=== PATIENT | female | born 1930 | race Caucasian/White ===

== ENCOUNTER 2016-04-29 09:36 | Emergency (ER) | payer MEDICARE, BC ==
[2016-04-29] MEDS ORDERED: SODIUM CHLORIDE 0.9% 1,000 ML IV STA (10:11)
[2016-04-29] MEDS ORDERED: DIPH,PERTUS(ACELL)TETVAC-LF 0.5 ML VIAL IM ONE (10:11)
--- NOTE | 2016-04-29 10:17 | ED ---
Fall HPI <You Dick - Last Filed: 04/29/16 10:23> - General Source: patient, EMS Mode of arrival: EMS <Hi Rocha - Last Filed: 04/29/16 14:04> - General Chief Complaint: Fall Stated Complaint: Fall Time Seen by Provider: 04/29/16 10:03 - History of Present Illness Initial Comments: Patient is a 85yo female presenting after a fall. Patient states she rolled out of bed estimated at 3-4 feet off the ground. Patient denies head injury or LOC. Patient with right hand skin tear and left knee pain. Patient was unable to ambulate and pushed her "life alert." Patient does take Coumadin for PE. Patient denies fever, chills, chest pain, shortness breath, nausea, vomiting, abdominal pain, dysuria. Patient denies any numbness. (Hi Rocha) - Related Data Home Medications Medication Instructions Recorded Confirmed Carbidopa-Levodopa 25-100 mg 1 tab PO BID 10/05/14 04/29/16 [Sinemet 25-100] Donepezil HCl [Aricept] 10 mg PO HS 10/05/14 04/29/16 Oxybutynin Chloride [Ditropan] 5 mg PO BID 10/05/14 04/29/16 Simvastatin [Zocor] 40 mg PO HS 10/05/14 04/29/16 Triamterene-Hctz 37.5-25Mg 1 tab PO DAILY 10/05/14 04/29/16 [Maxzide-25] Warfarin Sodium 6 mg PO SUMOWEFRSA 10/05/14 04/29/16 Calcium Carbonate [Calcium] 600 mg PO DAILY 07/08/15 04/29/16 Multivitamins, Thera [Multivitamin] 1 tab PO DAILY 07/08/15 04/29/16 Ranitidine HCl [Zantac] 150 mg PO BID 07/08/15 04/29/16 Warfarin Sodium 3 mg PO TUTH 07/08/15 04/29/16 Previous Rx's Medication Instructions Recorded traMADol HCL [Ultram] 50 mg PO Q6HR PRN #30 tab 09/17/15 Allergies Allergy/AdvReac Type Severity Reaction Status Date / Time No Known Allergies Allergy Verified 04/29/16 10:03 Review of Systems ROS Other: All systems not noted in ROS Statement are negative. <You Dick - Last Filed: 04/29/16 10:23> ROS Other: All systems not noted in ROS Statement are negative. <Hi Rocha - Last Filed: 04/29/16 14:04> ROS Statement: Those systems with pertinent positive or pertinent negative responses have been documented in the HPI. Constitutional: No fever and no chills. HENT: No congestion, no rhinorrhea and no sore throat. Eyes: No discharge and no redness. Respiratory: No cough and no shortness of breath. Cardiovascular: No chest pain and no palpitations. Gastrointestinal: No nausea, no vomiting, no abdominal pain and no diarrhea. Genitourinary: No dysuria and no hematuria. Musculoskeletal: No back pain and +arthralgias. Skin: Positive skin tear. No pallor and no rash. Neurological: No dizziness and No headaches. (Hi Rocha) Past Medical History Past Medical History: Hyperlipidemia, Hypertension, Pulmonary Embolus (PE) Additional Past Medical History / Comment(s): breast ca History of Any Multi-Drug Resistant Organisms: None Reported Past Surgical History: Breast Surgery, Cholecystectomy Additional Past Surgical History / Comment(s): thyroid cyst Past Psychological History: No Psychological Hx Reported Smoking Status: Never smoker Past Alcohol Use History: None Reported Past Drug Use History: None Reported <Hi Rocha - Last Filed: 04/29/16 14:04> General Exam <You Dick - Last Filed: 04/29/16 10:23> Limitations: no limitations <Hi Rocha - Last Filed: 04/29/16 14:04> - General Exam Comments Initial Comments: Constitutional: Patient appears well-developed and well-nourished. No distress. Head: Normocephalic and atraumatic. Eyes: Conjunctivae and EOM are normal. Right eye exhibits no discharge. Left eye exhibits no discharge. No scleral icterus. Neck: Normal range of motion. Neck supple. Cardiovascular: Normal rate and regular rhythm. +murmur heard. Pulmonary/Chest: Effort normal and breath sounds normal. No respiratory distress. No wheezes. Abdominal: Soft. No distension. There is no tenderness. There is no rebound and no guarding. Right shoulder: Nontender, no crepitus, no deformity Left shoulder: Nontender, no crepitus, no deformity Right arm: Nontender, no crepitus, no deformity Left arm: Nontender, no crepitus, no deformity Right hand: 5 cm skin tear to the dorsal aspect of right hand Left hand: Nontender, no crepitus, no deformity Chest: Nontender, no crepitus, no deformity Pelvis: Stable, nontender, no crepitus, no deformity Back: Nontender, no crepitus, no deformity, no step-offs Right leg: Nontender, no crepitus, no deformity Left leg: Mild abrasion to left knee with mild tenderness. No deformity, no crepitus. Distal sensation and pulses are present in all 4 extremities. Neurological: Patient alert and oriented to person, place, and time. Skin: Skin is warm and dry. Not diaphoretic. Nursing notes and vitals reviewed. (Hi Rocha) Procedures - Laceration Laceration #1 Consent Obtained: verbal consent Time Out Performed: Yes Indication: laceration Site: hand Size (cm): 7 Description: flap Pre-repair: irrigated extensively, deep structures intact Patient Tolerated Procedure: well <Hi Rocha - Last Filed: 04/29/16 14:04> - Laceration Laceration #1 Additional Comments: 3 Steri-Strips applied with approximated edges (Hi Rocha) Medical Decision Making <You Dick - Last Filed: 04/29/16 10:23> - Lab Data Result diagrams: 04/29/16 10:15 04/29/16 12:22 <Hi Rocha - Last Filed: 04/29/16 14:04> - Medical Decision Making Patient was reevaluated by myself, Dr. Dick. Patient resting comfortably in bed. Patient states she did fall out of bed however denies any significant injury. Patient does not recall hitting her head. Head is atraumatic. Neck is nontender. Lungs are clear. Patient does have a heart murmur on auscultation. Chart and orders reviewed. Patient will be followed. Case was earlier discussed with Dr. Abbott. (You Dick) - Lab Data Lab Results 04/29/16 04/29/16 04/29/16 Range/Units 10:15 10:15 10:39 WBC 6.7 (3.8-10.6) k/uL RBC 4.96 (3.80-5.40) m/uL Hgb 15.7 (11.4-16.0) gm/dL Hct 46.0 (34.0-46.0) % MCV 92.7 (80.0-100.0) fL MCH 31.6 (25.0-35.0) pg MCHC 34.1 (31.0-37.0) g/dL RDW 12.8 (11.5-15.5) % Plt Count 157 (150-450) k/uL Neutrophils % 43 % Lymphocytes % 46 % Monocytes % 6 % Eosinophils % 2 % Basophils % 1 % Neutrophils # 2.9 (1.3-7.7) k/uL Lymphocytes # 3.0 (1.0-4.8) k/uL Monocytes # 0.4 (0-1.0) k/uL Eosinophils # 0.1 (0-0.7) k/uL Basophils # 0.0 (0-0.2) k/uL PT 38.3 H (9.0-12.0) sec INR 3.9 (<1.1) APTT 35.3 H (22.0-30.0) sec Sodium (137-145) mmol/L Potassium (3.5-5.1) mmol/L Chloride (98-107) mmol/L Carbon Dioxide (22-30) mmol/L Anion Gap mmol/L BUN (7-17) mg/dL Creatinine (0.52-1.04) mg/dL Est GFR (MDRD) Af Amer (>60 ml/min/1.73 sqM) Est GFR (MDRD) Non-Af (>60 ml/min/1.73 sqM) Glucose (74-99) mg/dL POC Glucose (mg/dL) 115 H (75-99) mg/dL POC Glu Radiologist Physician ID Branch, [place] Calcium (8.4-10.2) mg/dL Total Bilirubin (0.2-1.3) mg/dL AST (14-36) U/L ALT (9-52) U/L Alkaline Phosphatase (38-126) U/L Total Protein (6.3-8.2) g/dL Albumin (3.5-5.0) g/dL Lipase (23-300) U/L Urine Color Urine Appearance (Clear) Urine pH (5.0-8.0) Ur Specific [place] (1.001-1.035) Urine Protein (Negative) Urine Glucose (UA) (Negative) Urine Ketones (Negative) Urine Blood (Negative) Urine Nitrate (Negative) Urine Bilirubin (Negative) Urine Urobilinogen (<2.0) mg/dL Ur Leukocyte Esterase (Negative) Urine RBC (0-5) /hpf Urine WBC (0-5) /hpf Ur Squamous Epith Cells (0-4) /hpf Hyaline Casts (0-2) /lpf 04/29/16 04/29/16 Range/Units 12:22 13:10 WBC (3.8-10.6) k/uL RBC (3.80-5.40) m/uL Hgb (11.4-16.0) gm/dL Hct (34.0-46.0) % MCV (80.0-100.0) fL MCH (25.0-35.0) pg MCHC (31.0-37.0) g/dL RDW (11.5-15.5) % Plt Count (150-450) k/uL Neutrophils % % Lymphocytes % % Monocytes % % Eosinophils % % Basophils % % Neutrophils # (1.3-7.7) k/uL Lymphocytes # (1.0-4.8) k/uL Monocytes # (0-1.0) k/uL Eosinophils # (0-0.7) k/uL Basophils # (0-0.2) k/uL PT (9.0-12.0) sec INR (<1.1) APTT (22.0-30.0) sec Sodium 142 (137-145) mmol/L Potassium 3.4 L (3.5-5.1) mmol/L Chloride 106 (98-107) mmol/L Carbon Dioxide 23 (22-30) mmol/L Anion Gap 13 mmol/L BUN 22 H (7-17) mg/dL Creatinine 1.45 H (0.52-1.04) mg/dL Est GFR (MDRD) Af Amer 41 (>60 ml/min/1.73 sqM) Est GFR (MDRD) Non-Af 34 (>60 ml/min/1.73 sqM) Glucose 118 H (74-99) mg/dL POC Glucose (mg/dL) (75-99) mg/dL POC Glu Radiologist Physician ID Calcium 9.5 (8.4-10.2) mg/dL Total Bilirubin 1.2 (0.2-1.3) mg/dL AST 21 (14-36) U/L ALT 29 (9-52) U/L Alkaline Phosphatase 71 (38-126) U/L Total Protein 6.8 (6.3-8.2) g/dL Albumin 3.8 (3.5-5.0) g/dL Lipase 113 (23-300) U/L Urine Color Yellow Urine Appearance Clear (Clear) Urine pH 6.0 (5.0-8.0) Ur Specific [place] 1.012 (1.001-1.035) Urine Protein Negative (Negative) Urine Glucose (UA) Negative (Negative) Urine Ketones Negative (Negative) Urine Blood Trace H (Negative) Urine Nitrate Negative (Negative) Urine Bilirubin Negative (Negative) Urine Urobilinogen <2.0 (<2.0) mg/dL Ur Leukocyte Esterase Negative (Negative) Urine RBC 4 (0-5) /hpf Urine WBC 1 (0-5) /hpf Ur Squamous Epith Cells <1 (0-4) /hpf Hyaline Casts 1 (0-2) /lpf Disposition <You Dick - Last Filed: 04/29/16 10:23> <Hi Rocha - Last Filed: 04/29/16 14:04> Clinical Impression: Fall, Skin tear Disposition: HOME SELF-CARE Condition: Good Instructions: Fall Prevention for Older Adults (ED), Acute Wound Care (ED) Referrals: Rodriguez Deutsch MD [Primary Care Provider] - 1-2 days
[2016-04-29 10:41] LABS: Glucose,Whole Blood 115 mg/dL (75-99)
[2016-04-29 10:52] LABS: Basophils % (A) 1 %; CH 32.5; CHCM 35.2; Eosinophils # (A) 0.1 k/uL (0-0.7); Eosinophils % (A) 2 %; HDW 2.53; HGB 15.7 gm/dL (11.4-16.0); Luc # (Auto) 0.18; Luc % (Auto) 3; Lymphocytes % (A) 46 %; MCH 31.6 pg (25.0-35.0); MCHC 34.1 g/dL (31.0-37.0); MCV 92.7 fL (80.0-100.0); Mean Platelet Volume 9.2; Monocytes # (A) 0.4 k/uL (0-1.0); Monocytes % (A) 6 %; Neutrophils # (A) 2.9 k/uL (1.3-7.7); Neutrophils % (A) 43 %; RBC 4.96 m/uL (3.80-5.40); RDW 12.8 % (11.5-15.5); WBC 6.7 k/uL (3.8-10.6); WBC (Perox) 7.03
[2016-04-29 11:11] LABS: INR 3.9 (<1.1); Partial Thromboplastin Time 35.3 sec (22.0-30.0); Prothrombin Time 38.3 sec (9.0-12.0)
--- NOTE | 2016-04-29 11:43 | CT ---
EXAMINATION TYPE: CT brain mervin wo con DATE OF EXAM: 04/29/2016 11:27 AM COMPARISON: NONE HISTORY: Fall from bed CT DLP: 1108.4 mGycm, Automated exposure control for dose reduction was used. CONTRAST: None CT of the brain is performed utilizing 3 mm thick sections through the posterior fossa and 3 mm thick sections through the remaining calvarium. Study is performed within 24 hours of arrival to the hospital. No abnormal hyperdensity is present to suggest an acute intracranial hemorrhage. No mass lesion is evident. No acute infarcts are evident. The ventricular white matter hypodensity is present, most likely on the basis of chronic white matter ischemic changes. Ventricles and sulci are prominent for the patient age. Paranasal sinuses and mastoid air cells within the [id number] are clear. Hyperostosis frontalis internus is present. IMPRESSIONS: 1. Atrophy with periventricular white matter ischemic changes CT cervical spine. COMPARISON: None CT of the cervical spine is performed in the axial plane at 2 mm thick sections. Reconstructed image s in the coronal, and sagittal plane are reviewed on the computer. No acute fractures are evident. Vertebral body alignment is normal. There is diffuse loss of disc height throughout the cervical spine. Small anterior vertebral body spu rs are present especially noted at C4, C5, C6. Vertebral body heights are preserved. No spinal canal stenosis is evident. There is left foraminal narrowing which appears severe moderate foraminal narrowing on the right whic h appears moderate at C3-4. Mild bilateral foraminal narrowing is present C3 5. IMPRESSIONS: 1. Degenerative disc changes. 2. Uncovertebral joint hypertrophy contributes to severe foraminal narrowing C3-4 C4-5. 3. No acute osseous abnormality
--- NOTE | 2016-04-29 12:50 | XR ---
EXAMINATION TYPE: XR chest 1V portable DATE OF EXAM: 04/29/2016 12:38 PM COMPARISON: 12/06/2011 HISTORY: Fell out of bed. Chest pain. TECHNIQUE: Single frontal view of the chest is obtained. FINDINGS: There is no heart failure nor confluent pneumonic infiltrate. There is mild coarsening of interstitial markings. Thoracic aorta is atheromatous. Bony thorax appears intact. IMPRESSION: Pulmonary fibrotic changes. No acute lung disease. No change.
[2016-04-29 12:51] LABS: Calcium 9.5 mg/dL (8.4-10.2); Potassium 3.4 mmol/L (3.5-5.1); Total Bilirubin 1.2 mg/dL (0.2-1.3); Total Protein 6.8 g/dL (6.3-8.2)
--- NOTE | 2016-04-29 12:52 | XR ---
EXAMINATION TYPE: XR hand complete RT DATE OF EXAM: 04/29/2016 12:39 PM COMPARISON: NONE HISTORY: Fell out of bed TECHNIQUE: . 3 views FINDINGS: There is osteopenia. Metacarpals appear intact. There is narrowing of the IP joint spaces. There are no erosions. IMPRESSION: There are some osteoarthritic changes. No fracture.
--- NOTE | 2016-04-29 12:54 | XR ---
EXAMINATION TYPE: XR pelvis AP view DATE OF EXAM: 04/29/2016 12:39 PM COMPARISON: NONE HISTORY: Fell out of bed TECHNIQUE: Single view FINDINGS: The pelvic ring is intact. There is a right hip prosthesis. Sacroiliac joints are intact. T here is moderate osteoarthritis in the left hip joint. IMPRESSION: Left hip osteoarthritis. No fracture seen.
--- NOTE | 2016-04-29 12:55 | XR ---
EXAMINATION TYPE: XR knee complete LT DATE OF EXAM: 04/29/2016 12:39 PM COMPARISON: NONE HISTORY: Fell out of bed. Pain. TECHNIQUE: 3 views FINDINGS: There is narrowing of the lateral joint space. There is spurring on the superior patella. I see no fracture nor dislocation. There is no definite joint effusion. IMPRESSION: Osteoarthritis. No fracture.
[2016-04-29 13:33] LABS: Appearance,Urine Clear (Clear); Bilirubin,Urine Negative (Negative); Glucose,Urine (UA) Negative (Negative); Ketones,Urine Negative (Negative); Leukocyte Esterase,Urine Negative (Negative); Nitrite,Urine Negative (Negative); Particle Count 1430; Protein,Urine Negative (Negative); RBC,Urine 4 /hpf (0-5); Specific Gravity,Urine 1.012 (1.001-1.035); Squamous Epithelial Cell,Urine <1 /hpf (0-4); UA Billing (MACRO vs. MICRO) MICRO; Urobilinogen,Urine <2.0 mg/dL (<2.0); WBC,Urine 1 /hpf (0-5)
[2016-04-29 14:35] VITALS: BP 140/68; PULSE 64; RESP 18; TEMP 98.4
== END 2016-04-29 14:20 | disposition home or self-care (01) ==
LOC: EC 09:36
DX: S61.411A Laceration without foreign body of right hand, initial encounter (principal); S80.212A Abrasion, left knee, initial encounter; E78.5 Hyperlipidemia, unspecified; I10 Essential (primary) hypertension; Z23 Encounter for immunization; Z85.3 Personal history of malignant neoplasm of breast; Z86.711 Personal history of pulmonary embolism; Z79.01 Long term (current) use of anticoagulants; Z79.899 Other long term (current) drug therapy; W06.XXXA Fall from bed, initial encounter
CPT/HCPCS: 36415; 70450; 71010; 72125; 72170; 80053; 81001; 83690; 85025; 85610; 85730; 87086; 90471; 90715; 93005; 96360; 96361; 99284

== ENCOUNTER → 2016-08-18 | Outpatient (CLI) | payer MEDICARE, BC ==
--- NOTE | 2016-08-21 07:07 | MM ---
Reason for exam: additional evaluation requested from prior study. Last mammogram was performed 1 year ago. History: Patient is postmenopausal and has history of breast cancer at age 63. Family history of breast cancer in sister, premenopausal breast cancer in sister at age 40, and breast cancer in paternal aunt at age 30. Mastectomy of the left breast, 1994. Excisional biopsy of the left breast. Physical Findings: Nurse did not find any significant physical abnormalities on exam. MG Diagnostic Mammo RT w CAD CC, MLO, and XCCL view(s) were taken of the right breast. Prior study comparison: August 13, 2015, right breast MG 3d diag mammo w/cad RT. August 07, 2014, right breast MG diagnostic mammo RT w CAD. The breast tissue is almost entirely fat. Finding: There are linear calcifications in the right breast consistent with secretory disease. No significant new findings when compared with previous films. These results were verbally communicated with the patient and result sheet given to the patient on 08/18/16. ASSESSMENT: Benign, BI-RAD 2 RECOMMENDATION: Routine screening mammogram of the right breast in 1 year.
== END | disposition home or self-care (01) ==
LOC: RADMAMWWP 12:49
PROVIDERS: ATTEND Surgery
DX: R92.8 Other abnormal and inconclusive findings on diagnostic imaging of breast (principal); Z85.3 Personal history of malignant neoplasm of breast

== ENCOUNTER 2016-09-11 19:57 | Inpatient (IN) | payer MEDICARE, BC ==
--- NOTE | 2016-09-11 20:36 | ED ---
Dizziness HPI - General Chief Complaint: Dizziness Stated Complaint: Chest Pain Time Seen by Provider: 09/11/16 20:32 Source: patient, family Mode of arrival: wheelchair Limitations: no limitations - History of Present Illness Initial Comments: This patient is an 85-year-old woman who presents after she had an episode of dizziness or lightheadedness tonight she does have some combination of these feelings. She states that the symptoms came on tonight when she sat down to have her evening meal. She also broke into a sweat. Patient's daughter reports that she was also describing tightness in her chest, but the patient is denying any chest pain. The symptoms did resolve about the time that she was getting to the hospital tonight. She states that she is currently feeling well and does want to go home. MD Complaint: lightheadedness, near syncope -: hour(s) Timing: sudden onset Description: lightheadedness, off-balance History of Same: Yes History of Trauma: No Severity: severe Worsens With: nothing Associated Symptoms: diaphoresis - Related Data Home Medications Medication Instructions Recorded Confirmed Carbidopa-Levodopa 25-100 mg 1 tab PO BID 10/05/14 09/11/16 [Sinemet 25-100] Donepezil HCl [Aricept] 10 mg PO HS 10/05/14 09/11/16 Oxybutynin Chloride [Ditropan] 5 mg PO BID 10/05/14 09/11/16 Simvastatin [Zocor] 40 mg PO HS 10/05/14 09/11/16 Triamterene-Hctz 37.5-25Mg 1 tab PO DAILY 10/05/14 09/11/16 [Maxzide-25] Warfarin Sodium 6 mg PO SUMOWEFRSA 10/05/14 09/11/16 Calcium Carbonate [Calcium] 600 mg PO DAILY 07/08/15 09/11/16 Multivitamins, Thera [Multivitamin] 1 tab PO DAILY 07/08/15 09/11/16 Warfarin Sodium 3 mg PO TUTH 07/08/15 09/11/16 Allergies Allergy/AdvReac Type Severity Reaction Status Date / Time No Known Allergies Allergy Verified 09/11/16 20:28 Review of Systems ROS Statement: Those systems with pertinent positive or pertinent negative responses have been documented in the HPI. ROS Other: All systems not noted in ROS Statement are negative. Constitutional: Denies: fever, chills, weakness Eyes: Denies: vision change Respiratory: Reports: dyspnea. Denies: cough, wheezes, hemoptysis Cardiovascular: Reports: as per HPI, chest pain. Denies: palpitations, orthopnea, edema, syncope Gastrointestinal: Denies: abdominal pain, nausea, vomiting Genitourinary: Denies: dysuria, hematuria Musculoskeletal: Denies: back pain Skin: Denies: rash Neurological: Denies: headache, weakness, numbness Past Medical History Past Medical History: Hyperlipidemia, Hypertension, Pulmonary Embolus (PE) Additional Past Medical History / Comment(s): breast ca History of Any Multi-Drug Resistant Organisms: None Reported Past Surgical History: Breast Surgery, Cholecystectomy Additional Past Surgical History / Comment(s): thyroid cyst Past Psychological History: No Psychological Hx Reported Smoking Status: Never smoker Past Alcohol Use History: None Reported Past Drug Use History: None Reported General Exam Limitations: no limitations General appearance: alert, in no apparent distress Head exam: Present: atraumatic, normocephalic Eye exam: Present: normal appearance. Absent: scleral icterus, conjunctival injection ENT exam: Present: normal oropharynx Neck exam: Present: normal inspection Respiratory exam: Present: normal lung sounds bilaterally. Absent: respiratory distress, wheezes, rales, rhonchi, stridor Cardiovascular Exam: Present: regular rate, normal rhythm, systolic murmur ( Patient has a harsh grade 3/6 systolic ejection murmur). Absent: diastolic murmur, rubs, gallop GI/Abdominal exam: Present: soft. Absent: distended, tenderness, guarding, rebound, mass Extremities exam: Present: normal inspection, normal capillary refill. Absent: pedal edema, calf tenderness Back exam: Present: normal inspection. Absent: CVA tenderness (R), CVA tenderness (L) Neurological exam: Present: alert Skin exam: Present: warm, dry, intact, normal color. Absent: rash Course Vital Signs 09/11/16 20:01 Temperature 97.3 F L Pulse Rate 57 L Respiratory 16 Rate Blood Pressure 159/72 O2 Sat by Pulse 98 Oximetry EKG Findings - EKG Comments: EKG Findings:: There is an RSR prime V1 suggesting possible right ventricular conduction delay. - EKG Results: EKG: interpreted by ERMD, sinus rhythm EKG shows: bradycardia (Rate 59 bpm) - Blocks, [place], Hypertrophy, ST Abn: AV and intraventricular conduction: left anterior fascicular block Medical Decision Making - Medical Decision Making This patient is an 85-year-old woman presenting with presyncopal symptoms as well as diaphoresis and chest pain. She does have a significant cardiac murmur on the exam and both the patient and her family deny any previous knowledge of this. I'm not able find a previous echocardiogram, and therefore will admit patient to have this and cardiology consultation. Suspect that symptoms are insurance follow up representative of aortic stenosis. - Lab Data Result diagrams: 09/11/16 20:22 09/11/16 20:22 Lab Results 09/11/16 09/11/16 09/11/16 Range/Units 20:22 20:22 20:22 WBC 10.1 (3.8-10.6) k/uL RBC 4.88 (3.80-5.40) m/uL Hgb 15.8 (11.4-16.0) gm/dL Hct 47.5 H (34.0-46.0) % MCV 97.5 (80.0-100.0) fL MCH 32.4 (25.0-35.0) pg MCHC 33.2 (31.0-37.0) g/dL RDW 13.7 (11.5-15.5) % Plt Count 183 (150-450) k/uL Neutrophils % 73 % Lymphocytes % 18 % Monocytes % 6 % Eosinophils % 1 % Basophils % 1 % Neutrophils # 7.3 (1.3-7.7) k/uL Lymphocytes # 1.8 (1.0-4.8) k/uL Monocytes # 0.6 (0-1.0) k/uL Eosinophils # 0.1 (0-0.7) k/uL Basophils # 0.1 (0-0.2) k/uL Sodium 139 (137-145) mmol/L Potassium 5.2 H (3.5-5.1) mmol/L Chloride 105 (98-107) mmol/L Carbon Dioxide 22 (22-30) mmol/L Anion Gap 12 mmol/L BUN 29 H (7-17) mg/dL Creatinine 1.30 H (0.52-1.04) mg/dL Est GFR (MDRD) Af Amer 47 (>60 ml/min/1.73 sqM) Est GFR (MDRD) Non-Af 39 (>60 ml/min/1.73 sqM) Glucose 160 H (74-99) mg/dL Calcium 9.8 (8.4-10.2) mg/dL Magnesium 1.9 (1.6-2.3) mg/dL Total Bilirubin 1.6 H (0.2-1.3) mg/dL AST 52 H (14-36) U/L ALT 21 (9-52) U/L Alkaline Phosphatase 87 (38-126) U/L Total Creatine Kinase 66 (30-135) U/L CK-MB (CK-2) 0.4 (0.0-2.4) ng/mL CK-MB (CK-2) Rel Index 0.6 Troponin I 0.017 (0.000-0.034) ng/mL NT-Pro-B Natriuret Pep pg/mL Total Protein 7.6 (6.3-8.2) g/dL Albumin 4.5 (3.5-5.0) g/dL 09/11/16 Range/Units 20:22 WBC (3.8-10.6) k/uL RBC (3.80-5.40) m/uL Hgb (11.4-16.0) gm/dL Hct (34.0-46.0) % MCV (80.0-100.0) fL MCH (25.0-35.0) pg MCHC (31.0-37.0) g/dL RDW (11.5-15.5) % Plt Count (150-450) k/uL Neutrophils % % Lymphocytes % % Monocytes % % Eosinophils % % Basophils % % Neutrophils # (1.3-7.7) k/uL Lymphocytes # (1.0-4.8) k/uL Monocytes # (0-1.0) k/uL Eosinophils # (0-0.7) k/uL Basophils # (0-0.2) k/uL Sodium (137-145) mmol/L Potassium (3.5-5.1) mmol/L Chloride (98-107) mmol/L Carbon Dioxide (22-30) mmol/L Anion Gap mmol/L BUN (7-17) mg/dL Creatinine (0.52-1.04) mg/dL Est GFR (MDRD) Af Amer (>60 ml/min/1.73 sqM) Est GFR (MDRD) Non-Af (>60 ml/min/1.73 sqM) Glucose (74-99) mg/dL Calcium (8.4-10.2) mg/dL Magnesium (1.6-2.3) mg/dL Total Bilirubin (0.2-1.3) mg/dL AST (14-36) U/L ALT (9-52) U/L Alkaline Phosphatase (38-126) U/L Total Creatine Kinase (30-135) U/L CK-MB (CK-2) (0.0-2.4) ng/mL CK-MB (CK-2) Rel Index Troponin I (0.000-0.034) ng/mL NT-Pro-B Natriuret Pep 257 pg/mL Total Protein (6.3-8.2) g/dL Albumin (3.5-5.0) g/dL Disposition Clinical Impression: Near syncope, Murmur, cardiac Disposition: ADMITTED IP TO THIS HOSP Condition: Fair Referrals: Rodriguez Deutsch MD [Primary Care Provider] - 1-2 days
[2016-09-11 20:41] LABS: Basophils # (A) 0.1 k/uL (0-0.2); Basophils % (A) 1 %; CH 33.4; CHCM 34.4; Eosinophils # (A) 0.1 k/uL (0-0.7); Eosinophils % (A) 1 %; HCT 47.5 % (34.0-46.0); HDW 2.37; HGB 15.8 gm/dL (11.4-16.0); Luc # (Auto) 0.16; Luc % (Auto) 2; Lymphocytes # (A) 1.8 k/uL (1.0-4.8); Lymphocytes % (A) 18 %; MCH 32.4 pg (25.0-35.0); MCHC 33.2 g/dL (31.0-37.0); MCV 97.5 fL (80.0-100.0); Mean Platelet Volume 8.9; Monocytes # (A) 0.6 k/uL (0-1.0); Monocytes % (A) 6 %; Neutrophils # (A) 7.3 k/uL (1.3-7.7); Neutrophils % (A) 73 %; RBC 4.88 m/uL (3.80-5.40); RDW 13.7 % (11.5-15.5); WBC 10.1 k/uL (3.8-10.6); WBC (Perox) 9.45
[2016-09-11 20:54] LABS: Calcium 9.8 mg/dL (8.4-10.2); Magnesium 1.9 mg/dL (1.6-2.3); Potassium 5.2 mmol/L (3.5-5.1); Total Bilirubin 1.6 mg/dL (0.2-1.3); Total Protein 7.6 g/dL (6.3-8.2)
[2016-09-11 21:09] LABS: Creatine Kinase MB 0.4 ng/mL (0.0-2.4); Troponin I 0.017 ng/mL (0.000-0.034)
--- NOTE | 2016-09-11 21:43 | XR ---
EXAMINATION TYPE: XR chest 1V portable DATE OF EXAM: 09/11/2016 COMPARISON: 04/29/2016 HISTORY: Dizziness TECHNIQUE: Single frontal view of the chest is obtained. FINDINGS: There is no heart failure nor confluent pneumonic infiltrate. There is coarsening of inter stitial markings. Thoracic aorta is atheromatous. There are chest leads. IMPRESSION: Pulmonary fibrotic changes. No acute lung disease. No change.
[2016-09-11 23:10] VITALS: BMI 28.5
[2016-09-12 02:33] LABS: Prothrombin Time 29.1 sec (9.0-12.0)
[2016-09-12 02:36] LABS: Creatine Kinase 36 U/L (30-135)
[2016-09-12 02:50] LABS: Creatine Kinase MB 0.4 ng/mL (0.0-2.4); Troponin I <0.012 ng/mL (0.000-0.034)
[2016-09-12] MEDS: MULTIVITAMINS, THERA 1 EACH TAB PO SCH (08:39)
[2016-09-12] MEDS: OXYBUTYNIN CHLORIDE 5 MG TAB PO SCH ×2 (08:39→21:37)
[2016-09-12] MEDS: CALCIUM CARBONATE 500 MG CHEWABLE PO SCH (08:39)
[2016-09-12] MEDS: CARBIDOPA-LEVODOPA 25-100 MG 1 EACH TAB PO SCH ×3 (08:39→21:37)
[2016-09-12] MEDS: TRIAMTERENE-HCTZ 37.5-25MG 1 EACH TAB PO SCH (08:39)
[2016-09-12] MEDS ORDERED: ASPIRIN 325 MG TAB PO SCH (09:00)
[2016-09-12 09:06] LABS: Cholesterol 206 mg/dL (<200); HDL Cholesterol 76 mg/dL (40-60); Triglycerides 97 mg/dL (<150)
[2016-09-12 09:25] LABS: Creatine Kinase MB 0.3 ng/mL (0.0-2.4); Troponin I <0.012 ng/mL (0.000-0.034)
[2016-09-12 09:31] LABS: Creatine Kinase 37 U/L (30-135)
--- NOTE | 2016-09-12 10:35 | ECHOF ---
Referral Reason:near syncope, new murmur MEASUREMENTS -------- HEIGHT: 172.7 cm WEIGHT: 84.8 kg BP: 143/67 IVSd: 1.2 cm (0.6 - 1.1) LVIDd: 3.6 cm (3.9 - 5.3) LVPWd: 1.2 cm (0.6 - 1.1) IVSs: 1.7 cm LVIDs: 1.6 cm LVPWs: 1.7 cm Ao Diam: 3.2 cm (2.0 - 3.7) AV Cusp: 1.1 cm (1.5 - 2.6) LA Diam: 2.9 cm (2.7 - 3.8) MV EXCURSION: 13.883 mm (> 18.000) MV EF SLOPE: 120 mm/s (70 - 150) EPSS: 2.8 cm MV E Cameron: 0.85 m/s MV DecT: 314 ms MV A Cameron: 0.94 m/s MV E/A Ratio: 0.90 AV maxP.24 mmHg AV meanP.97 mmHg AR PHT: 915 ms RAP: 5.00 mmHg RVSP: 21.42 mmHg FINDINGS -------- Sinus rhythm. This was a technically good study. There is mild concentric left ventricular hypertrophy. Overall left ventricular systolic function is normal with, an EF between 55 - 60 %. The right ventricle is normal in size and function. The left atrium is normal in size. The right atrium is normal in size. Aortic valve is trileaflet and is severely thickened. Trace amount of aortic regurgitation. There is moderate aortic stenosis present. Peak/mean gradient across the Aortic Valve is 31.24mmHg / 18.97mmHg. The mitral valve leaflets are mildly thickened. Mild mitral annular calcification present. Mild mitral regurgitation is present. Mild tricuspid regurgitation present. The right ventricular systolic pressure, as measured by Doppler, is 21.42mmHg. Pulmonic valve appears structurally normal. The aortic root size is normal. The pericardium is normal. CONCLUSIONS -------- 1. Sinus rhythm. 2. There is moderate aortic stenosis present. 3. Peak/mean gradient across the Aortic Valve is 31.24mmHg / 18.97mmHg. 4. The mitral valve leaflets are mildly thickened. 5. Mild mitral annular calcification present. 6. Mild mitral regurgitation is present. 7. Mild tricuspid regurgitation present. 8. The right ventricular systolic pressure, as measured by Doppler, is 21.42mmHg. 9. Pulmonic valve appears structurally normal. 10. The aortic root size is normal. 11. The pericardium is normal. 12. This was a technically good study. 13. There is mild concentric left ventricular hypertrophy. 14. Overall left ventricular systolic function is normal with, an EF between 55 - 60 %. 15. The right ventricle is normal in size and function. 16. The left atrium is normal in size. 17. The right atrium is normal in size. 18. Aortic valve is trileaflet and is severely thickened. 19. Trace amount of aortic regurgitation. HALF SECTION IRONER: Ana Maria Chaves RDCS
--- NOTE | 2016-09-12 13:44 | P.CRDCN ---
History of Present Illness Consult date: 09/12/16 Requesting physician: [place] Ferrari Reason for Consult (text): Dizziness Chief complaint: Diaphoresis and dizziness History of present illness: This is a pleasant 85-year-old female with history of hypertension, hyperlipidemia, Parkinson's, prior pulmonary embolism, on Coumadin, who presented to the hospital with symptoms of sudden onset of diaphoresis with associated dizziness. Patient states that she was sitting eating her dinner, became extremely diaphoretic and dizzy. Shortly thereafter she had an episode of nausea with vomiting. By the time patient arrived to the hospital, symptoms had pretty much resolved. Shunt denies having any chest pain, however ER documentation suggests that the daughter mentioned she had a tight feeling in her chest. EKG on admission here showed a normal sinus rhythm, with ST T changes noted in the anterior lateral leads. White blood cell count normal, hemoglobin 15.8, platelet count 183. D-dimer 0.43, potassium 5.2. BUN 29, creatinine 1.3. Troponins 0.017, 0.012, 0.012. BNP level 257. INR 3.0. Cholesterol 206, LDL 111, HDL 76. Chest x-ray reveals pulmonary fibrotic changes with no active lung disease. Blood pressure on arrival here 158/72 with a heart rate in the 50s. Blood pressure this morning 122/78 with a heart rate in the 60s, afebrile. At the time of my examination, patient denies any dizziness, no diaphoresis, no chest discomfort, breathing overall is stable. She is currently on aspirin 325 mg daily, Lipitor 20 mg daily, triamterene hydrochlorothiazide, Coumadin 6 mg alternating with 3 mg every other day. Past Medical History Past Medical History: Cancer, Hyperlipidemia, Hypertension, Pulmonary Embolus ( PE) Additional Past Medical History / Comment(s): breast ca w/ L masectomy History of Any Multi-Drug Resistant Organisms: None Reported Past Surgical History: Breast Surgery, Cholecystectomy Additional Past Surgical History / Comment(s): thyroid cyst Past Anesthesia/Blood Transfusion Reactions: No Reported Reaction Past Psychological History: No Psychological Hx Reported Smoking Status: Never smoker Past Alcohol Use History: None Reported Past Drug Use History: None Reported Medications and Allergies Home Medications Medication Instructions Recorded Confirmed Type Carbidopa-Levodopa 25-100 mg 1 tab PO BID 10/05/14 09/11/16 History [Sinemet 25-100] Donepezil HCl [Aricept] 10 mg PO HS 10/05/14 09/11/16 History Oxybutynin Chloride [Ditropan] 5 mg PO BID 10/05/14 09/11/16 History Simvastatin [Zocor] 40 mg PO HS 10/05/14 09/11/16 History Triamterene-Hctz 37.5-25Mg 1 tab PO DAILY 10/05/14 09/11/16 History [Maxzide-25] Warfarin Sodium 6 mg PO SUMOWEFRSA 10/05/14 09/11/16 History Calcium Carbonate [Calcium] 600 mg PO DAILY 07/08/15 09/11/16 History Multivitamins, Thera [Multivitamin] 1 tab PO DAILY 07/08/15 09/11/16 History Warfarin Sodium 3 mg PO TUTH 07/08/15 09/11/16 History Allergies Allergy/AdvReac Type Severity Reaction Status Date / Time No Known Allergies Allergy Verified 09/11/16 20:28 Physical Exam Vitals: Vital Signs Temp Pulse Pulse Resp BP BP Pulse Ox 09/12/16 12:00 97.2 F L 66 16 122/78 96 09/12/16 08:39 97.8 F 66 18 125/56 95 09/12/16 03:37 97.0 F L 60 18 143/67 92 L 09/12/16 00:00 97.2 F L 68 18 152/65 97 09/11/16 22:19 97.6 F 68 16 152/65 97 09/11/16 21:47 69 16 164/74 96 09/11/16 20:01 97.3 F L 57 L 16 159/72 98 Intake and Output 09/11/16 09/12/16 09/12/16 22:59 06:59 14:59 Intake Total 260 Output Total 300 Balance -300 260 Intake: IV 10 Invasive Line 1 10 Oral 250 Output: Urine 300 Other: Voiding Method Toilet Toilet Diaper Diaper # Voids 1 1 Weight 85.2 kg 84 kg PHYSICAL EXAMINATION: HEENT: Head is atraumatic, normocephalic. Pupils equal, round. Neck is supple. There is no elevated jugular venous pressure. HEART EXAMINATION: Heart S1, systolic ejection murmur suggestive of moderate to severe aortic stenosis is heard. CHEST EXAMINATION: Lungs are clear to auscultation and precussion. No chest wall tenderness is noted on palpation or with deep breathing. ABDOMEN: Soft, nontender. Bowel sounds are heard. No organomegaly noted. EXTREMITIES: 2+ peripheral pulses with no evidence of peripheral edema and no calf tenderness noted. NEUROLOGIC patient is awake, alert and oriented -3. . Results 09/11/16 20:22 09/11/16 20:22 Cardiac Enzymes 09/11/16 09/11/16 09/12/16 Range/Units 20:22 20:22 01:59 AST 52 H (14-36) U/L CK-MB (CK-2) 0.4 0.4 (0.0-2.4) ng/mL Troponin I 0.017 <0.012 (0.000-0.034) ng/mL 09/12/16 Range/Units 08:17 AST (14-36) U/L CK-MB (CK-2) 0.3 (0.0-2.4) ng/mL Troponin I <0.012 (0.000-0.034) ng/mL Coagulation 09/12/16 Range/Units 01:59 PT 29.1 H (9.0-12.0) sec APTT 30.0 (22.0-30.0) sec Lipids 09/12/16 Range/Units 08:17 Triglycerides 97 (<150) mg/dL Cholesterol 206 H (<200) mg/dL HDL Cholesterol 76 H (40-60) mg/dL CBC 09/11/16 Range/Units 20:22 WBC 10.1 (3.8-10.6) k/uL RBC 4.88 (3.80-5.40) m/uL Hgb 15.8 (11.4-16.0) gm/dL Hct 47.5 H (34.0-46.0) % Plt Count 183 (150-450) k/uL Comprehensive Metabolic Panel 09/11/16 Range/Units 20:22 Sodium 139 (137-145) mmol/L Potassium 5.2 H (3.5-5.1) mmol/L Chloride 105 (98-107) mmol/L Carbon Dioxide 22 (22-30) mmol/L BUN 29 H (7-17) mg/dL Creatinine 1.30 H (0.52-1.04) mg/dL Glucose 160 H (74-99) mg/dL Calcium 9.8 (8.4-10.2) mg/dL AST 52 H (14-36) U/L ALT 21 (9-52) U/L Alkaline Phosphatase 87 (38-126) U/L Total Protein 7.6 (6.3-8.2) g/dL Albumin 4.5 (3.5-5.0) g/dL Current Medications Generic Name Dose Route Start Last Admin Trade Name Ailyn PRN Reason Stop Dose Admin Aspirin 325 mg 09/12/16 09:00 09/12/16 08:39 Aspirin PO 325 mg DAILY MAGO Administration Atorvastatin Calcium 20 mg 09/12/16 21:00 Lipitor PO HS [facility] Calcium Carbonate/Glycine 500 mg 09/12/16 09:00 09/12/16 08:39 Tums PO 500 mg DAILY MAGO Administration Carbidopa/Levodopa 1 each 09/12/16 09:00 09/12/16 08:46 Sinemet 25-100 PO Not Given BID [facility] Donepezil HCl 10 mg 09/12/16 21:00 Aricept PO HS [facility] Multivitamins 1 each 09/12/16 09:00 09/12/16 08:39 Theragran PO 1 each DAILY [facility] Administration Oxybutynin Chloride 5 mg 09/12/16 09:00 09/12/16 08:39 Ditropan PO 5 mg BID [facility] Administration Triamterene/HCTZ 1 each 09/12/16 09:00 09/12/16 08:39 Maxzide-25 PO 1 each DAILY [facility] Administration Warfarin Sodium 6 mg 09/13/16 18:00 Coumadin PO [id number] [facility] Warfarin Sodium 3 mg 09/12/16 18:00 Coumadin PO [id number]@1800 [facility] Intake and Output 09/11/16 09/12/16 09/12/16 22:59 06:59 14:59 Intake Total 260 Output Total 300 Balance -300 260 Intake: IV 10 Invasive Line 1 10 Oral 250 Output: Urine 300 Other: Voiding Method Toilet Toilet Diaper Diaper # Voids 1 1 Weight 85.2 kg 84 kg 09/11/16 20:22 09/11/16 20:22 EKG Interpretations (text) EKG shows a normal sinus rhythm with nonspecific ST-T wave changes in the anterior lateral leads Assessment and Plan Plan: Assessment and plan #1 episode of diaphoresis with associated dizziness, nausea and vomiting, no clear-cut evidence of syncope. #2 systolic ejection murmur suggestive of moderate to severe aortic stenosis #3 hypertension #4 hyperkalemia #5 prior PE, on Coumadin, INR 3.0 #6 mild renal insufficiency, creatinine 1.3 #7 chest tightness, troponins 0.017, 0.012, 0.012. EKG shows normal sinus rhythm with nonspecific anterior lateral ST-T wave changes #8 hyperlipidemia #9 Parkinson's #10Hypothyroidism Plan We will obtain an echocardiogram with Doppler study. Echo orthostatic blood pressure and heart rate every shift. Continue to monitor for any tachycardia or bradycardia arrhythmias. We will decrease her aspirin 81 mg daily as she is on Coumadin. Further recommendations to follow. DNP note has been reviewed, I agree with a documented findings and plan of care. Patient was seen and examined.
[2016-09-12] MEDS ORDERED: WARFARIN 3 MG TAB PO SCH (18:00)
[2016-09-12] MEDS ORDERED: DONEPEZIL 10 MG TAB PO SCH (21:00)
[2016-09-12] MEDS ORDERED: ATORVASTATIN 20 MG TAB PO SCH (21:00)
[2016-09-12 21:02] LABS: Glucose,Whole Blood 92 mg/dL (75-99)
[2016-09-13 06:18] LABS: INR 2.4 (<1.1)
[2016-09-13] MEDS: MULTIVITAMINS, THERA 1 EACH TAB PO SCH (08:46)
[2016-09-13] MEDS: CARBIDOPA-LEVODOPA 25-100 MG 1 EACH TAB PO SCH (08:47)
[2016-09-13] MEDS: CALCIUM CARBONATE 500 MG CHEWABLE PO SCH (08:47)
[2016-09-13] MEDS: OXYBUTYNIN CHLORIDE 5 MG TAB PO SCH (08:47)
[2016-09-13] MEDS: TRIAMTERENE-HCTZ 37.5-25MG 1 EACH TAB PO SCH (08:48)
[2016-09-13] MEDS ORDERED: ASPIRIN 81 MG CHEW PO SCH (09:00)
--- NOTE | 2016-09-13 09:04 | HP ---
CHIEF COMPLAINT: Dizziness. HISTORY OF PRESENT ILLNESS: Ms. Easton is an 85-year-old female with a known history of Parkinson's disease, pulmonary embolism on anticoagulation with Coumadin and dementia came to the hospital with complaints of dizziness and light-headedness, which is getting worse since yesterday. Apparently, the patient has been having dizziness for a long time. Symptoms got severe last night and when she sat down to have her evening meal patient also became diaphoretic and profuse sweating at that time. The patient's daughter reports that she was also describing tightness in her chest, but the patient otherwise currently denied any complaints of chest pain. The patient's symptoms otherwise resolved and still having dizziness and patient came to the hospital for further evaluation. Currently, the patient denied any complaint of dizziness and wants to go home. Patient had a 2-D echocardiogram that showed moderate aortic stenosis. Cardiology evaluation is pending at this time. REVIEW OF SYSTEMS: CONSTITUTIONAL: No fever, no chills, no weakness. RESPIRATORY: No cough or sputum production. CARDIOVASCULAR: No chest pain. No palpitations. No leg swelling. ABDOMEN: No nausea, vomiting or abdominal pain. GENITOURINARY: No dysuria, no hematuria. NEUROLOGIC: No headache. The patient does have dizziness and lightheadedness. No numbness or tingling. No focal weakness. ENDOCRINE: Negative. PSYCHIATRY: Negative. MUSCULOSKELETAL: Negative. All other 14-point review of systems negative except the above. PAST MEDICAL HISTORY: Hypertension, hyperlipidemia, pulmonary embolism, history of breast cancer. PAST SURGICAL HISTORY: Breast surgery, cholecystectomy, thyroid cyst removal. SOCIAL HISTORY: Patient never a smoker. Denied any alcohol. Denied any drugs or IVDU. FAMILY HISTORY: Denied any history of hypertension, diabetes mellitus or premature heart disease in the family. ALLERGIES: No known drug allergies. HOME MEDICATIONS: 1. Carbidopa-levodopa, Sinemet. 2. Donepezil. 3. Oxybutynin. 4. Simvastatin. 5. Maxzide. 6. Warfarin. 7. Calcium carbonate. 8. Multivitamins. PHYSICAL EXAMINATION: An 85-year-old female lying in bed, awake, alert, oriented x3. No focal deficits. VITALS: Blood pressure is 152/65, pulse is 68, respirations 18, temperature afebrile, pulse ox 97% on room air. HEENT: Atraumatic, normocephalic. NECK: Supple. No JVD. CVS EXAM: S1 and S2 heard. Patient does have systolic murmur. No gallop, no rub. LUNGS: Bilateral air entry is present. No wheezing, no crackles. Nonlabored breathing. ABDOMEN: Soft, nontender. Bowel sounds are present. RECORDS AND TAPE RECORDINGS ENGINEER: Awake, alert, oriented x3. No focal deficits. EXTREMITIES: No edema. Pulses are palpable bilaterally. No clubbing or cyanosis. PSYCHIATRIC: Cooperative. LABORATORY DATA: WBC 10.1, hemoglobin 15.8, platelets 183. INR 3.0. D-dimer is 0.43. Sodium 139, potassium 5.2, chloride 105, bicarb is 22, BUN 29, creatinine 1.3. Blood sugar is 160. Total bilirubin is 1.6. AST is 52. LDL is 111. Troponin x3 negative. NT-proBNP is 257. Albumin 4.5. Chest x-ray pulmonary fibrotic changes, no acute lung disease. EKG sinus bradycardia. IMPRESSION: 1. Dizziness and light-headedness, most likely secondary to moderate aortic stenosis. 2. Chest pain, could be related to aortic stenosis, rule out acute coronary artery syndrome with serial EKGs and troponins negative. 3. Sinus bradycardia. 4. History of pulmonary embolism, currently on anticoagulation with Coumadin. D- dimer is not elevated at this time. 5. Mild hyperkalemia. 6. Parkinson's disease and dementia. 7. Hyperlipidemia with LDL level is 111. 8. Deep venous thrombosis prophylaxis. Patient is already on Coumadin subtherapeutic INR level. DISCUSSION AND PLAN: The patient will be continued on home medications and continue the aspirin and statins. Cardiology has been consulted for further evaluation for aortic stenosis and bradycardia. Will follow up closely. Continue with Coumadin monitoring. Further recommendations based on the clinical course. Patient wants to go home. [facility]
[2016-09-13 11:58] VITALS: BP 131/78; PULSE 61; RESP 18; TEMP 97.1
[2016-09-13 13:46] LABS: Basophils # (A) 0.1 k/uL (0-0.2); Basophils % (A) 1 %; CH 32.8; CHCM 33.6; Eosinophils # (A) 0.2 k/uL (0-0.7); Eosinophils % (A) 3 %; HCT 44.6 % (34.0-46.0); HDW 2.32; HGB 14.7 gm/dL (11.4-16.0); Luc # (Auto) 0.18; Luc % (Auto) 3; Lymphocytes # (A) 3.1 k/uL (1.0-4.8); Lymphocytes % (A) 43 %; MCH 32.4 pg (25.0-35.0); MCV 98.1 fL (80.0-100.0); Mean Platelet Volume 10.1; Monocytes # (A) 0.5 k/uL (0-1.0); Monocytes % (A) 8 %; Neutrophils # (A) 3.2 k/uL (1.3-7.7); Neutrophils % (A) 44 %; RBC 4.55 m/uL (3.80-5.40); RDW 13.7 % (11.5-15.5); WBC 7.3 k/uL (3.8-10.6); WBC (Perox) 7.02
[2016-09-13 13:59] LABS: Calcium 9.1 mg/dL (8.4-10.2); Potassium 3.9 mmol/L (3.5-5.1)
--- NOTE | 2016-09-13 15:37 | P.PN ---
Subjective Principal diagnosis: Syncope This is a 85-year-old female with history of hypertension, hyperlipidemia, Parkinson's, prior PE, on Coumadin who presented to the hospital with sudden onset of diaphoresis and associated dizziness. She was not found to have any significant orthostatic blood pressures, heart rate overall been stable. Echocardiogram with Doppler study reveals an ejection fraction of 55-60%. Moderate aortic stenosis. INR is 2.4 today. BUN 28, creatinine 1.2. Objective - Vital Signs Vital signs: Vital Signs Temp 97.1 F L 09/13/16 11:55 Pulse 61 09/13/16 11:55 Resp 18 09/13/16 11:55 BP 131/78 09/13/16 11:55 Pulse Ox 95 09/13/16 11:55 Intake & Output 09/12/16 09/13/16 09/13/16 18:59 06:59 18:59 Intake Total 810 250 Balance 810 250 Weight 84.6 kg Intake: IV 10 10 Invasive Line 1 10 Normal Saline 0.9 10 Oral 800 240 Other: Voiding Method Toilet Toilet Toilet Diaper Diaper Diaper # Voids 1 1 1 # Bowel Movements 1 0 - Exam PHYSICAL EXAMINATION: HEENT: Head is atraumatic, normocephalic. Pupils equal, round. Neck is supple. There is no elevated jugular venous pressure. HEART EXAMINATION: Heart S1, systolic ejection murmur suggestive of moderate to severe aortic stenosis is heard. CHEST EXAMINATION: Lungs are clear to auscultation and precussion. No chest wall tenderness is noted on palpation or with deep breathing. ABDOMEN: Soft, nontender. Bowel sounds are heard. No organomegaly noted. EXTREMITIES: 2+ peripheral pulses with no evidence of peripheral edema and no calf tenderness noted. NEUROLOGIC patient is awake, alert and oriented -3. - Labs CBC & Chem 7: 09/13/16 05:24 09/13/16 05:24 Labs: Abnormal Lab Results - Last 24 Hours (Table) 09/13/16 09/13/16 Range/Units 05:24 05:24 PT 23.0 H (9.0-12.0) sec Chloride 109 H (98-107) mmol/L BUN 28 H (7-17) mg/dL Creatinine 1.21 H (0.52-1.04) mg/dL Assessment and Plan Plan: Assessment and plan #1 episode of diaphoresis with associated dizziness, nausea and vomiting, no clear-cut evidence of syncope. #2 systolic ejection murmur suggestive of moderate to severe aortic stenosis Echo reveals moderate aortic stenosis. #3 hypertension #4 hyperkalemia #5 prior PE, on Coumadin, INR 3.0 #6 mild renal insufficiency, creatinine 1.3 #7 chest tightness, troponins 0.017, 0.012, 0.012. EKG shows normal sinus rhythm with nonspecific anterior lateral ST-T wave changes #8 hyperlipidemia #9 Parkinson's #10Hypothyroidism Plan Cardiology's perspective, patient may be able to be discharged home once cleared by the primary. She is not a candidate for any aortic valve surgery. We'll continue current medications. DNP note has been reviewed, I agree with a documented findings and plan of care. Patient was seen and examined.
[2016-09-13] MEDS ORDERED: WARFARIN 3 MG TAB PO SCH (18:00)
== END 2016-09-13 16:18 | disposition home or self-care (01) | DRG 307 ==
LOC: EC 19:57 → 6SEL 21:45
PROVIDERS: ADMIT Internal Medicine; ATTEND Internal Medicine
DX: I35.0 Nonrheumatic aortic (valve) stenosis (principal); G20 Parkinson's disease; F03.90 Unspecified dementia, unspecified severity, without behavioral disturbance, psychotic disturbance, mood disturbance, and anxiety; R00.1 Bradycardia, unspecified; E87.5 Hyperkalemia; N28.9 Disorder of kidney and ureter, unspecified; R07.9 Chest pain, unspecified; R11.2 Nausea with vomiting, unspecified; R07.89 Other chest pain; I44.4 Left anterior fascicular block; E03.9 Hypothyroidism, unspecified; I10 Essential (primary) hypertension; E78.5 Hyperlipidemia, unspecified; Z86.711 Personal history of pulmonary embolism; Z79.01 Long term (current) use of anticoagulants; Z85.3 Personal history of malignant neoplasm of breast; Z79.899 Other long term (current) drug therapy; Z90.49 Acquired absence of other specified parts of digestive tract; Z90.12 Acquired absence of left breast and nipple
CPT/HCPCS: 36415; 71010; 80048; 80053; 80061; 82550; 82553; 83735; 83880; 84484; 85025; 85379; 85610; 85730; 93005; 93306; 99285

== ENCOUNTER → 2017-03-27 | Outpatient (CLI) | payer MEDICARE, BC ==
--- NOTE | 2017-03-27 09:12 | US ---
EXAMINATION TYPE: US pelvic complete DATE OF EXAM: 03/27/2017 COMPARISON: CT 09/17/2015 CLINICAL HISTORY: R10.9 ABD PAIN. Difficult exam due to overlying bowel gas and patient age-unable to fully fill bladder. TECHNIQUE: Transabdominal (TA) Date of LMP: About 35 years ago EXAM MEASUREMENTS: Uterus: 4.2 x 2.0 x 2.7 cm Endometrial Stripe: 0.2 cm Right Ovary: Not visualized on this exam Left Ovary: Not visualized on this exam 1. Uterus: Anteverted Atrophic 2. Endometrium: wnl as visualized 3. Right Ovary: Obscured by overlying bowel gas 4. Left Ovary: Obscured by overlying bowel gas 5. Bilateral Adnexa: wnl 6. Posterior cul-de-sac: wnl IMPRESSION: 1. No acute process
--- NOTE | 2017-03-27 09:44 | US ---
EXAMINATION TYPE: US abdomen complete DATE OF EXAM: 03/27/2017 COMPARISON: CT 09/17/2015 CLINICAL HISTORY: R10.9 ABD PAIN. Abdominal pain. Difficult and limited exam due to overlying bowel g as EXAM MEASUREMENTS: Liver Length: 13.2 cm Gallbladder Wall: Surgically absent CBD: 0.8 cm Spleen: 8.0 cm Right Kidney: 10.0 x 4.6 x 3.9 cm Left Kidney: 9.8 x 4.6 x 4.1 cm Pancreas: Obscured by bowel gas Liver: wnl as visualized, limited visualization due to overlying bowel gas Gallbladder: Surgically absent Evidence for sonographic Lancaster's sign: No CBD: wnl Spleen: wnl Right Kidney: Multiple hypoechoic areas visualized medially, possible cysts. Largest measuring 1.1 x 0.8 x 1.7 cm Left Kidney: Hypoechoic area visualized mid pole measuring 1.4 x 1.3 x 1.5 cm, possible cyst Upper IVC: wnl Abd Aorta: Atherosclerotic changes IMPRESSION: 1. Nondiagnostic assessment of the pancreas. 2. Postcholecystectomy. 3. Bilateral hypoechoic lesions within the kidneys which are too small to characterize. Do not meet the criteria of a simple cyst by ultrasound which likely is technical.
== END | disposition home or self-care (01) ==
LOC: RADUSWWP 08:20
PROVIDERS: ATTEND Family Medicine
DX: N28.9 Disorder of kidney and ureter, unspecified (principal); Z90.49 Acquired absence of other specified parts of digestive tract
CPT/HCPCS: 76700; 76856

== ENCOUNTER 2017-06-23 12:56 | Inpatient (IN) | payer MEDICARE, BC ==
[2017-06-23] MEDS ORDERED: MORPHINE SULFATE 4MG/4ML SYRG IVP STA (13:26)
--- NOTE | 2017-06-23 13:29 | ED ---
General Adult HPI - General Chief complaint: Fall Stated complaint: fall Time Seen by Provider: 06/23/17 12:58 Source: patient, EMS, RN notes reviewed Mode of arrival: EMS Limitations: physical limitation - History of Present Illness Initial comments: Patient 86-year-old female presented emergency room today with a chief complaint of fall that occurred just prior to arrival. Patient states that she was trying to adjust something with her walker and she lost her balance falling down to the left side. She does not that she is on a blood thinner Coumadin. Patient states it was no known head injury or loss conscious. Patient does note some pain to the left hip. She states worse with movements. Patient denies any other injury or complaint currently. Currently rates pain 8/10. Patient denies any recent fever, chills, shortness of breath, chest pain, abdominal pain, nausea or vomiting, numbness or tingling, dysuria or hematuria, constipation or diarrhea, headaches or visual changes, or any other complaints. - Related Data Home Medications Medication Instructions Recorded Confirmed Carbidopa-Levodopa 25-100 mg 1 tab PO BID 10/05/14 06/23/17 [Sinemet 25-100 mg] Donepezil HCl [Aricept] 10 mg PO HS 10/05/14 06/23/17 Oxybutynin Chloride [Ditropan] 5 mg PO BID 10/05/14 06/23/17 Simvastatin [Zocor] 40 mg PO HS 10/05/14 06/23/17 Triamterene-Hctz 37.5-25Mg 1 tab PO DAILY 10/05/14 06/23/17 [Maxzide 37.5-25] Warfarin Sodium 6 mg PO SUMOWEFR 10/05/14 06/23/17 Calcium Carbonate [Calcium] 600 mg PO DAILY 07/08/15 06/23/17 Multivitamins, Thera [Multivitamin 1 tab PO DAILY 07/08/15 06/23/17 (formulary)] Warfarin Sodium 3 mg PO TUTHSA 07/08/15 06/23/17 Allergies Allergy/AdvReac Type Severity Reaction Status Date / Time No Known Allergies Allergy Verified 06/23/17 14:08 Review of Systems ROS Statement: Those systems with pertinent positive or pertinent negative responses have been documented in the HPI. ROS Other: All systems not noted in ROS Statement are negative. Past Medical History Past Medical History: Cancer, Hyperlipidemia, Hypertension, Pulmonary Embolus ( PE) Additional Past Medical History / Comment(s): breast ca w/ L masectomy History of Any Multi-Drug Resistant Organisms: None Reported Past Surgical History: Breast Surgery, Cholecystectomy Additional Past Surgical History / Comment(s): thyroid cyst Past Anesthesia/Blood Transfusion Reactions: No Reported Reaction Past Psychological History: No Psychological Hx Reported Smoking Status: Never smoker Past Alcohol Use History: None Reported Past Drug Use History: None Reported General Exam - General Exam Comments Initial Comments: General: The patient is awake and alert, in no distress, and does not appear acutely ill. Eye: Pupils are equal, round and reactive to light, extra-ocular movements are intact. No nystagmus. There is normal conjunctiva bilaterally. No signs of icterus. Ears, nose, mouth and throat: There are moist mucous membranes and no oral lesions. Neck: The neck is supple, there is no tenderness or JVD. Cardiovascular: There is a regular rate and rhythm. No murmur, rub or gallop is appreciated. Respiratory: Lungs are clear to auscultation, respirations are non-labored, breath sounds are equal. No wheezes, stridor, rales, or rhonchi. Musculoskeletal: Patient does have tenderness over the left hip exam. Worse with logroll maneuver. Sensation intact. Pulses equal bilaterally 2+. Neurological: A&O x 3. CN II-XII intact, There are no obvious motor or sensory deficits. Coordination appears grossly intact. Speech is normal. Skin: Skin is warm and dry and no rashes or lesions are noted. Psychiatric: Cooperative, appropriate mood & affect, normal judgment. Limitations: physical limitation Course Vital Signs 06/23/17 13:05 Temperature 98.0 F Pulse Rate 84 Respiratory 20 Rate Blood Pressure 132/67 O2 Sat by Pulse 98 Oximetry Medical Decision Making - Medical Decision Making Patient labs been reviewed. INR 4.9. Sensations x-ray of the left hip does show [address] of the head and neck are negative. Case discussed with orthopedic physician office clerk assistant Cam Uribe who will accept admission for Dr. Zambrano. Patient will be admitted with consult to medicine. - Lab Data Result diagrams: 06/23/17 15:08 Lab Results 06/23/17 06/23/17 06/23/17 Range/Units 12:17 15:08 15:28 WBC 12.5 H (3.8-10.6) k/uL RBC 4.95 (3.80-5.40) m/uL Hgb 16.0 (11.4-16.0) gm/dL Hct 46.1 H (34.0-46.0) % MCV 93.3 (80.0-100.0) fL MCH 32.3 (25.0-35.0) pg MCHC 34.6 (31.0-37.0) g/dL RDW 12.5 (11.5-15.5) % Plt Count 156 (150-450) k/uL Neutrophils % 78 % Lymphocytes % 16 % Monocytes % 5 % Eosinophils % 0 % Basophils % 0 % Neutrophils # 9.7 H (1.3-7.7) k/uL Lymphocytes # 1.9 (1.0-4.8) k/uL Monocytes # 0.7 (0-1.0) k/uL Eosinophils # 0.1 (0-0.7) k/uL Basophils # 0.0 (0-0.2) k/uL PT 44.2 H (9.0-12.0) sec INR 4.9 H (<1.2) APTT 32.7 H (22.0-30.0) sec Urine Color Yellow Urine Appearance Cloudy H (Clear) Urine pH 6.5 (5.0-8.0) Ur Specific [place] 1.011 (1.001-1.035) Urine Protein Trace H (Negative) Urine Glucose (UA) Negative (Negative) Urine Ketones Negative (Negative) Urine Blood Negative (Negative) Urine Nitrite Negative (Negative) Urine Bilirubin Negative (Negative) Urine Urobilinogen <2.0 (<2.0) mg/dL Ur Leukocyte Esterase Negative (Negative) Urine RBC 1 (0-5) /hpf Urine WBC 1 (0-5) /hpf Ur Squamous Epith Cells 1 (0-4) /hpf Amorphous Sediment Rare H (None) /hpf Urine Mucus Rare H (None) /hpf Disposition Clinical Impression: Hip fracture, Elevated INR Disposition: ADMITTED IP TO THIS [facility] Condition: Good Referrals: Rodriguez Deutsch MD [Primary Care Provider] - 1-2 days Time of Disposition: 16:05
[2017-06-23 14:09] LABS: Amorphous Sediment,Urine Rare /hpf; Appearance,Urine Cloudy (Clear); Bilirubin,Urine Negative (Negative); Blood,Urine Negative (Negative); Color,Urine Yellow; Glucose,Urine (UA) Negative (Negative); Ketones,Urine Negative (Negative); Leukocyte Esterase,Urine Negative (Negative); Mucus,Urine Rare /hpf; Nitrite,Urine Negative (Negative); PH, Urine 6.5 (5.0-8.0); Protein,Urine Trace (Negative); RBC,Urine 1 /hpf (0-5); Specific Gravity,Urine 1.011 (1.001-1.035); Squamous Epithelial Cell,Urine 1 /hpf (0-4); Urobilinogen,Urine <2.0 mg/dL (<2.0); WBC,Urine 1 /hpf (0-5)
--- NOTE | 2017-06-23 14:36 | XR ---
EXAMINATION TYPE: XR Hip LT and AP Pelvis, XR femur LT DATE OF EXAM: 06/23/2017 COMPARISON: NONE HISTORY: Following treatment today with pelvic and left hip and femur pain TECHNIQUE: A single AP view of the pelvis is obtained. Two views of the left hip and femur are obtain ed. FINDINGS: Osseous structures are demineralized. There is acute intertrochanteric fracture of left pro ximal femur with large fracture fragment involving the lesser trochanter identified. There is backgro und moderate axial joint space loss left hip with severe acetabular spurring. No hip joint dislocatio n is seen. There is partial visualization of metallic hardware right hip. Scattered pelvic phlebolith s are seen. Sacroiliac joints are maintained. Images of femur show no additional distal fracture. There is moderate tricompartment joint space loss in the visualized left knee. Overlying soft tissue is unremarkable. IMPRESSION: There is acute intertrochanteric fracture of left proximal femur. (Initial encounter closed type posttraumatic fracture)
--- NOTE | 2017-06-23 15:06 | CT ---
EXAMINATION TYPE: CT brain cspine wo con DATE OF EXAM: 06/23/2017 COMPARISON: CT brain and cervical spine April 29, 2016. HISTORY: Fall injury with headache and neck pain. CT DLP: 1757.6 mGycm. Automated Exposure Control for Dose Reduction was Utilized. TECHNIQUE: CT scan of the head and cervical spine are performed without contrast. FINDINGS: There is no acute intracranial hemorrhage or midline shift identified. There is ventricul ar and sulcal prominence consistent with diffuse cerebral atrophy. There is low-attenuation in perive ntricular white matter redemonstrated. The calvarium is intact. There are scleral calcification both globes redemonstrated. Visualized sinuses are clear. Cervical spine is visualized in its entirety from C1 through upper thoracic levels and redemonstrates straightened alignment without evidence of acute fracture or dislocation. Prevertebral soft tissue appears within normal limits. The C1-C2 articulation is within normal limits on the coronal images. Vertebral body heights are maintained. There is mild disc space narrowing C3-C4 level. There is moder ate disc space narrowing and spurring C5-C6 and C6-C7 levels. Spinal canal is preserved. Review of ax ial images shows vertebral facet degenerative changes bilaterally at multiple levels most prominent l eft C3-C4 and right C4-C5 level. Left thyroid lobe is not visualized and may be surgically absent. Rosales bcentimeter nodule right thyroid lobe are present. There is moderate biapical pleural/parenchymal sca rring redemonstrated. IMPRESSION: 1. There is no acute fracture or dislocation evident in the cervical spine. 2. No acute intracranial hemorrhage or midline shift is seen. No significant change from prior.
--- NOTE | 2017-06-23 15:32 | XR ---
EXAMINATION TYPE: XR chest 1V portable DATE OF EXAM: 06/23/2017 COMPARISON: Chest x-ray September 11, 2016 HISTORY: Following injury with chest pain. TECHNIQUE: Single AP portable frontal supine view of the chest is obtained. FINDINGS: There is chronic parenchymal change without suspicious lesions focal air space opacity, pl eural effusion, or pneumothorax seen. The cardiac silhouette size is stable and upper limits of norm al with ectatic and atherosclerotic aorta redemonstrated. The osseous structures remain demineraliz ed. Degenerative change bilateral shoulders is again seen. Left axillary surgical clips are again see n. IMPRESSION: Chronic changes without acute pulmonary process.
[2017-06-23 15:40] LABS: Basophils % (A) 0 %; Eosinophils # (A) 0.1 k/uL (0-0.7); Eosinophils % (A) 0 %; HCT 46.1 % (34.0-46.0); Lymphocytes # (A) 1.9 k/uL (1.0-4.8); Lymphocytes % (A) 16 %; MCH 32.3 pg (25.0-35.0); MCHC 34.6 g/dL (31.0-37.0); MCV 93.3 fL (80.0-100.0); Mean Platelet Volume 10.4; Monocytes # (A) 0.7 k/uL (0-1.0); Monocytes % (A) 5 %; Neutrophils # (A) 9.7 k/uL (1.3-7.7); Neutrophils % (A) 78 %; Platelet Count 156 k/uL (150-450); RBC 4.95 m/uL (3.80-5.40); RDW 12.5 % (11.5-15.5); WBC 12.5 k/uL (3.8-10.6)
[2017-06-23 15:45] LABS: INR 4.9 (<1.2); Partial Thromboplastin Time 32.7 sec (22.0-30.0); Prothrombin Time 44.2 sec (9.0-12.0)
[2017-06-23] MEDS ORDERED: MORPHINE SULFATE 4MG/4ML SYRG IV STA (15:51)
[2017-06-23] MEDS ORDERED: ONDANSETRON 4 MG/2 ML VIAL IVP PRN (16:07)
[2017-06-23] MEDS ORDERED: NALOXONE 0.4 MG/ML 1 ML VIAL IV PRN (16:07)
[2017-06-23] MEDS ORDERED: SODIUM CHLORIDE 0.9% 1,000 ML IV ONE (16:07)
[2017-06-23 17:56] LABS: Albumin 3.6 g/dL (3.5-5.0); Calcium 10.7 mg/dL (8.4-10.2); Potassium 3.3 mmol/L (3.5-5.1); Total Bilirubin 1.2 mg/dL (0.2-1.3); Total Protein 6.4 g/dL (6.3-8.2)
[2017-06-23] MEDS: ATORVASTATIN 20 MG TAB PO SCH (20:20)
[2017-06-23] MEDS: DONEPEZIL 10 MG TAB PO SCH (20:20)
[2017-06-23] MEDS: OXYBUTYNIN CHLORIDE 5 MG TAB PO SCH (20:20)
[2017-06-23] MEDS: CARBIDOPA-LEVODOPA 25-100 MG 1 EACH TAB PO SCH (20:20)
[2017-06-23] MEDS ORDERED: PHYTONADIONE ORAL 5 MG/5 ML ORAL.SYRG PO STA (21:42)
--- NOTE | 2017-06-23 23:57 | CONS ---
CONSULTATION DATE OF CONSULTATION: 06/23/2017 REASON FOR CONSULTATION: Medical management requested by requested by Dr. Zambrano. CONSULTATION: This is a pleasant 86-year-old patient whose daughter is at the bedside giving the history. The patient follows with Dr. Deutsch. Lives by herself, has a walker. Daughter does take her out for grocery and patient does cook her own meals. The patient took a misstep and fell, fracturing a left femur. The patient's chronic stable medical conditions include Parkinson disease, urinary incontinence, dementia, PE about a year ago for which patient is on Coumadin, and osteoporosis. The patient normally uses a walker. Denies any cardiac history. Denies any chest pain or shortness of breath. The patient is able to answer simple questions. The patient is on Coumadin and INR was 4.9 in the ER. REVIEW OF SYSTEMS: CONSTITUTIONAL: Tired. HEENT: Decreased hearing. RESPIRATORY: None. CARDIOVASCULAR: None. GASTROINTESTINAL: None. GENITOURINARY: Urinary incontinence. DERMATOLOGICAL: Some bruising. HEMATOLOGICAL: None. LYMPHATICS: None. PSYCHIATRY: Forgetful. NEUROLOGICAL: Uses a walker. Patient has tremors. PAST MEDICAL HISTORY: Parkinson disease, dementia, urinary incontinence, pulmonary embolism on Coumadin, osteoporosis, breast cancer with left mastectomy, mini-stroke per the family. PAST SURGICAL HISTORY: Breast surgery, cholecystectomy, joint replacement, thyroid cyst, right hip replacement. SOCIAL HISTORY: No smoking. No alcohol. Lives alone. FAMILY HISTORY: Patient cannot tell. HOME MEDICATIONS: 1. Coumadin 3 mg on Sunday, , Sunday, 6 mg on other days. 2. Maxzide 37.5/25 1 tablet p.o. daily. 3. Zocor 40 mg q.h.s. 4. Ditropan 5 mg p.o. b.i.d. 5. Multivitamin 1 tablet p.o. daily. 6. Aricept 10 mg q.h.s. 7. Sinemet 1 tablet p.o. b.i.d. 8. Calcium 600 mg p.o. daily. ALLERGIES: None. EXAMINATION: Temperature 97.9, pulse 100, respirations 17, blood pressure 123/72, pulse ox 96% on room air. GENERAL APPEARANCE: Average-built, sitting up, tired-appearing. EYES: Pupils equal. Conjunctivae normal. HEENT: External nose and ears normal. Oral cavity normal. Decreased hearing. NECK: JVD unable to assess. Mass not palpable. RESPIRATORY: Effort normal. LUNGS: Diminished breath sounds. CARDIOVASCULAR: First and second sounds normal. No edema. ABDOMEN: Soft, nontender. Liver and spleen not palpable. LYMPHATIC: No lymph nodes palpable in neck or axillae. PSYCHIATRY: Patient is able to answer simple questions. 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 Limited range of motion of the left hip. NEUROLOGICAL: Patient has tremors. INVESTIGATIONS: White count 12.5, INR 4.9. Potassium 3.3, BUN 36, creatinine 1.69. The patient's creatinine was 1.21 back in August of 2016. EKG shows some PVCs. Femur x-ray: Left proximal femur fracture. ASSESSMENT: 1. Left proximal femur intertrochanteric fracture secondary to mechanical fall. 2. Parkinson disease. 3. Dementia associated with Parkinson disease. 4. Chronic urinary incontinence. 5. Chronic pulmonary embolism for which patient is on Coumadin. 6. Moderate aortic stenosis per prior echocardiogram from last year. 7. Osteoporosis. 8. Chronic gait dysfunction, uses a walker. PLAN: Will give the patient 2.5 mg of vitamin K so that INR can come down. Should come to around below 1.7 before reasonable for surgery to proceed. The patient has multiple medical problems and is a high risk for any complication, including infections given her age and comorbidities. As the patient has no active cardiac issues or active cardiac symptoms to limit the surgery, the risk was discussed with the patient's daughter the bedside, who accepts the risk for the surgery. Other home medications to continue. If any recent INR comes down significantly and surgery is postponed in that case, the patient will have to be bridged with IV heparin, stopping the heparin the evening before surgery. Thank you, Dr. Zambrano. SARAH / NEGINN: [id number] /
[2017-06-24] MEDS: MORPHINE ORAL SOLN 10 MG/5 ML CUP PO PRN ×5 (02:10→21:40)
[2017-06-24] MEDS: CARBIDOPA-LEVODOPA 25-100 MG 1 EACH TAB PO SCH ×2 (07:22→21:18)
[2017-06-24] MEDS: OXYBUTYNIN CHLORIDE 5 MG TAB PO SCH ×2 (07:23→21:18)
[2017-06-24 08:12] LABS: Basophils % (A) 0 %; Eosinophils # (A) 0.1 k/uL (0-0.7); Eosinophils % (A) 1 %; HCT 36.7 % (34.0-46.0); Lymphocytes # (A) 2.2 k/uL (1.0-4.8); Lymphocytes % (A) 26 %; MCHC 34.1 g/dL (31.0-37.0); MCV 93.7 fL (80.0-100.0); Mean Platelet Volume 9.1; Monocytes # (A) 0.6 k/uL (0-1.0); Monocytes % (A) 8 %; Neutrophils # (A) 5.2 k/uL (1.3-7.7); Neutrophils % (A) 62 %; Platelet Count 147 k/uL (150-450); RBC 3.91 m/uL (3.80-5.40); RDW 12.4 % (11.5-15.5); WBC 8.3 k/uL (3.8-10.6)
[2017-06-24 08:15] LABS: HGB 12.5 gm/dL (11.4-16.0)
[2017-06-24 08:26] LABS: Prothrombin Time 50.7 sec (9.0-12.0)
[2017-06-24 08:31] LABS: INR 5.6 (<1.2)
[2017-06-24 08:45] LABS: Potassium 3.4 mmol/L (3.5-5.1); Total Bilirubin 1.6 mg/dL (0.2-1.3); Total Protein 5.5 g/dL (6.3-8.2)
--- NOTE | 2017-06-24 11:09 | P.CNOR ---
History of Present Illness - [facility] Consult date: 06/24/17 Consult reason: fracture (Left hip fracture) History of present illness: Patient is very pleasant 86-year-old female who was seen and examined today at bedside in regards to a left hip fracture. Patient presented to the emergency after sustaining a fall at home. Apparently she was trying to fix some of the adhesive on her dentures and tripped and fell in her bathroom and fell onto her left side. She denies any loss of consciousness or head injury. She denies any chest pain or shortness of breath. She was unable to get up because of her left lower extremity was in significant pain. She has increased pain with any sort of motion at her left hip or left side. She denies any prior problems with her left hip or leg. She has history of right hip replacement with Dr. Nicholson a few years ago. She says that hip is doing okay. She denies any changes in her speech or mentation. She denies any headaches or visual complaints. She says she lives alone but has help with from her son. Review of Systems She typically ambulate with a walker. She lives at home with some home from her son. She denies any chest pain shortness breath. She denies any fevers chills or night sweats. She denies any prior problems with her left hip or leg. Past Medical History Past Medical History: Cancer, Hyperlipidemia, Hypertension, Musculoskeletal Disorder (History of right hip total hip replacement with Dr. Nicholson 2 or 3 years ago), Pulmonary Embolus (PE) Additional Past Medical History / Comment(s): breast ca w/ L masectomy; "Mini strokes" per family History of Any Multi-Drug Resistant Organisms: None Reported Past Surgical History: Breast Surgery, Cholecystectomy, Joint Replacement, Orthopedic Surgery Additional Past Surgical History / Comment(s): thyroid cyst; Right hip replacement Past Anesthesia/Blood Transfusion Reactions: No Reported Reaction Additional Psychological History / Comment(s): Dementia possible Alzheimers Smoking Status: Never smoker Past Alcohol Use History: None Reported Past Drug Use History: None Reported Medications and Allergies Home Medications Medication Instructions Recorded Confirmed Type Carbidopa-Levodopa 25-100 mg 1 tab PO BID 10/05/14 06/23/17 History [Sinemet 25-100 mg] Donepezil HCl [Aricept] 10 mg PO HS 10/05/14 06/23/17 History Oxybutynin Chloride [Ditropan] 5 mg PO BID 10/05/14 06/23/17 History Simvastatin [Zocor] 40 mg PO HS 10/05/14 06/23/17 History Triamterene-Hctz 37.5-25Mg 1 tab PO DAILY 10/05/14 06/23/17 History [Maxzide 37.5-25] Warfarin Sodium 6 mg PO SUMOWEFR 10/05/14 06/23/17 History Calcium Carbonate [Calcium] 600 mg PO DAILY 07/08/15 06/23/17 History Multivitamins, Thera [Multivitamin 1 tab PO DAILY 07/08/15 06/23/17 History (formulary)] Warfarin Sodium 3 mg PO TUTHSA 07/08/15 06/23/17 History Allergies Allergy/AdvReac Type Severity Reaction Status Date / Time No Known Allergies Allergy Verified 06/23/17 14:08 Physical Examination Osteopathic Statement: *. No significant issues noted on an osteopathic structural exam other than those noted in the History and Physical/Consult. - Hip left Gait: other (The patient has significant pain with any motion of her left hip. There is pain with internal/external rotation at her left hip. She is unable to the leg up off the bed. Her thigh and calf are soft. She has sustained dorsal flexion plantarflexion her ankle foot and toes. Sensory is intact in her lower extremity is. Her right lower extremity is nontender to palpation or range of motion. She has sustained dorsal flexion at the right. Her abdomen soft nontender. Chest has good excursion deep inspection expiration. Her neck is nontender to palpation range motion. Her upper extremities have adequate range of motion throughout.) Results - Labs Labs: Abnormal Lab Results - Last 24 Hours (Table) 06/23/17 06/23/17 06/23/17 Range/Units 12:17 15:08 15:28 WBC 12.5 H (3.8-10.6) k/uL Hct 46.1 H (34.0-46.0) % Plt Count (150-450) k/uL Neutrophils # 9.7 H (1.3-7.7) k/uL PT 44.2 H (9.0-12.0) sec INR 4.9 H (<1.2) APTT 32.7 H (22.0-30.0) sec Potassium (3.5-5.1) mmol/L BUN (7-17) mg/dL Creatinine (0.52-1.04) mg/dL Glucose (74-99) mg/dL Calcium (8.4-10.2) mg/dL Total Bilirubin (0.2-1.3) mg/dL AST (14-36) U/L Total Protein (6.3-8.2) g/dL Albumin (3.5-5.0) g/dL Urine Appearance Cloudy H (Clear) Urine Protein Trace H (Negative) Amorphous Sediment Rare H (None) /hpf Urine Mucus Rare H (None) /hpf 06/23/17 06/24/17 06/24/17 Range/Units 17:32 07:56 07:56 WBC (3.8-10.6) k/uL Hct (34.0-46.0) % Plt Count 147 L (150-450) k/uL Neutrophils # (1.3-7.7) k/uL PT 50.7 H (9.0-12.0) sec INR 5.6 H* (<1.2) APTT (22.0-30.0) sec Potassium 3.3 L (3.5-5.1) mmol/L BUN 36 H (7-17) mg/dL Creatinine 1.60 H (0.52-1.04) mg/dL Glucose 154 H (74-99) mg/dL Calcium 10.7 H (8.4-10.2) mg/dL Total Bilirubin (0.2-1.3) mg/dL AST 86 H (14-36) U/L Total Protein (6.3-8.2) g/dL Albumin (3.5-5.0) g/dL Urine Appearance (Clear) Urine Protein (Negative) Amorphous Sediment (None) /hpf Urine Mucus (None) /hpf 06/24/17 Range/Units 07:56 WBC (3.8-10.6) k/uL Hct (34.0-46.0) % Plt Count (150-450) k/uL Neutrophils # (1.3-7.7) k/uL PT (9.0-12.0) sec INR (<1.2) APTT (22.0-30.0) sec Potassium 3.4 L (3.5-5.1) mmol/L BUN 30 H (7-17) mg/dL Creatinine 1.37 H (0.52-1.04) mg/dL Glucose 130 H (74-99) mg/dL Calcium (8.4-10.2) mg/dL Total Bilirubin 1.6 H (0.2-1.3) mg/dL AST 412 H (14-36) U/L Total Protein 5.5 L (6.3-8.2) g/dL Albumin 3.0 L (3.5-5.0) g/dL Urine Appearance (Clear) Urine Protein (Negative) Amorphous Sediment (None) /hpf Urine Mucus (None) /hpf H & H 06/23/17 06/24/17 Range/Units 15:08 07:56 Hgb 16.0 12.5 D (11.4-16.0) gm/dL Hct 46.1 H 36.7 (34.0-46.0) % Coagulation 06/23/17 06/24/17 Range/Units 15:28 07:56 INR 4.9 H 5.6 H* (<1.2) Result Diagrams: 06/24/17 07:56 06/24/17 07:56 - Diagnostic results Hip x-ray: report reviewed, image reviewed (X-rays of the pelvis and left hip are reviewed area she has a right total hip replacement which appears to be stable and intact. On the left side there is a intertrochanteric left femur fracture with three-part fracture. There is some displacement. Her bones are osteopenic.) Assessment and Plan Assessment: Acute left hip intertrochanteric femur fracture status post fall Inability to ambulate due to fracture History of right total hip replacement which is stable On blood thinners with elevated INR Plan: Acute left hip intertrochanteric femur fracture status post fall Inability to ambulate due to fracture History of right total hip replacement which is stable On blood thinners with elevated INR The patient has acute left hip fracture due to her fall. I think that the best course of treatment for her would be to pursue surgical intervention for internal fixation of the left hip with intramedullary hip screw. This will allow her the earliest chance of mobilization and an ablation with healing at the hip to restore her ability to mobilize and ambulate. We discussed the nature of her injury with her at length. We discussed the risk, patient's alternatives and benefits of surgery. We discussed the risks of surgery including but not limited to the risk of bleeding risk of infection risk of need for further surgery risk of decreased loss of motion loss of function malunion nonunion hardware failure nerve damage as well as the fact that she may not be able to ambulate to her degree that she is accustomed to determine entry. We answered all of her questions best my ability and she is interested in proceeding with surgical intervention and will sign informed consent. The patient is on Coumadin with her INR around 5. Certainly we need this to return to more normal level to decrease risks of surgery. Hopefully the coagulation will normalize further and she will be able to have surgical intervention tomorrow with intramedullary hip screw in the operating room. Her Coumadin has been held and we will follow her INR closely. Currently the patient is on bedrest due to her fracture. She has a Johnston intact and we will make her nothing by mouth after midnight for possible surgery tomorrow pending medical clearance and further normalization of her coagulation labs.
[2017-06-24] MEDS ORDERED: PHYTONADIONE ORAL 5 MG/5 ML ORAL.SYRG PO STA (12:53)
--- NOTE | 2017-06-24 14:25 | PN ---
PROGRESS NOTE DATE OF SERVICE: 06/24/17. PRESENTING COMPLAINT: Femur fracture. INTERVAL HISTORY: This patient who is on Coumadin presented with femur fracture. Did receive Coumadin 2.5 last night. Had some pain in the joint. Lying in bed. No chest pain. REVIEW OF SYSTEMS: Done for constitutional, cardiovascular, GI, pulmonary; relevant findings as above. CURRENT MEDICATIONS: Reviewed. EXAMINATION: Temperature 98.7, pulse 96, respirations 17, blood pressure 130/82, pulse ox 96% on room air. GENERAL APPEARANCE: Lying in bed, awake. EYES: Pupils equal. Conjunctivae normal. HEENT: External appearance nose and ears normal. Oral cavity normal. Decreased hearing. NECK: JVD not raised. Mass not palpable. RESPIRATORY: Effort, lungs decreased breath sounds. CARDIOVASCULAR: First and second sounds, no edema. ABDOMEN: Soft, nontender. Liver and spleen not palpable. PSYCHIATRY: Awake, answering simple questions. EXTREMITIES: Limited range of motion of the left hip. INVESTIGATIONS: White count 8.3, INR 5.6, potassium 3.4, BUN 30, creatinine 1.37. ASSESSMENT: 1. Left proximal femur IT fracture secondary to mechanical fall. 2. Parkinson disease. 3. Dementia associated with Parkinson disease. 4. Chronic urinary incontinence. 5. Chronic pulmonary embolism for which patient is on Coumadin. 6. Moderate aortic stenosis, nonrheumatic. 7. Osteoporosis. 8. Chronic gait dysfunction uses a walker at baseline. 9. Coumadin monitoring. PLAN: Patient did get 2.5 Coumadin last night. The patient's INR was higher today likely from the dose he received the night before. We will give 2 more mg of vitamin K. Of course Coumadin continues to be held. I expected to be down by tomorrow morning. Currently no indication for FFP currently. Thank you, Dr. Zambrano. MMODL / IJN: [id number] /
[2017-06-24] MEDS: DONEPEZIL 10 MG TAB PO SCH (21:18)
[2017-06-24] MEDS: ATORVASTATIN 20 MG TAB PO SCH (21:18)
[2017-06-25] MEDS: OXYBUTYNIN CHLORIDE 5 MG TAB PO SCH ×2 (08:13→23:45)
[2017-06-25] MEDS: CARBIDOPA-LEVODOPA 25-100 MG 1 EACH TAB PO SCH ×2 (08:13→23:57)
--- NOTE | 2017-06-25 08:46 | P.HPOR ---
History of Present Illness H&P Date: 06/25/17 Chief Complaint: Left hip pain status post fall Patient is a very pleasant 86-year-old female who is seen and examined at bedside with her family present for follow-up and further evaluation for her left intertrochanteric hip fracture status post fall. Patient has not had any change since being seen and examined yesterday. Patient states she lives with her son and uses a wheeled walker to aid in ambulation. She states she was placing some Fix-a-dent on her teeth when she turned losing her balance and falling on her left side on 06/23/2017. She has had significant left hip pain since that time has been unable to ambulate. She's been on bed rest and nonweightbearing on the left lower extremity. A Johnston catheter is intact. She continues to have significant pain at the left hip. She is not complaining of right hip pain. She does have a history of right total hip arthroplasty previously performed by Dr. Nicholson. Patient does have a history of chronic pulmonary embolism and is on Coumadin. Her Coumadin is currently being held. We are currently waiting for her INR level to reduce to a therapeutic level while we are able to proceed for surgical intervention. Her INR was 4.9 on 09/2017 and increased to 5.6 on 06/24/2017. We are currently waiting for new lab results morning. Patient not had any significant changes compared to yesterday. She is currently nothing by mouth status in anticipation for surgical intervention. Patient continues to be seen and examined by medicine who has prescribed vitamin K to help reduce her INR level. Past Medical History Past Medical History: Cancer, Hyperlipidemia, Hypertension, Musculoskeletal Disorder (History of right hip total hip replacement with Dr. Nicholson 2 or 3 years ago), Pulmonary Embolus (PE) Additional Past Medical History / Comment(s): breast ca w/ L masectomy; "Mini strokes" per family History of Any Multi-Drug Resistant Organisms: None Reported Past Surgical History: Breast Surgery, Cholecystectomy, Joint Replacement, Orthopedic Surgery Additional Past Surgical History / Comment(s): thyroid cyst; Right hip replacement Past Anesthesia/Blood Transfusion Reactions: No Reported Reaction Additional Psychological History / Comment(s): Dementia possible Alzheimers Smoking Status: Never smoker Past Alcohol Use History: None Reported Past Drug Use History: None Reported Medications and Allergies Home Medications Medication Instructions Recorded Confirmed Type Carbidopa-Levodopa 25-100 mg 1 tab PO BID 10/05/14 06/23/17 History [Sinemet 25-100 mg] Donepezil HCl [Aricept] 10 mg PO HS 10/05/14 06/23/17 History Oxybutynin Chloride [Ditropan] 5 mg PO BID 10/05/14 06/23/17 History Simvastatin [Zocor] 40 mg PO HS 10/05/14 06/23/17 History Triamterene-Hctz 37.5-25Mg 1 tab PO DAILY 10/05/14 06/23/17 History [Maxzide 37.5-25] Warfarin Sodium 6 mg PO SUMOWEFR 10/05/14 06/23/17 History Calcium Carbonate [Calcium] 600 mg PO DAILY 07/08/15 06/23/17 History Multivitamins, Thera [Multivitamin 1 tab PO DAILY 07/08/15 06/23/17 History (formulary)] Warfarin Sodium 3 mg PO TUTHSA 07/08/15 06/23/17 History Allergies Allergy/AdvReac Type Severity Reaction Status Date / Time No Known Allergies Allergy Verified 06/23/17 14:08 Physical Examination Physical exam: Patient is awake, alert, and oriented 3 Vital signs stable Good chest excursion with deep inspiration and expiration Abdomen soft nontender Left lower extremity is mildly shortened and slightly externally rotated Pain with palpation of the left hip Significant pain with internal and external rotation of the left hip No pain with internal and external rotation of the right hip Neurovascularly intact bilateral lower extremities Dorsiflexion, plantarflexion, and extensor hallucis longus positive sustained bilaterally Calves are soft and supple; No signs or symptoms of DVT; No calf pain Pneumatic cuffs intact bilateral lower extremities Results Pertinent studies: X-rays of the left hip, left femur, and pelvis: Acute left intertrochanteric fracture of the left proximal femur; evidence of right total hip arthroplasty that appears to be in appropriate position; 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 - Labs Labs: Abnormal Lab Results - Last 24 Hours (Table) 06/24/17 Range/Units 07:56 Potassium 3.4 L (3.5-5.1) mmol/L BUN 30 H (7-17) mg/dL Creatinine 1.37 H (0.52-1.04) mg/dL Glucose 130 H (74-99) mg/dL Total Bilirubin 1.6 H (0.2-1.3) mg/dL AST 412 H (14-36) U/L Total Protein 5.5 L (6.3-8.2) g/dL Albumin 3.0 L (3.5-5.0) g/dL H & H 06/23/17 06/24/17 Range/Units 15:08 07:56 Hgb 16.0 12.5 D (11.4-16.0) gm/dL Hct 46.1 H 36.7 (34.0-46.0) % Coagulation 06/23/17 06/24/17 Range/Units 15:28 07:56 INR 4.9 H 5.6 H* (<1.2) Result Diagrams: 06/24/17 07:56 06/24/17 07:56 Assessment and Plan Assessment: Assessment: Acute traumatic left intertrochanteric hip fracture status post fall Left hip pain Inability to ambulate due to left hip fracture Elevated INR due to Coumadin use due to chronic pulmonary embolism History of right total hip arthroplasty which appears stable (1) Fracture, intertrochanteric, left femur Current Visit: Yes Status: Acute Code(s): S72.142A - DISPLACED INTERTROCHANTERIC FRACTURE OF LEFT FEMUR, INIT SNOMED Code(s): 012319757 (2) Status post fall Current Visit: Yes Status: Acute Code(s): Z91.81 - HISTORY OF FALLING SNOMED Code(s): 055393453 (3) Left hip pain Current Visit: Yes Status: Acute Code(s): M25.552 - PAIN IN LEFT HIP SNOMED Code(s): 21905955 (4) Chronic pulmonary embolism Current Visit: Yes Status: Acute Code(s): I27.82 - CHRONIC PULMONARY EMBOLISM SNOMED Code(s): 978051764673274 (5) History of total right hip arthroplasty Current Visit: Yes Status: Acute Code(s): Z96.641 - PRESENCE OF RIGHT ARTIFICIAL HIP JOINT SNOMED Code(s): 492223658682 (6) Elevated INR Current Visit: Yes Status: Acute Code(s): R79.1 - ABNORMAL COAGULATION PROFILE SNOMED Code(s): 445751321 Plan: Plan: 1. We are currently planning to proceed forward with surgical intervention for her left hip once cleared by medicine and INR has reduced to an appropriate level for surgical intervention. We are currently waiting for lab draw and results this morning. Her INR was 4.9 on admission and increased to 5.6 yesterday, 06/24/2017. Medicine prescribed her vitamin K to help reduce her INR level. Patient will continue to be on bed rest and nonweightbearing on the left lower extremity. Patient will continue to be nothing by mouth status in anticipation for surgical intervention today, 06/25/2017. Johnston catheter to remain intact. Surgical intervention has been discussed in detail with the patient and her family. I discussed these issues with the patient at length and I answered all of their questions to the best of my ability and the patient understands. I discussed the risk of surgical intervention and alternative treatment options. The risk of surgical intervention was explained to the patient in detail including but not limited to risk of bleeding, risk of infection, risk and need for further surgery, risk of decreased loss of motion of function, malunion, nonunion, hardware failure, nerve damage, paralysis, heart attack, , as well as the fact that surgery may not alleviate her symptoms. I answered all the patient's questions the best of my ability. The patient would like to proceed forward with surgical intervention and will sign informed consent. 2. Continue pain control 3. Medicine to continue following the patient closely; medicine to continue to monitor INR level and dosing of vitamin K as needed 4. We will continue follow patient closely Time with Patient: Less than 30
[2017-06-25 09:32] LABS: INR 1.6 (<1.2); Prothrombin Time 15.1 sec (9.0-12.0)
[2017-06-25] MEDS ORDERED: IV FLUID CONTINUATION 1,000 ML IV ONE (11:49)
[2017-06-25] MEDS ORDERED: PHENYLEPHRINE-0.9% NACL SYG 1 MG/10 ML SYRINGE ONE (12:45)
[2017-06-25] MEDS ORDERED: PROPOFOL 10 MG/ML 20 ML VIAL IV ONE (12:45)
[2017-06-25] MEDS ORDERED: LIDOCAINE 1% INJ 10MG/ML (20 ML MDV) ONE (12:45)
[2017-06-25] MEDS ORDERED: fentaNYL (PF) 50 MCG/ML 2 ML AMP ONE (12:45)
[2017-06-25] MEDS ORDERED: ceFAZolin 1,000 MG VIAL IVPB ONE (13:25)
[2017-06-25] MEDS ORDERED: LACTATED RINGERS 1,000 ML IV ONE (13:50)
[2017-06-25] MEDS ORDERED: MAGNESIUM HYDROXIDE 2,400 MG/10 ML CUP PO PRN ×2 (14:23→14:24)
[2017-06-25] MEDS ORDERED: BENZOCAINE/MENTHOL LOZENG 1 EACH LOZENGE MUCOUS MEM PRN (14:23)
[2017-06-25] MEDS ORDERED: MORPHINE SULFATE 4MG/4ML SYRG IVP PRN (14:23)
[2017-06-25] MEDS ORDERED: NALOXONE 0.4 MG/ML 1 ML VIAL IV PRN (14:24)
--- NOTE | 2017-06-25 14:42 | P.OP ---
Date of Procedure: 06/25/17 Preoperative Diagnosis: Left femur intertrochanteric hip fracture, displaced, acute due to a fall Postoperative Diagnosis: Same Anesthesia: GETA Pathology: other (Proximal femur reamings sent to pathology) Condition: stable Disposition: PACU Description of Procedure: Preoperative diagnosis: Left Intertrochanteric femoral hip fracture, displaced at acute due to a fall Postoperative diagnosis: Same Procedure: intertrochanteric hip screw placement Use of fluoroscopic guidance Closed reduction Surgeon: Dr. Kenya Castillot.: See Taylor who is present that the entire the case persistence during positioning dissection exposure placement of hardware and closure Anesthesia: Gen. per Dr. Dr. Clarke Estimated blood loss: Approximately 100 mL Components implanted: [employer]AN intramedullary hip screw 11.5 x 125 with a 100 mm lag screw and a 32.5 distal locking screw Specimen: Proximal femur reaming sent to pathology Disposition: To recovery room in good stable condition Operative indications The patient sustained a injury where she fell at home and suffered a hip fracture at the inter-trochanteric area of her femur which was displaced and angulated. We were involved in the case in regard to his hip fracture. After evaluation it was determined that they would be a candidate for hip internal fixation and stabilization via surgical intervention. This would give them the best chance of mobilization and ambulation. We discussed the range of treatment options from conservative to surgical. They elected proceed with surgical intervention. We answered their questions to the best of our ability healing which they can understand. They signed an informed consent. Operative summary After obtaining informed consent evaluation by anesthesia, preoperative evaluation and clearance for medical service, the patient was identified and prepped Johnston area and the surgical site was marked. There brought to the operating room where the given appropriate anesthesia by the anesthesia department in standard fashion without any complications. Once the anesthesia was established we were able to position the patient. The patient was placed on a fracture table with a well-padded perineal post. The operative side was placed in a foot olsen stirrup which was well-padded well molded and placed in gentle in-line traction. The nonoperative leg was placed in a padded supports and rested on the leg support. C-arm was brought in and we performed a closed reduction technique at the hip. We are able to get good alignment good position of the intertrochanteric fracture with gentle reduction techniques and traction utilizing the fracture table. Once patient was well positioned lower extremity was prepped and draped in normal standard sterile fashion. An appropriate keystone protocol and timeout was completed and were able to proceed with surgery. He started point just proximal to the greater trochanter was established and a median incision approximately 2 inches in length approximately to the greater trochanter. I dissected down through the fascia and I was able to expose the tip of the greater trochanter. A sharp starting hole was established at the tip of the greater trochanter near the junction of the anterior and middle third. Positioning was confirmed with C-arm guidance. I was able to start the awl into the bone and then use a guidepin at the starting point establish down to the level of the lesser trochanter at the intramedullary space. I then used a starting reamer for the greater trochanter placed over the guidepin and reamed down appropriately under C-arm guidance. I was unable to place a guidepin into the intramedullary aspect of the femur and then reamed appropriately to the appropriate length. The positioning was confirmed on C-arm guidance. With the femur appropriately reamed I then chose the appropriate size intramedullary nathalie which was connected to the appropriate jig. The jig was checked for alignment. The area was copiously irrigated and suctioned dry and we're able place the nathalie at intramedullary space through the starting hole appropriately. It was seated down for appropriate position to align the leg pain into the femoral neck and head. A second incision was established at the site for the placement of the lag screw area and the guide was established at the lateral aspect of the femur and a guidepin was drilled into the femoral neck and head and near center center position. With this appropriate alignment and position where a reamer over the guidepin making sure not to penetrate the articular surface. The position was confirmed on C-arm guidance in AP and lateral positions. With this established we were able to place the appropriate size lag screw after measuring to a 100 mm lag screw. Lag screw was placed into the femoral neck and head good alignment good position with excellent bony purchase. It was appropriately aligned and we placed a locking screw through the nathalie appropriately and checked that the position was established. I was able to drill and place the compression screw immediately adjacent and inferior to the lag screw which gave good compression across the fracture site in good alignment and position. With the area in good position able place a distal locking screw. We utilized the guide sleeve a separate incision was made at the skin. The guide sleeve was placed in the lateral aspect of the femur and the distal locking screw hole was established through the femur and distal locking hole of the intramedullary nathalie. It was measured appropriately and a distal locking screw was placed in good alignment and good position with excellent bony purchase. The position was checked to make sure it was through the appropriate hole in the intramedullary nathalie. With this established we're able to remove the jig completely from the nathalie and final images were taken which showed excellent alignment and position of the hardware and the fracture. With the nathalie in place and the fracture stable, although the incision sites were copiously irrigated and suctioned dry. Good hemostasis was maintained. Deep fascial layers were closed with #1 Vicryl. Subcu tissue was closed with 2-0 Vicryl. Subcuticular tissues closed with 3-0 Vicryl. Was are cleaned and dried with dressed with Dermabond and then dry dressing and tape. Drapes were broken down, the hip was held in stable position with the post being removed safely once the positioning was stabilized. The patient was then transferred back to their hospital bed being careful to maintain the hip and C- spine alignment and airway. Once stable to patient was transferred back to the postanesthesia care unit to be readmitted for pain control and DVT prophylaxis medical management and monitoring and mobilization we will continue follow patient closely throughout their postoperative course.
--- NOTE | 2017-06-25 14:46 | FL ---
Fluoroscopy HISTORY: Open reduction internal fixation left hip 1.27 minutes fluoroscopy time supplied to the referring clinician. 3 intraoperative C-arm images doc ument the procedure. See dictated report from orthopedic surgery.
--- NOTE | 2017-06-25 14:47 | XR ---
Limited left hip HISTORY: Fracture 3 intraoperative C-arm images document the procedure
[2017-06-25] MEDS ORDERED: ceFAZolin IN SWFI 2 GM/20 ML SYRINGE IVP SCH (16:00)
[2017-06-25] MEDS: LACTATED RINGERS 1,000 ML IV SCH (17:51)
[2017-06-25 18:30] LABS: Basophils % (A) 0 %; Eosinophils # (A) 0.1 k/uL (0-0.7); Eosinophils % (A) 1 %; HCT 28.3 % (34.0-46.0); Lymphocytes # (A) 0.5 k/uL (1.0-4.8); Lymphocytes % (A) 4 %; MCH 32.4 pg (25.0-35.0); MCV 95.3 fL (80.0-100.0); Mean Platelet Volume 9.5; Monocytes # (A) 0.9 k/uL (0-1.0); Monocytes % (A) 7 %; Neutrophils # (A) 10.7 k/uL (1.3-7.7); Neutrophils % (A) 87 %; Platelet Count 134 k/uL (150-450); RBC 2.96 m/uL (3.80-5.40); RDW 12.4 % (11.5-15.5); WBC 12.3 k/uL (3.8-10.6)
[2017-06-25 18:35] LABS: HGB 9.6 gm/dL (11.4-16.0)
[2017-06-25] MEDS ORDERED: traMADol 50 MG TAB PO PRN (20:11)
[2017-06-25] MEDS ORDERED: SODIUM CHLORIDE 0.9% 500 ML IV ONE (20:11)
[2017-06-25 20:17] LABS: Glucose,Whole Blood 159 mg/dL (75-99)
--- NOTE | 2017-06-25 20:31 | XR ---
EXAMINATION TYPE: XR chest 1V portable DATE OF EXAM: 06/25/2017 COMPARISON: 06/23/2017 HISTORY: Mental status changes TECHNIQUE: Single frontal view of the chest is obtained. FINDINGS: There is no heart failure nor confluent pneumonic infiltrate. Thoracic aorta is atheromato us. I see no definite pleural effusion. Bony thorax appears intact. IMPRESSION: No active cardiopulmonary disease. No change.
[2017-06-25 20:48] LABS: Basophils % (A) 0 %; Eosinophils # (A) 0.1 k/uL (0-0.7); Eosinophils % (A) 1 %; HCT 39.3 % (34.0-46.0); HGB 13.1 gm/dL (11.4-16.0); Lymphocytes # (A) 0.5 k/uL (1.0-4.8); Lymphocytes % (A) 5 %; MCH 31.1 pg (25.0-35.0); MCHC 33.3 g/dL (31.0-37.0); MCV 93.5 fL (80.0-100.0); Magnesium 1.4 mg/dL (1.6-2.3); Monocytes # (A) 0.7 k/uL (0-1.0); Monocytes % (A) 7 %; Neutrophils # (A) 8.9 k/uL (1.3-7.7); Neutrophils % (A) 87 %; Platelet Count 100 k/uL (150-450); Potassium 3.8 mmol/L (3.5-5.1); RDW 12.4 % (11.5-15.5); WBC 10.3 k/uL (3.8-10.6)
[2017-06-25] MEDS ORDERED: Potassium Replacement Protocol 1 EACH MISC MISCELLANE PRN (22:39)
[2017-06-25] MEDS ORDERED: Magnesium Replacement Protocol 1 EACH MISC MISCELLANE PRN (22:39)
[2017-06-25] MEDS: SODIUM CHLORIDE 0.9% 1,000 ML IV SCH (22:48)
[2017-06-25] MEDS ORDERED: IPRATROPIUM-ALBUTEROL 3 ML NEB INHALATION PRN (23:01)
[2017-06-25] MEDS ORDERED: ACETAMINOPHEN IV (For NPO) 1,000 MG in EMPTY BAG 1 BAG IVPB PRN (23:02)
[2017-06-25] MEDS: SENNOSIDES-DOCUSATE SODIUM 1 EACH TAB PO SCH (23:44)
[2017-06-25] MEDS: POTASSIUM CHLORIDE 10 MEQ in WATER FOR INJECTION 1 100ML.BAG IVPB SCH (23:51)
[2017-06-25] MEDS: ceFAZolin IN SWFI 2 GM/20 ML SYRINGE IVP SCH (23:51)
[2017-06-26] MEDS: DONEPEZIL 10 MG TAB PO SCH ×2 (00:01→20:15)
[2017-06-26] MEDS: WARFARIN 3 MG TAB PO SCH ×2 (00:02→17:28)
[2017-06-26] MEDS: ATORVASTATIN 20 MG TAB PO SCH ×2 (00:02→20:14)
[2017-06-26] MEDS: MAGNESIUM SULFATE-D5W PMX 1 GM in DEXTROSE/WATER 1 100ML.BAG IVPB SCH ×3 (02:24→06:28)
[2017-06-26] MEDS: LACTATED RINGERS 1,000 ML IV SCH ×2 (02:45→11:29)
[2017-06-26] MEDS: POTASSIUM CHLORIDE 10 MEQ in WATER FOR INJECTION 1 100ML.BAG IVPB SCH (03:45)
[2017-06-26] MEDS ORDERED: HYDROmorphone 2 MG TAB PO PRN (04:00)
[2017-06-26] MEDS: SODIUM CHLORIDE 0.9% 1,000 ML IV SCH ×2 (05:05→11:29)
[2017-06-26] MEDS: IPRATROPIUM-ALBUTEROL 3 ML NEB INHALATION SCH ×4 (06:57→20:24)
[2017-06-26] MEDS: OXYBUTYNIN CHLORIDE 5 MG TAB PO SCH ×2 (09:00→20:14)
[2017-06-26] MEDS ORDERED: TRIAMTERENE-HCTZ 37.5-25MG 1 EACH TAB PO SCH (09:00)
[2017-06-26] MEDS ORDERED: SENNOSIDES-DOCUSATE SODIUM 1 EACH TAB PO SCH (09:00)
[2017-06-26] MEDS: CARBIDOPA-LEVODOPA 25-100 MG 1 EACH TAB PO SCH ×2 (09:00→20:14)
[2017-06-26] MEDS: ceFAZolin IN SWFI 2 GM/20 ML SYRINGE IVP SCH (09:28)
[2017-06-26] MEDS ORDERED: SODIUM CHLORIDE 0.9% 500 ML IV ONE (10:55)
[2017-06-26 11:08] LABS: Basophils % (A) 0 %; Eosinophils % (A) 0 %; HCT 23.9 % (34.0-46.0); Lymphocytes # (A) 1.5 k/uL (1.0-4.8); Lymphocytes % (A) 12 %; MCH 32.2 pg (25.0-35.0); MCHC 33.5 g/dL (31.0-37.0); Mean Platelet Volume 10.2; Monocytes # (A) 0.5 k/uL (0-1.0); Monocytes % (A) 4 %; Neutrophils # (A) 9.8 k/uL (1.3-7.7); Neutrophils % (A) 82 %; Platelet Count 116 k/uL (150-450); RBC 2.48 m/uL (3.80-5.40); RDW 12.6 % (11.5-15.5); WBC 11.9 k/uL (3.8-10.6)
[2017-06-26 11:12] LABS: Glucose,Whole Blood 246 mg/dL (75-99)
[2017-06-26 11:42] LABS: Calcium 7.2 mg/dL (8.4-10.2); Magnesium 2.4 mg/dL (1.6-2.3); Potassium 3.5 mmol/L (3.5-5.1)
[2017-06-26] MEDS ORDERED: DEXTROSE 5% IN WATER 100 ML with AMIODARONE 150 MG IV ONE (12:14)
--- NOTE | 2017-06-26 12:17 | P.CNPUL ---
History of Present Illness Consult date: 06/26/17 Reason for consult: dyspnea, pulmonary embolism Chief complaint: Atrial fibrillation, hypotension History of present illness: Consult dated 06/26/2017. This is an 86-year-old female who is status post left hip surgery. The patient had surgery yesterday. She was a rapid response team evaluation last night by one of my ICU nurses from my ICU. The patient was stable kept on the floor. Anyway sometime today she developed atrial fibrillation with rapid ventricular response which is new and also developed hypotension. She denies any chest pain or chest discomfort. She denies any shortness of breath difficulty breathing. She apparently was living by herself. The patient apparently a misstep and fell and fractured her left femur which was repaired yesterday by Dr. Quinn and orthopedics. The patient does have a history of Parkinson's disease stress urinary incontinence dementia pulmonary embolism made about 10 years ago and osteoporosis. The patient's a family member tells me that she was told that she needed lifelong anticoagulation because she had "thick blood" . Because the patient was again a rapid response team today, she was moved to the ICU for better management and evaluation. Cardiology is been consulted. The patient had an echocardiogram ordered. I did order Doppler of the left lower extremity. She did get Coumadin last night. I probably will put her through the diagnosis of PE by doing a CT angiogram or a VQ scan. She's can be treated anyway. Review of Systems A 12 point review of system is essentially negative. She really doesn't have any complaints at this time. It was more that they noted she was hypotensive and had atrial fibrillation with RVR. She really wasn't complaining of much of the time. She does have pain in the left hip area where she had the surgery. Past Medical History Past Medical History: Cancer, Hyperlipidemia, Hypertension, Musculoskeletal Disorder (History of right hip total hip replacement with Dr. Nicholson 2 or 3 years ago), Pulmonary Embolus (PE) Additional Past Medical History / Comment(s): breast ca w/ L masectomy; "Mini strokes" per family History of Any Multi-Drug Resistant Organisms: None Reported Past Surgical History: Breast Surgery, Cholecystectomy, Joint Replacement, Orthopedic Surgery Additional Past Surgical History / Comment(s): thyroid cyst; Right hip replacement Past Anesthesia/Blood Transfusion Reactions: No Reported Reaction Additional Psychological History / Comment(s): Dementia possible Alzheimers Smoking Status: Never smoker Past Alcohol Use History: None Reported Past Drug Use History: None Reported Medications and Allergies Home Medications Medication Instructions Recorded Confirmed Type Carbidopa-Levodopa 25-100 mg 1 tab PO BID 10/05/14 06/23/17 History [Sinemet 25-100 mg] Donepezil HCl [Aricept] 10 mg PO HS 10/05/14 06/23/17 History Oxybutynin Chloride [Ditropan] 5 mg PO BID 10/05/14 06/23/17 History Simvastatin [Zocor] 40 mg PO HS 10/05/14 06/23/17 History Triamterene-Hctz 37.5-25Mg 1 tab PO DAILY 10/05/14 06/23/17 History [Maxzide 37.5-25] Warfarin Sodium 6 mg PO SUMOWEFR 10/05/14 06/23/17 History Calcium Carbonate [Calcium] 600 mg PO DAILY 07/08/15 06/23/17 History Multivitamins, Thera [Multivitamin 1 tab PO DAILY 07/08/15 06/23/17 History (formulary)] Warfarin Sodium 3 mg PO TUTHSA 07/08/15 06/23/17 History Allergies Allergy/AdvReac Type Severity Reaction Status Date / Time No Known Allergies Allergy Verified 06/23/17 14:08 Physical Exam Osteopathic Statement: *. No significant issues noted on an osteopathic structural exam other than those noted in the History and Physical/Consult. Vitals: Vital Signs Temp Pulse Pulse Resp BP BP Pulse Ox 06/26/17 11:51 103 H 06/26/17 11:38 111 H 06/26/17 11:20 110 H 23 87/54 93 L 06/26/17 11:10 98.0 F 110 H 19 87/54 92 L 06/26/17 10:30 98.4 F 79 14 72/45 95 06/26/17 08:00 102 H 14 06/26/17 07:14 106 H 06/26/17 07:00 98.9 F 102 H 14 93/62 95 06/26/17 06:59 102 H 94 L 06/26/17 03:44 98.4 F 06/26/17 02:58 101.4 F H 06/26/17 01:17 99.7 F H 115 H 18 93/62 97 06/26/17 00:15 90/62 06/26/17 00:13 100.7 F H 06/25/17 23:15 116 H 06/25/17 23:07 116 H 06/25/17 22:43 100.5 F H 06/25/17 22:37 116 H 101/67 06/25/17 22:02 118 H 20 97/52 96 06/25/17 21:48 96 06/25/17 21:47 118 H 20 99/62 06/25/17 21:02 100.8 F H 120 H 90/61 96 06/25/17 19:58 122 H 86/61 06/25/17 19:55 101.1 F H 120 H 20 93/53 97 06/25/17 18:00 110 H 16 101/56 95 06/25/17 17:45 111 H 16 93/54 91 L 06/25/17 17:30 107 H 16 89/50 92 L 06/25/17 17:15 104 H 16 85/54 92 L 06/25/17 17:00 104 H 16 81/53 91 L 06/25/17 16:45 109 H 16 88/53 92 L 06/25/17 16:30 105 H 16 80/52 91 L 06/25/17 16:15 108 H 16 85/47 91 L 06/25/17 16:00 98.1 F 110 H 16 94/50 94 L 06/25/17 15:35 121 H 18 116/58 95 06/25/17 15:20 121 H 18 123/60 94 L 06/25/17 15:05 120 H 18 123/60 99 06/25/17 14:50 117 H 16 116/60 100 06/25/17 14:38 99.4 F 120 H 14 141/62 98 Intake and Output 06/25/17 06/26/17 06/26/17 22:59 06:59 14:59 Intake Total 150 600 375 Output Total 160 200 Balance -10 400 375 Intake: IV 150 Intake, IV Titration 600 Amount Sodium Chloride 0.9% 500 600 ml @ 999 mls/hr IV .Q31M ONE Rx#:[id number] Oral 375 Output: Urine 160 200 Other: Voiding Method Indwelling Catheter Indwelling Catheter Weight 90.1 kg No acute distress, oriented 3. Nasal O2 in place. HEENT examination is grossly unremarkable. Mucous membranes are moist. No oral lesions. Neck supple. Full range of motion. No adenopathy thyromegaly or neck vein distention. Cardiovascular examination reveals regular rhythm rate. S1-S2 normal. No S3 or S4. No discernible murmur noted. Lungs reveal scattered bilateral rhonchi. Breath sounds are equal. She does not take deep breaths. Her chest is congested sounding.. Abdomen soft bowel sounds are heard. No masses or tenderness. Extremities are intact. No cyanosis clubbing or edema. Skin is without rash or lesion. Neurologic examination is brief but nonfocal. Results - Laboratory Findings CBC and BMP: 06/25/17 20:32 06/26/17 11:18 PT/INR, D-dimer PT 15.1 sec (9.0-12.0) H 06/25/17 08:39 INR 1.6 (<1.2) H 06/25/17 08:39 Abnormal lab findings: Abnormal Labs 06/23/17 06/23/17 06/23/17 12:17 15:08 15:28 WBC 12.5 H RBC Hgb Hct 46.1 H Plt Count Neutrophils # 9.7 H Lymphocytes # PT 44.2 H INR 4.9 H APTT 32.7 H Sodium Potassium Carbon Dioxide BUN Creatinine Glucose POC Glucose (mg/dL) Plasma Lactic Acid Prieto Calcium Magnesium Total Bilirubin AST Troponin I Total Protein Albumin Urine Appearance Cloudy H Urine Protein Trace H Amorphous Sediment Rare H Urine Mucus Rare H 06/23/17 06/24/17 06/24/17 17:32 07:56 07:56 WBC RBC Hgb Hct Plt Count 147 L Neutrophils # Lymphocytes # PT 50.7 H INR 5.6 H* APTT Sodium Potassium 3.3 L Carbon Dioxide BUN 36 H Creatinine 1.60 H Glucose 154 H POC Glucose (mg/dL) Plasma Lactic Acid Prieto Calcium 10.7 H Magnesium Total Bilirubin AST 86 H Troponin I Total Protein Albumin Urine Appearance Urine Protein Amorphous Sediment Urine Mucus 06/24/17 06/25/17 06/25/17 07:56 08:39 18:20 WBC 12.3 H RBC 2.96 L Hgb 9.6 L D Hct 28.3 L Plt Count 134 L Neutrophils # 10.7 H Lymphocytes # 0.5 L PT 15.1 H INR 1.6 H APTT Sodium Potassium 3.4 L Carbon Dioxide BUN 30 H Creatinine 1.37 H Glucose 130 H POC Glucose (mg/dL) Plasma Lactic Acid Prieto Calcium Magnesium Total Bilirubin 1.6 H AST 412 H Troponin I Total Protein 5.5 L Albumin 3.0 L Urine Appearance Urine Protein Amorphous Sediment Urine Mucus 06/25/17 06/25/17 06/25/17 20:01 20:32 20:32 WBC RBC Hgb Hct Plt Count 100 L Neutrophils # 8.9 H Lymphocytes # 0.5 L PT INR APTT Sodium Potassium Carbon Dioxide BUN Creatinine Glucose POC Glucose (mg/dL) 159 H Plasma Lactic Acid Prieto Calcium Magnesium 1.4 L Total Bilirubin AST Troponin I Total Protein Albumin Urine Appearance Urine Protein Amorphous Sediment Urine Mucus 06/25/17 06/26/17 06/26/17 20:50 07:00 07:00 WBC 11.9 H RBC 2.48 L Hgb 8.0 L D Hct 23.9 L Plt Count 116 L Neutrophils # 9.8 H Lymphocytes # PT INR APTT Sodium Potassium Carbon Dioxide BUN Creatinine Glucose POC Glucose (mg/dL) Plasma Lactic Acid Prieto 2.4 H* Calcium Magnesium 2.4 H Total Bilirubin AST Troponin I Total Protein Albumin Urine Appearance Urine Protein Amorphous Sediment Urine Mucus 06/26/17 06/26/17 06/26/17 11:10 11:18 11:18 WBC RBC Hgb Hct Plt Count Neutrophils # Lymphocytes # PT INR APTT Sodium 135 L Potassium Carbon Dioxide 17 L BUN 25 H Creatinine 1.40 H Glucose 169 H POC Glucose (mg/dL) 246 H Plasma Lactic Acid Prieto Calcium 7.2 L Magnesium 2.4 H Total Bilirubin AST Troponin I 0.107 H* Total Protein Albumin Urine Appearance Urine Protein Amorphous Sediment Urine Mucus - Diagnostic Findings Chest x-ray: image reviewed (Labs x-rays a medications are all reviewed.) Assessment and Plan Assessment: Assessment New-onset atrial fibrillation with hypotension, which may relate to intrinsic cardiac disease and/or recurrent pulmonary embolism. Recent left hip repair History of Parkinson's disease History of dementia Stress urinary incontinence. Previous history of pulmonary embolism, for which the patient was recommended to have a lifelong blood thinners, possibly related to hypercoagulable state History of aortic stenosis Osteoporosis Gait dysfunction Plan: Plan dated 06/26/2017 The patient is going to be seen by cardiology. The patient is going to have an echocardiogram. The patient will get Coumadin tonight. We'll do a Doppler the left lower extremity. Additional recommendations and suggestions are forthcoming. We'll get quick PT INR on this patient. Additional recommendations and suggestions are forthcoming. She is a DO NOT RESUSCITATE. Time with Patient: Greater than 30
[2017-06-26 12:22] LABS: INR 1.2 (<1.2); Prothrombin Time 11.4 sec (9.0-12.0)
--- NOTE | 2017-06-26 12:22 | P.CRDCN ---
History of Present Illness Consult date: 06/26/17 History of present illness: This is a pleasant 86-year-old female patient with a past medical history significant for Parkinson disease as well as history of dyslipidemia and history of PE on oral anticoagulation with Coumadin was admitted to the hospital and underwent left hip surgery after she fell at home and fractured her left hip. The surgery was uneventful. Today is postoperative day #1. The patient was not feeling well and she developed an atrial fibrillation with a rapid ventricular response and she was converted back to normal sinus mechanism. Beside that she is hypotensive with a systolic blood pressure around 80 mmHg. The hemoglobin is around 8. She denies having any chest pain or chest discomfort or shortness of breath or feeling of heart racing or fluttering but she continues to feel weak as well as dizzy and lightheaded. The patient has been maintaining normal sinus mechanism. She is hypotensive right now and she is currently receiving a bolus of IV fluid. I am going to start the patient on amiodarone bolus and drip. I recommended also giving the patient another bolus of IV fluid. She does not seems to be in overt congestive heart failure at this point. The chest x-ray from yesterday did not show any acute abnormalities. I will continue oral anticoagulation was Coumadin as well. And we'll continue following up with her. We will obtain echocardiogram to assess the LV function as well. She does have significant systolic murmur at the right upper sternal border. Past Medical History Past Medical History: Cancer, Hyperlipidemia, Hypertension, Musculoskeletal Disorder (History of right hip total hip replacement with Dr. Nicholson 2 or 3 years ago), Pulmonary Embolus (PE) Additional Past Medical History / Comment(s): breast ca w/ L masectomy; "Mini strokes" per family History of Any Multi-Drug Resistant Organisms: None Reported Past Surgical History: Breast Surgery, Cholecystectomy, Joint Replacement, Orthopedic Surgery Additional Past Surgical History / Comment(s): thyroid cyst; Right hip replacement Past Anesthesia/Blood Transfusion Reactions: No Reported Reaction Additional Psychological History / Comment(s): Dementia possible Alzheimers Smoking Status: Never smoker Past Alcohol Use History: None Reported Past Drug Use History: None Reported Medications and Allergies Home Medications Medication Instructions Recorded Confirmed Type Carbidopa-Levodopa 25-100 mg 1 tab PO BID 10/05/14 06/23/17 History [Sinemet 25-100 mg] Donepezil HCl [Aricept] 10 mg PO HS 10/05/14 06/23/17 History Oxybutynin Chloride [Ditropan] 5 mg PO BID 10/05/14 06/23/17 History Simvastatin [Zocor] 40 mg PO HS 10/05/14 06/23/17 History Triamterene-Hctz 37.5-25Mg 1 tab PO DAILY 10/05/14 06/23/17 History [Maxzide 37.5-25] Warfarin Sodium 6 mg PO SUMOWEFR 10/05/14 06/23/17 History Calcium Carbonate [Calcium] 600 mg PO DAILY 07/08/15 06/23/17 History Multivitamins, Thera [Multivitamin 1 tab PO DAILY 07/08/15 06/23/17 History (formulary)] Warfarin Sodium 3 mg PO TUTHSA 07/08/15 06/23/17 History Allergies Allergy/AdvReac Type Severity Reaction Status Date / Time No Known Allergies Allergy Verified 06/23/17 14:08 Physical Exam Vitals: Vital Signs Temp Pulse Pulse Resp BP BP Pulse Ox 06/26/17 12:00 109 H 23 84/46 97 06/26/17 11:51 103 H 06/26/17 11:50 106 H 17 79/47 90 L 06/26/17 11:40 108 H 15 79/47 96 06/26/17 11:38 111 H 06/26/17 11:20 110 H 23 87/54 93 L 06/26/17 11:10 98.0 F 110 H 19 87/54 92 L 06/26/17 10:30 98.4 F 79 14 72/45 95 06/26/17 08:00 102 H 14 06/26/17 07:14 106 H 06/26/17 07:00 98.9 F 102 H 14 93/62 95 06/26/17 06:59 102 H 94 L 06/26/17 03:44 98.4 F 06/26/17 02:58 101.4 F H 06/26/17 01:17 99.7 F H 115 H 18 93/62 97 06/26/17 00:15 90/62 06/26/17 00:13 100.7 F H 06/25/17 23:15 116 H 06/25/17 23:07 116 H 06/25/17 22:43 100.5 F H 06/25/17 22:37 116 H 101/67 06/25/17 22:02 118 H 20 97/52 96 06/25/17 21:48 96 06/25/17 21:47 118 H 20 99/62 06/25/17 21:02 100.8 F H 120 H 90/61 96 06/25/17 19:58 122 H 86/61 06/25/17 19:55 101.1 F H 120 H 20 93/53 97 06/25/17 18:00 110 H 16 101/56 95 06/25/17 17:45 111 H 16 93/54 91 L 06/25/17 17:30 107 H 16 89/50 92 L 06/25/17 17:15 104 H 16 85/54 92 L 06/25/17 17:00 104 H 16 81/53 91 L 06/25/17 16:45 109 H 16 88/53 92 L 06/25/17 16:30 105 H 16 80/52 91 L 06/25/17 16:15 108 H 16 85/47 91 L 06/25/17 16:00 98.1 F 110 H 16 94/50 94 L 06/25/17 15:35 121 H 18 116/58 95 06/25/17 15:20 121 H 18 123/60 94 L 06/25/17 15:05 120 H 18 123/60 99 06/25/17 14:50 117 H 16 116/60 100 06/25/17 14:38 99.4 F 120 H 14 141/62 98 Intake and Output 06/25/17 06/26/17 06/26/17 22:59 06:59 14:59 Intake Total 150 600 375 Output Total 160 200 Balance -10 400 375 Intake: IV 150 Intake, IV Titration 600 Amount Sodium Chloride 0.9% 500 600 ml @ 999 mls/hr IV .Q31M ONE Rx#:[id number] Oral 375 Output: Urine 160 200 Other: Voiding Method Indwelling Catheter Indwelling Catheter Weight 90.1 kg - Constitutional General appearance: no acute distress - Respiratory Respiratory: bilateral: rales - Cardiovascular Rhythm: regular Heart sounds: normal: S1, S2 Abnormal Heart Sounds: systolic murmur Results 06/25/17 20:32 06/26/17 11:18 Cardiac Enzymes 06/26/17 Range/Units 11:18 Troponin I 0.107 H* (0.000-0.034) ng/mL CBC 06/25/17 06/25/17 06/26/17 Range/Units 18:20 20:32 07:00 WBC 12.3 H 10.3 11.9 H (3.8-10.6) k/uL RBC 2.96 L 4.20 2.48 L (3.80-5.40) m/uL Hgb 9.6 L D 13.1 D 8.0 L D (11.4-16.0) gm/dL Hct 28.3 L 39.3 23.9 L (34.0-46.0) % Plt Count 134 L 100 L 116 L (150-450) k/uL Comprehensive Metabolic Panel 06/25/17 06/26/17 Range/Units 20:32 11:18 Sodium 135 L (137-145) mmol/L Potassium 3.8 3.5 (3.5-5.1) mmol/L Chloride 103 (98-107) mmol/L Carbon Dioxide 17 L (22-30) mmol/L BUN 25 H (7-17) mg/dL Creatinine 1.40 H (0.52-1.04) mg/dL Glucose 169 H (74-99) mg/dL Calcium 7.2 L (8.4-10.2) mg/dL Current Medications Generic Name Dose Route Start Last Admin Trade Name Freq PRN Reason Stop Dose Admin Acetaminophen 650 mg 06/25/17 20:12 Tylenol Tab PO Q6HR PRN Fever and/ or Mild Pain Acetaminophen/Codeine Phosphate 1 each 06/25/17 14:24 Tylenol #3 PO Q3HR PRN Pain Scale 1 to 5 Acetaminophen/Codeine Phosphate 2 each 06/25/17 14:24 Tylenol #3 PO Q3HR PRN Pain Scale 6 to 10 Albuterol/Ipratropium 3 ml 06/26/17 08:00 06/26/17 11:38 Duoneb 0.5 Mg-3 Mg/3 Ml Soln INHALATION 3 ml RT-QID MAGO Administration Albuterol/Ipratropium 3 ml 06/25/17 23:01 06/25/17 23:05 Duoneb 0.5 Mg-3 Mg/3 Ml Soln INHALATION 3 ml RT-Q2H PRN Administration Shortness Of Breath Or Wheezing Atorvastatin Calcium 20 mg 06/23/17 21:00 06/26/17 00:02 Lipitor PO 20 mg HS MAGO Administration Benzocaine/Menthol 1 each 06/25/17 14:23 Cepacol Lozenge MUCOUS MEM Q4HR PRN Sore Throat Calcium Carbonate/Glycine 500 mg 06/26/17 12:00 Tums PO DAILY@1200 MAGO Carbidopa/Levodopa 1 each 06/23/17 21:00 06/26/17 09:00 Sinemet 25-100 PO 1 each BID MAGO Administration Donepezil HCl 10 mg 06/23/17 21:00 06/26/17 00:01 Aricept PO 10 mg HS MAGO Administration Hydromorphone HCl 2 mg 06/26/17 04:00 Dilaudid PO Q4HR PRN Severe Pain Lactated Ringer's 1,000 mls @ 100 mls/hr 06/25/17 14:30 06/26/17 11:29 Lactated Ringers IV Not Given .Q10H MAGO Sodium Chloride 1,000 mls @ 75 mls/hr 06/25/17 14:30 06/26/17 11:29 Saline 0.9% IV 75 mls/hr .[id number] MAGO Administration Acetaminophen 1,000 mg/ IV 100 mls @ 400 mls/hr 06/25/17 23:02 06/26/17 01:39 Solution IVPB 06/26/17 18:14 400 mls/hr Q6HR PRN Administration Fever Magnesium Hydroxide 2,400 mg 06/25/17 14:24 Milk Of Magnesia PO DAILY PRN Constipation Miscellaneous Information 1 each 06/25/17 22:39 Magnesium Per Protocol MISCELLANE DAILY PRN Per Protocol Protocol Miscellaneous Information 1 each 06/25/17 22:39 Potassium Per Protocol MISCELLANE DAILY PRN Per Protocol Protocol Multivitamins 1 each 06/26/17 12:00 Theragran PO DAILY@1200 MAGO Naloxone HCl 0.2 mg 06/25/17 14:24 Narcan IV Q2M PRN Opioid Reversal Ondansetron HCl 4 mg 06/23/17 16:07 Zofran IVP Q8HR PRN Nausea And Vomiting Oxybutynin Chloride 5 mg 06/23/17 21:00 06/26/17 09:00 Ditropan PO 5 mg BID MAGO Administration Senna/Docusate Sodium 2 each 06/25/17 21:00 06/25/17 23:44 Senokot-S PO Not Given HS MAGO Tramadol HCl 50 mg 06/25/17 20:11 06/26/17 05:13 Ultram PO 50 mg QID PRN Administration Moderate Pain Triamterene/HCTZ 1 each 06/26/17 09:00 06/26/17 09:00 Maxzide-25 PO 1 each DAILY MAGO Administration Warfarin Sodium 3 mg 06/26/17 18:00 Coumadin PO TUTHSA MAGO Warfarin Sodium 6 mg 06/25/17 18:00 06/26/17 00:02 Coumadin PO 6 mg SUMOWEFR MAGO Administration Intake and Output 06/25/17 06/26/17 06/26/17 22:59 06:59 14:59 Intake Total 150 600 375 Output Total 160 200 Balance -10 400 375 Intake: IV 150 Intake, IV Titration 600 Amount Sodium Chloride 0.9% 500 600 ml @ 999 mls/hr IV .Q31M ONE Rx#:[id number] Oral 375 Output: Urine 160 200 Other: Voiding Method Indwelling Catheter Indwelling Catheter Weight 90.1 kg Patient Weight 06/27/17 06:59 Weight 90.1 kg 06/26/17 07:00 06/26/17 11:18 Assessment and Plan Assessment: Assessment #1 left hip fracture and status post surgery #2 atrial fibrillation with a rapid ventricular response and the patient converted to normal sinus mechanism. This is a new diagnosis to the patient #3 hypotension #4 anemia with a hemoglobin around 8 #5 history of PE on oral anticoagulation Plan #1 continue supporting the blood pressure was IV fluid and possibly vasopressors #2 start the patient on amiodarone IV. She is not a candidate to receive any metoprolol in view of the low blood pressure #3 continue oral anticoagulation with Coumadin #4 obtain an echocardiogram was Doppler #5 check the BMP #6 follow-up with the patient Thank you for allowing us participate in her care and we'll continue following up with the patient
--- NOTE | 2017-06-26 13:07 | P.PN ---
Progress Note - Text Progress Note Date: 06/26/17 Patient is a very pleasant 86-year-old female who is seen and examined in the ICU for further evaluation for her left hip. She is status post intramedullary nail fixation for left intertrochanteric hip fracture performed yesterday, 06/25. Patient was on [address]. She was transferred to bedside chair when she went into atrial fibrillation and RVR. She has been transferred to the ICU for treatment and evaluation. Nursing states she was able to spontaneously return to her baseline EKG settings. She has been seen and examined by Dr. Holley in cardiology. Patient will be started on amiodarone drip. She'll continue to remain in the ICU for further evaluation. Patient is currently undergoing a venous ultrasound Doppler of the left lower extremity while the patient is being seen at the bedside. Patient is lying comfortably in bed. She is not currently complaining of significant pain in her left hip. Nursing states her pain has been adequately controlled. Troponin labs were taken on 06/26/2017 at approximately 11:15 AM which showed elevation of troponin at 0.107. Patient is also being seen by Dr. Roberts in pulmonology. Physical Exam Intramedullary Rodding for Intertrochanteric Fracture: Status post surgical day number 1 Patient is examined lying in bed in the ICU Patient is awake and alert, and oriented 3 Vital signs stable Good chest excursion with deep inspiration and expiration; patient currently on O2 nasal cannula Lower extremity cuff in place on the right lower extremity Patiently currently receiving further evaluation with an ultrasound venous Doppler of the left lower extremity Dressing of the left hip is clean, dry, and intact; no erythema, purulence, or signs of infection Pertinent studies taken on 06/26/2017: WBC 11.9 Hemoglobin 8.0 Troponin 0.107 Assessment: Status post left intramedullary nail fixation for left intertrochanteric hip fracture Status post fall Left hip pain Recent episode of atrial fibrillation and RVR History of pulmonary embolism Plan: 1. Patient to remain nonweightbearing on the left lower extremity; patient may work with physical therapy to increase mobility and ambulation 2. Keep dressing over the left hip clean, dry, and intact 3. Discontinue Johnston catheter when patient is able to increase mobility and ambulation 4. Continue pain control 5. Continue with anticoagulation therapy as previously prescribed prior to surgical intervention; medicine to monitor again anticoagulation therapy 6. Patient will continue be seen and examined by Dr. Holley in cardiology for treatment in regards to her recent atrial fibrillation and RVR 6. Medicine and Dr. Roberts in pulmonology to continue following the patient for her other medical diagnosis 7. We'll continue to follow the patient closely; patient is planning for discharge to [facility] rehabilitation facility when cleared for discharge 8. Patient can follow-up with See Uribe PA-C or Dr. Andrew Zambrano at [facility] in 2-3 weeks following discharge
[2017-06-26] MEDS: AMIODARONE 450 MG in DEXTROSE 5% IN WATER 250 ML IV SCH ×4 (13:16→20:13)
--- NOTE | 2017-06-26 13:16 | US ---
EXAMINATION TYPE: US venous doppler duplex LE DATE OF EXAM: 06/26/2017 12:59 PM COMPARISON: NONE CLINICAL HISTORY: history PE. left hip surgery yesterday. No leg pain. Hx of PE. On Coumadin. Lef t leg swelling. SIDE PERFORMED: Bilateral TECHNIQUE: The lower extremity deep venous system is examined utilizing real time linear array sonog janet with graded compression, doppler sonography and color-flow sonography. VESSELS IMAGED: External Iliac Vein (EIV) Common Femoral Vein Deep Femoral Vein Greater Saphenous Vein * Femoral Vein Popliteal Vein Small Saphenous Vein * Proximal Calf Veins (* superficial vessels) Limited left leg examination due to recent surgery, swelling and immobility. Right Leg: Negative for DVT Left Leg: Negative for acute DVT. Distal Popliteal vein and proximal calf veins vascular flow not s een due patient position IMPRESSION: No definite DVT identified at this time.
[2017-06-26] MEDS: MULTIVITAMINS, THERA 1 EACH TAB PO SCH (13:20)
[2017-06-26] MEDS: CALCIUM CARBONATE 500 MG CHEWABLE PO SCH (13:20)
[2017-06-26] MEDS ORDERED: Potassium Replacement Protocol 1 EACH MISC MISCELLANE PRN (14:21)
[2017-06-26] MEDS ORDERED: POTASSIUM CHLORIDE ER 20 MEQ TAB.ER PO ONE (15:00)
[2017-06-26 17:28] LABS: Glucose,Whole Blood 223 mg/dL (75-99)
[2017-06-26] MEDS: INSULIN ASPART 100 UNIT/ML 1 ML 10 ML VIAL SQ SCH ×2 (17:29→20:21)
--- NOTE | 2017-06-26 18:57 | ECHOF ---
Referral Reason:LV fx MEASUREMENTS -------- HEIGHT: 170.2 cm WEIGHT: 80.3 kg BP: 93/62 RVIDd: 2.4 cm (< 3.3) IVSd: 1.3 cm (0.6 - 1.1) LVIDd: 3.3 cm (3.9 - 5.3) LVPWd: 1.2 cm (0.6 - 1.1) IVSs: 1.5 cm LVIDs: 1.8 cm LVPWs: 1.6 cm LAESV Index (A-L): 13.99 ml/m MV E Cameron: 0.99 m/s MV DecT: 295 ms MV A Cameron: 1.17 m/s MV E/A Ratio: 0.85 AV maxP.79 mmHg AV meanP.68 mmHg RAP: 5.00 mmHg RVSP: 35.77 mmHg FINDINGS -------- Sinus rhythm. This was a technically adequate study. The left ventricular size is normal. There is mild concentric left ventricular hypertrophy. Left ventricular systolic function is hyperdynamic with an estimated EF of >70%. The right ventricle is normal in size and function. Normal LA size by volume 22+/-6 ml/m2. The right atrium was not well visualized. There is moderate aortic valve sclerosis. Trace amount of aortic regurgitation. There is moderat e aortic stenosis present. Peak/mean gradient across the Aortic Valve is 42.79mmHg / 29.68mmHg. The mitral valve leaflets are mildly thickened. Mild mitral annular calcification present. There is trace to mild mitral regurgitation. Trace tricuspid regurgitation present. There is borderline pulmonary hypertension. The right vent ricular systolic pressure, as measured by Doppler, is 35.77mmHg. The pulmonic valve was not well visualized. The aortic root size is normal. Normal inferior vena cava with normal inspiratory collapse consistent with estimated right atrial pre ssure of 5 mmHg. There is no pericardial effusion. CONCLUSIONS -------- 1. Sinus rhythm. 2. This was a technically adequate study. 3. The left ventricular size is normal. 4. There is mild concentric left ventricular hypertrophy. 5. Left ventricular systolic function is hyperdynamic with an estimated EF of >70%. 6. Normal LA size by volume 22+/-6 ml/m2. 7. The right atrium was not well visualized. 8. There is moderate aortic valve sclerosis. 9. Trace amount of aortic regurgitation. 10. There is moderate aortic stenosis present. 11. Peak/mean gradient across the Aortic Valve is 42.79mmHg / 29.68mmHg. 12. The mitral valve leaflets are mildly thickened. 13. Mild mitral annular calcification present. 14. There is trace to mild mitral regurgitation. 15. Trace tricuspid regurgitation present. 16. There is borderline pulmonary hypertension. 17. The right ventricular systolic pressure, as measured by Doppler, is 35.77mmHg. 18. The pulmonic valve was not well visualized. 19. The aortic root size is normal. 20. There is no pericardial effusion. FAMILY SOCIOLOGIST: Ovidio Bender RDCS
[2017-06-26] MEDS ORDERED: POTASSIUM CHLORIDE ER 20 MEQ TAB.ER PO SCH (19:00)
[2017-06-26 20:15] LABS: Glucose,Whole Blood 142 mg/dL (75-99)
[2017-06-26] MEDS: SENNOSIDES-DOCUSATE SODIUM 1 EACH TAB PO SCH (20:20)
[2017-06-27] MEDS: LACTATED RINGERS 1,000 ML IV SCH ×3 (00:59→17:14)
[2017-06-27] MEDS: AMIODARONE 450 MG in DEXTROSE 5% IN WATER 250 ML IV SCH ×4 (03:47→12:12)
[2017-06-27 03:50] LABS: Basophils % (A) 0 %; Eosinophils # (A) 0.2 k/uL (0-0.7); Eosinophils % (A) 1 %; HCT 24.2 % (34.0-46.0); HGB 8.4 gm/dL (11.4-16.0); Lymphocytes # (A) 1.5 k/uL (1.0-4.8); Lymphocytes % (A) 10 %; MCH 31.7 pg (25.0-35.0); Mean Platelet Volume 10.7; Monocytes # (A) 0.8 k/uL (0-1.0); Monocytes % (A) 5 %; Neutrophils # (A) 13.5 k/uL (1.3-7.7); Neutrophils % (A) 84 %; Platelet Count 132 k/uL (150-450); RBC 2.66 m/uL (3.80-5.40); RDW 12.7 % (11.5-15.5); WBC 16.1 k/uL (3.8-10.6)
[2017-06-27 03:58] LABS: MCV 90.7 fL (80.0-100.0)
[2017-06-27 04:21] LABS: Calcium 7.3 mg/dL (8.4-10.2); Potassium 3.9 mmol/L (3.5-5.1)
[2017-06-27] MEDS: SODIUM CHLORIDE 0.9% 1,000 ML IV SCH ×2 (06:48→17:14)
[2017-06-27] MEDS ORDERED: POTASSIUM CHLORIDE ER 20 MEQ TAB.ER PO SCH ×2 (07:00→18:00)
[2017-06-27] MEDS: IPRATROPIUM-ALBUTEROL 3 ML NEB INHALATION SCH ×4 (07:05→20:03)
[2017-06-27 07:38] LABS: Glucose,Whole Blood 105 mg/dL (75-99)
[2017-06-27] MEDS: INSULIN ASPART 100 UNIT/ML 1 ML 10 ML VIAL SQ SCH ×4 (07:40→21:21)
[2017-06-27] MEDS: CARBIDOPA-LEVODOPA 25-100 MG 1 EACH TAB PO SCH ×2 (08:01→20:49)
[2017-06-27] MEDS: OXYBUTYNIN CHLORIDE 5 MG TAB PO SCH ×2 (08:01→20:49)
--- NOTE | 2017-06-27 08:54 | CDI ---
Last Revision, February 2017 Documentation Clarification Form Date: June 26, 2017 From: Christa Jackson RN Admit Date: 06/23/2017 3:39:00 PM Patient Name: Ivon Easton ATTENTION: The Clinical Documentation Specialists (CDI) and [facility] Coding Staff appreciate your assistance in clarifying documentation. Please respond to the clarification below the line at the bottom and electronically sign. The CDI & [facility] Coding staff will review the response and follow-up if needed. Please note: Queries are made part of the Legal Health Record. If you have any questions, please contact the author of this message via ITS. Dr. Malick Holley, A diagnosis of anemia lacks specificity to accurately reflect your patients severity of condition and clarification is needed. History/Risk Factors: uses walker, parkinsons, urinary incontinence, dementia, pe, osteoporosis, breast ca , mini stroke Present with left hip fracture Clinical indicators: Hemoglobin: On admission 16.0, /; 8/4 Hematocrit: on admission 46.1, 06/27; 24.2 Treatment: Fluid bolus Daily H&H In order to capture the severity of condition, please clarify the type of anemia and etiology if known: Acute blood loss anemia Acute on chronic blood loss anemia Chronic blood loss anemia Iron deficiency anemia Anemia due to malignancy Unable to determine Other, please specify Please continue to document in your progress notes and discharge summary in order to capture severity of illness and risk of mortality. Include clinical findings that support your diagnosis. MTDD
--- NOTE | 2017-06-27 09:30 | P.PN ---
Subjective Progress Note Date: 06/27/17 Principal diagnosis: New onset atrial fibrillation with hypotension This is an 86-year-old female who is status post left hip surgery. The patient had surgery yesterday. She was a rapid response team evaluation last night by one of my ICU nurses from my ICU. The patient was stable kept on the floor. Anyway sometime today she developed atrial fibrillation with rapid ventricular response which is new and also developed hypotension. She denies any chest pain or chest discomfort. She denies any shortness of breath difficulty breathing. She apparently was living by herself. The patient apparently a misstep and fell and fractured her left femur which was repaired yesterday by Dr. Quinn and orthopedics. The patient does have a history of Parkinson's disease stress urinary incontinence dementia pulmonary embolism made about 10 years ago and osteoporosis. The patient's a family member tells me that she was told that she needed lifelong anticoagulation because she had "thick blood" . Because the patient was again a rapid response team today, she was moved to the ICU for better management and evaluation. Cardiology is been consulted. The patient had an echocardiogram ordered. I did order Doppler of the left lower extremity. She did get Coumadin last night. I probably will put her through the diagnosis of PE by doing a CT angiogram or a VQ scan. She's can be treated anyway. On 06/27/2017 patient seen in follow-up in intensive care unit. He is awake alert, resting in bed, denies any acute distress, denies any chest pain, denies any dyspnea. Currently on 4 L per nasal cannula with O2 sat at 95%. Yesterday she was given a liter of IV 0.9 bolus for her hypotension, she was started on amiodarone drip for the new onset atrial fibrillation with rapid ventricular response, and had subsequently converted to sinus rhythm. She currently remains in sinus rhythm with a controlled rate, at 90-96 BPM. She is afebrile. Lung sounds are clear to auscultation, no rhonchi, no wheezes or rales noted. There is a harsh pansystolic murmur auscultated. Today's labs were reviewed, WBC is 16.1, hemoglobin is 8.4, sodium is 132, BUN is 22, creatinine is 1.0. Patient's calcium was 7.3, and troponins topped out at 0.107, and subsequently came down to 0.085 on this morning's labs. Patient denies any fever or chills. Her pain is reasonably controlled. She is tolerating oral intake, her maintenance IV 0.9 normal saline at 20 ML per hour, and amiodarone drip is infusing at 0.5 mg/m. She is making adequate amounts of urine, blood cultures are pending. No acute events overnight. No new chest x-rays today, the chest x -ray that was completed on 06/25/2017 showed no acute cardiopulmonary disease. Objective - Vital Signs Vital signs: Vital Signs Temp 98.8 F 06/27/17 08:00 Pulse 96 06/27/17 09:00 Resp 16 06/27/17 09:00 BP 101/46 06/27/17 09:00 Pulse Ox 95 06/27/17 09:00 Intake & Output 06/26/17 06/27/17 06/27/17 18:59 06:59 18:59 Intake Total 784.419 370.496 140 Output Total 695 800 285 Balance 89.419 -429.504 -145 Weight 90.1 kg 90.1 kg Intake: IV 60 220 40 0.9 KVO 60 220 40 Intake, IV Titration 349.419 150.496 Amount Amiodarone 450 mg In 249.419 150.496 Dextrose 5% in Water 250 ml @ 1 MG/MIN 33.33 mls/ hr IV .Q7H31M [facility] Rx#: [id number] Dextrose 5% in Water 100 100 ml @ 618 mls/hr IV .Q10M ONE with Amiodarone 150 mg Rx#:[id number] Oral 375 Tube Feeding 100 Output: Urine 695 800 285 Other: Voiding Method Indwelling Catheter Indwelling Catheter - Exam No acute distress, oriented 3. Nasal O2 in place. Elderly female, resting in bed, in no acute distress, hard of hearing HEENT examination is grossly unremarkable. Mucous membranes are moist. No oral lesions. Neck supple. Full range of motion. No adenopathy thyromegaly or neck vein distention. Cardiovascular examination reveals regular rhythm rate. S1-S2 normal. No S3 or S4. There is a harsh pansystolic murmur, loudest over right sternal border second intercostal space. Breath sounds are equal. She does not take deep breaths. Lung sounds are clear to auscultation, no rhonchi or rales or wheezes noted on today's exam. Abdomen soft bowel sounds are heard. No masses or tenderness. Extremities are intact. No cyanosis clubbing or edema. Skin is without rash or lesion. Neurologic examination is brief but nonfoc - Labs CBC & Chem 7: 06/27/17 03:23 06/27/17 03:23 Labs: Abnormal Lab Results - Last 24 Hours (Table) 06/26/17 06/26/17 06/26/17 Range/Units 03:23 07:00 11:10 WBC 11.9 H (3.8-10.6) k/uL RBC 2.48 L (3.80-5.40) m/uL Hgb 8.0 L D (11.4-16.0) gm/dL Hct 23.9 L (34.0-46.0) % Plt Count 116 L (150-450) k/uL Neutrophils # 9.8 H (1.3-7.7) k/uL INR (<1.2) Sodium (137-145) mmol/L Carbon Dioxide (22-30) mmol/L BUN (7-17) mg/dL Creatinine (0.52-1.04) mg/dL Glucose (74-99) mg/dL POC Glucose (mg/dL) 246 H (75-99) mg/dL Calcium (8.4-10.2) mg/dL Magnesium (1.6-2.3) mg/dL Troponin I 0.062 H* (0.000-0.034) ng/mL 06/26/17 06/26/17 06/26/17 Range/Units :18 11:18 12:05 WBC (3.8-10.6) k/uL RBC (3.80-5.40) m/uL Hgb (11.4-16.0) gm/dL Hct (34.0-46.0) % Plt Count (150-450) k/uL Neutrophils # (1.3-7.7) k/uL INR 1.2 H (<1.2) Sodium 135 L (137-145) mmol/L Carbon Dioxide 17 L (22-30) mmol/L BUN 25 H (7-17) mg/dL Creatinine 1.40 H (0.52-1.04) mg/dL Glucose 169 H (74-99) mg/dL POC Glucose (mg/dL) (75-99) mg/dL Calcium 7.2 L (8.4-10.2) mg/dL Magnesium 2.4 H (1.6-2.3) mg/dL Troponin I 0.107 H* (0.000-0.034) ng/mL 06/26/17 06/26/17 06/26/17 Range/Units 17:27 17:32 20:12 WBC (3.8-10.6) k/uL RBC (3.80-5.40) m/uL Hgb (11.4-16.0) gm/dL Hct (34.0-46.0) % Plt Count (150-450) k/uL Neutrophils # (1.3-7.7) k/uL INR (<1.2) Sodium (137-145) mmol/L Carbon Dioxide (22-30) mmol/L BUN (7-17) mg/dL Creatinine (0.52-1.04) mg/dL Glucose (74-99) mg/dL POC Glucose (mg/dL) 223 H 142 H (75-99) mg/dL Calcium (8.4-10.2) mg/dL Magnesium (1.6-2.3) mg/dL Troponin I 0.085 H* (0.000-0.034) ng/mL 06/27/17 06/27/17 06/27/17 Range/Units 03:23 03:23 07:37 WBC 16.1 H (3.8-10.6) k/uL RBC 2.66 L (3.80-5.40) m/uL Hgb 8.4 L (11.4-16.0) gm/dL Hct 24.2 L (34.0-46.0) % Plt Count 132 L (150-450) k/uL Neutrophils # 13.5 H (1.3-7.7) k/uL INR (<1.2) Sodium 132 L (137-145) mmol/L Carbon Dioxide (22-30) mmol/L BUN 22 H (7-17) mg/dL Creatinine (0.52-1.04) mg/dL Glucose 112 H (74-99) mg/dL POC Glucose (mg/dL) 105 H (75-99) mg/dL Calcium 7.3 L (8.4-10.2) mg/dL Magnesium (1.6-2.3) mg/dL Troponin I (0.000-0.034) ng/mL Microbiology - Last 24 Hours (Table) 06/25/17 21:30 Blood Culture - Preliminary Blood No Growth after 24 hours 06/25/17 20:50 Blood Culture - Preliminary Blood No Growth after 24 hours Assessment and Plan Plan: Assessment: New-onset atrial fibrillation with hypotension, which may relate to intrinsic cardiac disease and/or recurrent pulmonary embolism. Venous Doppler of bilateral lower extremities was negative for DVT, CTA chest could not be completed related to patient's abnormal renal function. Patient is already receiving anticoagulation in the form of Coumadin for her atrial fibrillation as well as part of the DVT prophylaxis post left hip closed reduction Recent left hip repair History of Parkinson's disease History of dementia Stress urinary incontinence. Previous history of pulmonary embolism, for which the patient was recommended to have a lifelong blood thinners, possibly related to hypercoagulable state History of aortic stenosis Osteoporosis Gait dysfunction Plan: Patient is maintaining systolic blood pressures in the 90s to low 100s, she is making adequate amounts of urine, she is afebrile, vital signs are stable. She denies any chest pain, denies any dyspnea. Continue encouraging incentive spirometer use, she remains in sinus rhythm, continues on amiodarone drip at 0.5 mg/m. She is receiving Coumadin for her atrial fibrillation and this part of the DVT prophylaxis for her left hip closed reduction. Daily PT/INR. Patient is awake alert, denies any distress, will obtain a PICC line today. I performed a history & physical examination of the patient and discussed their management with my nurse practitioner, Lourdes Felix. I reviewed the nurse practitioner's note and agree with the documented findings and plan of care. Lung sounds are clear. The findings and the impression was discussed with the patient. I attest to the documentation by the nurse practitioner. Critical care time over 30 minutes Time with Patient: Greater than 30
[2017-06-27 10:21] LABS: INR 1.4 (<1.2)
--- NOTE | 2017-06-27 11:18 | P.PN ---
Subjective Progress Note Date: 06/27/17 Principal diagnosis: Hypotension This is a pleasant 86-year-old female patient with a past medical history significant for Parkinson disease as well as history of dyslipidemia and history of PE on oral anticoagulation with Coumadin was admitted to the hospital and underwent left hip surgery after she fell at home and fractured her left hip. The surgery was uneventful. Today is postoperative day #1. The patient was not feeling well and she developed an atrial fibrillation with a rapid ventricular response and she was converted back to normal sinus mechanism. Beside that she is hypotensive with a systolic blood pressure around 80 mmHg. The hemoglobin is around 8. She denies having any chest pain or chest discomfort or shortness of breath or feeling of heart racing or fluttering but she continues to feel weak as well as dizzy and lightheaded. The patient was converted to normal sinus mechanism yesterday and she has been maintaining normal sinus mechanism. The blood pressure has improved after the IV fluid yesterday. She was started on amiodarone IV and I am going to switch her to amiodarone by mouth. She continues to be on oral anticoagulation was Coumadin. The echocardiogram revealed normal LV function with moderate aortic stenosis. Objective - Vital Signs Vital signs: Vital Signs Temp 98.8 F 06/27/17 08:00 Pulse 91 06/27/17 10:51 Resp 17 06/27/17 10:51 BP 95/44 06/27/17 10:00 Pulse Ox 95 06/27/17 10:00 Intake & Output 06/26/17 06/27/17 06/27/17 18:59 06:59 18:59 Intake Total 784.419 370.496 180 Output Total 695 800 475 Balance 89.419 -429.504 -295 Weight 90.1 kg 90.1 kg Intake: IV 60 220 80 0.9 KVO 60 220 80 Intake, IV Titration 349.419 150.496 Amount Amiodarone 450 mg In 249.419 150.496 Dextrose 5% in Water 250 ml @ 1 MG/MIN 33.33 mls/ hr IV .Q7H31M [facility] Rx#: [id number] Dextrose 5% in Water 100 100 ml @ 618 mls/hr IV .Q10M ONE with Amiodarone 150 mg Rx#:[id number] Oral 375 Tube Feeding 100 Output: Urine 695 800 475 Other: Voiding Method Indwelling Catheter Indwelling Catheter Indwelling Catheter - Constitutional General appearance: Present: no acute distress - Respiratory Respiratory: bilateral: diminished - Cardiovascular Rhythm: regular Heart sounds: normal: S1, S2 Abnormal Heart Sounds: Present: systolic murmur - Labs CBC & Chem 7: 06/27/17 03:23 06/27/17 03:23 Labs: Abnormal Lab Results - Last 24 Hours (Table) 06/26/17 06/26/17 06/26/17 Range/Units 03:23 07:00 11:18 WBC 11.9 H (3.8-10.6) k/uL RBC 2.48 L (3.80-5.40) m/uL Hgb 8.0 L D (11.4-16.0) gm/dL Hct 23.9 L (34.0-46.0) % Plt Count 116 L (150-450) k/uL Neutrophils # 9.8 H (1.3-7.7) k/uL PT (9.0-12.0) sec INR (<1.2) Sodium (137-145) mmol/L Carbon Dioxide (22-30) mmol/L BUN (7-17) mg/dL Creatinine (0.52-1.04) mg/dL Glucose (74-99) mg/dL POC Glucose (mg/dL) (75-99) mg/dL Calcium (8.4-10.2) mg/dL Magnesium (1.6-2.3) mg/dL Troponin I 0.062 H* 0.107 H* (0.000-0.034) ng/mL 06/26/17 06/26/17 06/26/17 Range/Units 11:18 12:05 17:27 WBC (3.8-10.6) k/uL RBC (3.80-5.40) m/uL Hgb (11.4-16.0) gm/dL Hct (34.0-46.0) % Plt Count (150-450) k/uL Neutrophils # (1.3-7.7) k/uL PT (9.0-12.0) sec INR 1.2 H (<1.2) Sodium 135 L (137-145) mmol/L Carbon Dioxide 17 L (22-30) mmol/L BUN 25 H (7-17) mg/dL Creatinine 1.40 H (0.52-1.04) mg/dL Glucose 169 H (74-99) mg/dL POC Glucose (mg/dL) 223 H (75-99) mg/dL Calcium 7.2 L (8.4-10.2) mg/dL Magnesium 2.4 H (1.6-2.3) mg/dL Troponin I (0.000-0.034) ng/mL 06/26/17 06/26/17 06/27/17 Range/Units 17:32 20:12 03:23 WBC 16.1 H (3.8-10.6) k/uL RBC 2.66 L (3.80-5.40) m/uL Hgb 8.4 L (11.4-16.0) gm/dL Hct 24.2 L (34.0-46.0) % Plt Count 132 L (150-450) k/uL Neutrophils # 13.5 H (1.3-7.7) k/uL PT (9.0-12.0) sec INR (<1.2) Sodium (137-145) mmol/L Carbon Dioxide (22-30) mmol/L BUN (7-17) mg/dL Creatinine (0.52-1.04) mg/dL Glucose (74-99) mg/dL POC Glucose (mg/dL) 142 H (75-99) mg/dL Calcium (8.4-10.2) mg/dL Magnesium (1.6-2.3) mg/dL Troponin I 0.085 H* (0.000-0.034) ng/mL 06/27/17 06/27/17 06/27/17 Range/Units 03:23 07:37 09:48 WBC (3.8-10.6) k/uL RBC (3.80-5.40) m/uL Hgb (11.4-16.0) gm/dL Hct (34.0-46.0) % Plt Count (150-450) k/uL Neutrophils # (1.3-7.7) k/uL PT 13.0 H (9.0-12.0) sec INR 1.4 H (<1.2) Sodium 132 L (137-145) mmol/L Carbon Dioxide (22-30) mmol/L BUN 22 H (7-17) mg/dL Creatinine (0.52-1.04) mg/dL Glucose 112 H (74-99) mg/dL POC Glucose (mg/dL) 105 H (75-99) mg/dL Calcium 7.3 L (8.4-10.2) mg/dL Magnesium (1.6-2.3) mg/dL Troponin I (0.000-0.034) ng/mL Microbiology - Last 24 Hours (Table) 06/25/17 21:30 Blood Culture - Preliminary Blood No Growth after 24 hours 06/25/17 20:50 Blood Culture - Preliminary Blood No Growth after 24 hours Assessment and Plan Assessment: Assessment #1 left hip fracture and status post surgery #2 atrial fibrillation with a rapid ventricular response and the patient converted to normal sinus mechanism. This is a new diagnosis to the patient #3 hypotension #4 anemia with a hemoglobin around 8 #5 history of PE on oral anticoagulation Plan #1 switch the patient on amiodarone by mouth #2 continue oral anticoagulation was, then #3 the patient can be transferred to [facility] floor Thank you for allowing us participate in her care and we'll continue following up with the patient
--- NOTE | 2017-06-27 11:52 | P.PN ---
Progress Note - Text Progress Note Date: 06/27/17 Patient is a very pleasant 86-year-old female who is seen and examined in the ICU for further evaluation for her left hip. She is status post intramedullary nail fixation for left intertrochanteric hip fracture performed yesterday, 06/25. Patient was on 3 yesterday day when she was transferred to bedside chair when she went into atrial fibrillation and RVR. She has remained in the ICU for treatment and evaluation. Nursing states she was able to spontaneously return to her baseline EKG settings. She continues to be seen and examined by Dr. Holley in cardiology. Patient was started on amiodarone drip. He is planning to discontinue IV amiodarone and transition her to oral amiodarone today. She'll continue to remain in the ICU for further evaluation. Patient is lying comfortably in bed. She states she has been experiencing some pain in her left hip. Nursing states her pain has been adequately controlled. She continues to be seen and examined by Dr. Roberts in pulmonology as well who is planning to obtain a PICC line today. Patient underwent venous ultrasound Doppler of the bilateral lower extremities yesterday which were negative for DVT. Physical Exam Intramedullary Rodding for Intertrochanteric Fracture: Status post surgical day number 2 Patient is examined lying in bed in the ICU Patient is awake and alert, and oriented 3 Vital signs stable Good chest excursion with deep inspiration and expiration; patient currently on O2 nasal cannula Lower extremity cuff in place on the right lower extremity Dressing of the left hip is clean, dry, and intact; no erythema, purulence, or signs of infection Full range of motion of ankles bilaterally Dorsiflexion, plantarflexion, and extensor hallucis longus positive sustained bilaterally Neurovascularly intact bilateral lower extremities No signs or symptoms of DVT; no calf pain Pertinent studies taken on 06/26/2017: WBC 11.9 Hemoglobin 8.0 Troponin 0.107 Repeat troponin 0.085 Pertinent studies taken on 06/27/2017: INR 1.4 Assessment: Status post left intramedullary nail fixation for left intertrochanteric hip fracture Status post fall Left hip pain Recent episode of atrial fibrillation and RVR History of pulmonary embolism Plan: 1. We will continue with our treatment plan as previously set forth. Patient to remain nonweightbearing on the left lower extremity; patient may work with physical therapy to increase mobility and ambulation 2. Keep dressing over the left hip clean, dry, and intact 3. Discontinue [place] catheter when patient is able to increase mobility and ambulation 4. Continue pain control 5. Continue with anticoagulation therapy as previously prescribed prior to surgical intervention; medicine to monitor again anticoagulation therapy 6. Patient will continue be seen and examined by Dr. Holley in cardiology for treatment in regards to her recent atrial fibrillation and RVR 6. Medicine and Dr. Roberts in pulmonology to continue following the patient for her other medical diagnosis 7. We'll continue to follow the patient closely; patient is planning for discharge to [facility] rehabilitation facility when cleared for discharge 8. Patient can follow-up with See Uribe PA-C or Dr. Andrew Zambrano at [facility] in 2-3 weeks following discharge
[2017-06-27 12:26] LABS: Glucose,Whole Blood 113 mg/dL (75-99)
[2017-06-27 12:39] LABS: Glucose,Whole Blood 151 mg/dL (75-99)
[2017-06-27] MEDS ORDERED: LIDOCAINE 2% INJ 20 MG/ML (20 ML MDV) ONE (13:14)
[2017-06-27] MEDS: MULTIVITAMINS, THERA 1 EACH TAB PO SCH (13:16)
[2017-06-27] MEDS: CALCIUM CARBONATE 500 MG CHEWABLE PO SCH (13:16)
[2017-06-27] MEDS: PANTOPRAZOLE 40 MG TABLET PO SCH (13:16)
[2017-06-27] MEDS ORDERED: LIDOCAINE 2% INJ 20 MG/ML SQ ONE (13:38)
--- NOTE | 2017-06-27 14:03 | XR ---
EXAMINATION TYPE: XR chest 1V portable DATE OF EXAM: 06/27/2017 CLINICAL HISTORY: PICC line placement. TECHNIQUE: Single AP portable semiupright view of the chest is obtained. COMPARISON: Chest x-ray from 2 days earlier. FINDINGS: There is new right-sided PICC line with tip at caval atrial junction. There is persistent cardiomegaly with atherosclerotic thoracic aorta. There is persistent bibasilar opacity consistent wi th small bilateral pleural effusions and associated left basilar atelectasis and/or infiltrate. There is right lower lung linear scarring and/or atelectasis redemonstrated. Left axillary surgical clips are again seen. Multilevel spurring and spine is noted. Patient rotation is redemonstrated. IMPRESSION: New right-sided PICC line with tip at cavoatrial junction. Other findings stable with mil d cardiomegaly and suspected small bilateral pleural effusions and associated left basilar atelectasi s and/or infiltrate all redemonstrated
--- NOTE | 2017-06-27 14:52 | IR ---
EXAMINATION TYPE: IR cvc insert >=5 years DATE OF EXAM: 06/27/2017 COMPARISON: NONE HISTORY: Needs intravenous access for therapy, clinical medication IV access FINDINGS: Maximal barrier technique was utilized. The skin overlying the right brachial vein was loc alized with ultrasound and noted to be compressible and patent by ultrasound. An ultrasound image wa s obtained and submitted on patient's chart. Sterile technique utilized with the ultrasound machine. The skin overlying was prepped and draped and Lidocaine used for local anesthesia. A skin rosalia was m jeanie with a scalpel. Access was gained to the vein under direct ultrasound guidance with a 21-gauge n eedle and a 0.018 inch wire was advanced. Access site was dilated with a peel-away sheath and the ca theter tailored to length. Catheter advanced centrally and a post procedure chest x-ray verified pawan cement with the tip in the superior vena cava. Catheter was fixed to the skin and a sterile dressing placed. Hemostasis achieved and the catheter was aspirated and flushed with sterile saline. The pa tient remained in stable condition. IMPRESSION: STATUS POST ULTRASOUND GUIDED PICC LINE PLACEMENT, READY FOR USE. THIS PROCEDURE WAS PER FORMED BY THE UNDERSIGNED.
[2017-06-27 15:06] LABS: Basophils % (A) 0 %; Eosinophils # (A) 0.1 k/uL (0-0.7); Eosinophils % (A) 1 %; Lymphocytes # (A) 0.6 k/uL (1.0-4.8); Lymphocytes % (A) 6 %; MCH 32.1 pg (25.0-35.0); MCHC 35.4 g/dL (31.0-37.0); MCV 90.8 fL (80.0-100.0); Monocytes # (A) 0.3 k/uL (0-1.0); Monocytes % (A) 3 %; Neutrophils # (A) 9.1 k/uL (1.3-7.7); Neutrophils % (A) 89 %; Platelet Count 147 k/uL (150-450); RBC 2.18 m/uL (3.80-5.40); RDW 12.7 % (11.5-15.5); WBC 10.2 k/uL (3.8-10.6)
[2017-06-27 15:14] LABS: HCT 19.8 % (34.0-46.0)
[2017-06-27] MEDS: WARFARIN 3 MG TAB PO SCH (17:25)
[2017-06-27 17:30] LABS: Glucose,Whole Blood 131 mg/dL (75-99)
[2017-06-27] MEDS: SENNOSIDES-DOCUSATE SODIUM 1 EACH TAB PO SCH (20:49)
[2017-06-27] MEDS: ATORVASTATIN 20 MG TAB PO SCH (20:49)
[2017-06-27] MEDS: DONEPEZIL 10 MG TAB PO SCH (20:49)
[2017-06-27] MEDS: AMIODARONE 200 MG TAB PO SCH (20:49)
[2017-06-27 20:54] LABS: Glucose,Whole Blood 165 mg/dL (75-99)
[2017-06-27 21:58] LABS: Basophils % (A) 0 %; Eosinophils % (A) 0 %; Lymphocytes # (A) 0.5 k/uL (1.0-4.8); Lymphocytes % (A) 6 %; MCH 31.9 pg (25.0-35.0); MCV 91.2 fL (80.0-100.0); Mean Platelet Volume 8.8; Monocytes # (A) 0.4 k/uL (0-1.0); Monocytes % (A) 4 %; Neutrophils # (A) 7.8 k/uL (1.3-7.7); Neutrophils % (A) 88 %; Platelet Count 160 k/uL (150-450); RBC 2.18 m/uL (3.80-5.40); RDW 12.7 % (11.5-15.5); WBC 8.9 k/uL (3.8-10.6)
[2017-06-27 22:02] LABS: Magnesium 1.9 mg/dL (1.6-2.3); Potassium 3.5 mmol/L (3.5-5.1)
[2017-06-27 22:05] LABS: HCT 19.9 % (34.0-46.0); HGB 6.9 gm/dL (11.4-16.0)
--- NOTE | 2017-06-27 22:38 | P.PN ---
Subjective Progress Note Date: 06/25/17 Principal diagnosis: Left Intertrochanteric femoral hip fracture, displaced at acute due to a fall Patient is status post Left Intertrochanteric femoral hip fracture, displaced at acute due to a fall 06/26/1999 and lites in Patient underwent intertrochanteric hip screw placement with Use of fluoroscopic guidance. Closed reduction Patient is a poor historian but can answer simple questions. Currently denied any pain. No nausea vomiting or abdominal pain no commerce of chest pain or shortness of breath. Current medications reviewed. Objective - Vital Signs Vital signs: Vital Signs Temp 99.4 F 06/25/17 14:38 Pulse 121 H 06/25/17 16:00 Resp 18 06/25/17 15:35 BP 116/58 06/25/17 15:35 Pulse Ox 95 06/25/17 15:35 Intake & Output 06/24/17 06/25/17 06/25/17 18:59 06:59 18:59 Intake Total 742 1000 1850 Output Total 400 225 700 Balance 851 150 9300 Intake: IV 225 1450 Sodium Chloride 0.9% 1, 225 600 000 ml @ 75 mls/hr IV . [id number] ONE Rx#:[id number] Intake, IV Titration 600 Amount Sodium Chloride 0.9% 1, 600 000 ml @ 75 mls/hr IV . [id number] ONE Rx#:[id number] Oral 517 400 400 Output: Urine 400 225 600 Estimated Blood Loss 100 Other: Voiding Method Indwelling Catheter Indwelling Catheter Indwelling Catheter - Exam PHYSICAL EXAMINATION: Patient is lying in the bed comfortably, no acute distress, awake alert and oriented x1 .. HEENT: Normocephalic. Neck is supple. Pupils reactive. Nostrils clear. Oral cavity is moist. Ears reveal no drainage. Neck reveals no JVD, carotid bruits, or thyromegaly. CHEST EXAMINATION: Trachea is central. Symmetrical expansion. Lung galindo clear to auscultation and percussion. CARDIAC: Normal S1, S2 with no gallops. No murmurs ABDOMEN: Soft. Bowel sounds normal. No organomegaly. No abdominal bruits. Extremities: reveal no edema. No clubbing or cyanosis Neurologically awake, alert, oriented x1 with well-coordinated movements. No focal deficits noted Skin: No rash or skin lesions. Psychiatric: Coperative. Could not be assessed completely Musculoskeletal: Left femur surgical site bandaged. No leg swelling. - Labs CBC & Chem 7: 06/27/17 21:15 06/27/17 21:15 Labs: Abnormal Lab Results - Last 24 Hours (Table) 06/25/17 Range/Units 08:39 PT 15.1 H (9.0-12.0) sec INR 1.6 H (<1.2) Assessment and Plan Assessment: Status post fall Left Intertrochanteric femoral hip fracture. Underwent intertrochanteric screw placement on 06/25/2017 Parkinson's disease Dementia Chronic urinary incontinence Chronic pulmonary embolism on Coumadin Moderate aortic stenosis Osteoporosis and chronic gait dysfunction DVT prophylaxis patient is already on Coumadin Labs: Patient be continued on pain medications and bowel regimen. Encourage ambulation. Coumadin can be restarted. Otherwise we will continue the home medications and further recommendations based on the clinical course. Time with Patient: Greater than 30
--- NOTE | 2017-06-27 22:47 | P.PN ---
Subjective Progress Note Date: 06/26/17 Principal diagnosis: Left Intertrochanteric femoral hip fracture, displaced at acute due to a fall Patient is status post Left Intertrochanteric femoral hip fracture, displaced at acute due to a fall 06/25/2017 Patient underwent intertrochanteric hip screw placement with Use of fluoroscopic guidance. Closed reduction Patient is a poor historian but can answer simple questions. Currently denied any pain. No nausea vomiting or abdominal pain no commerce of chest pain or shortness of breath. 06/26/2017 Patient developed atrial fibrillation with rapid regular rate this morning. Patient was also hypotensive and felt generally weak and dizzy and lightheaded. fluid boluses was given. Patient was also to ICU for further management. Patient was started on amiodarone drip. Patient was converted back to sinus rhythm. Cardiology has seen the patient. Currently patient is in sinus rhythm. Patient was started back on antibiotic ablation with Coumadin. 2-D echocardiogram was ordered. Patient does have a history of moderate aortic stenosis. All other review of systems negative except the above. Current medications reviewed. Objective - Vital Signs Vital signs: Vital Signs Temp 98.7 F 06/26/17 20:00 Pulse 88 06/26/17 21:20 Resp 14 06/26/17 21:20 BP 95/48 06/26/17 21:20 Pulse Ox 96 06/26/17 21:20 Intake & Output 06/26/17 06/26/17 06/27/17 06:59 18:59 06:59 Intake Total 600 784.419 64.435 Output Total 310 695 265 Balance 290 89.419 -200.565 Weight 90.1 kg Intake: IV 60 40 0.9 KVO 60 40 Intake, IV Titration 600 349.419 24.435 Amount Amiodarone 450 mg In 249.419 24.435 Dextrose 5% in Water 250 ml @ 1 MG/MIN 33.33 mls/ hr IV .Q7H31M [facility] Rx#: [id number] Dextrose 5% in Water 100 100 ml @ 618 mls/hr IV .Q10M ONE with Amiodarone 150 mg Rx#:[id number] Sodium Chloride 0.9% 500 600 ml @ 999 mls/hr IV .Q31M ONE Rx#:[id number] Oral 375 Output: Urine 310 695 265 Other: Voiding Method Indwelling Catheter Indwelling Catheter Indwelling Catheter - Exam PHYSICAL EXAMINATION: Patient is lying in the bed comfortably, no acute distress, awake alert and oriented x1 .. HEENT: Normocephalic. Neck is supple. Pupils reactive. Nostrils clear. Oral cavity is moist. Ears reveal no drainage. Neck reveals no JVD, carotid bruits, or thyromegaly. CHEST EXAMINATION: Trachea is central. Symmetrical expansion. Lung galindo clear to auscultation and percussion. CARDIAC: Normal S1, S2 with no gallops. No murmurs ABDOMEN: Soft. Bowel sounds normal. No organomegaly. No abdominal bruits. Extremities: reveal no edema. No clubbing or cyanosis Neurologically awake, alert, oriented x1 with well-coordinated movements. No focal deficits noted Skin: No rash or skin lesions. Psychiatric: Coperative. Could not be assessed completely Musculoskeletal: Left femur surgical site bandaged. No leg swelling. - Labs CBC & Chem 7: 06/27/17 21:15 06/27/17 21:15 Labs: Abnormal Lab Results - Last 24 Hours (Table) 06/26/17 06/26/17 06/26/17 Range/Units 07:00 07:00 11:10 WBC 11.9 H (3.8-10.6) k/uL RBC 2.48 L (3.80-5.40) m/uL Hgb 8.0 L D (11.4-16.0) gm/dL Hct 23.9 L (34.0-46.0) % Plt Count 116 L (150-450) k/uL Neutrophils # 9.8 H (1.3-7.7) k/uL INR (<1.2) Sodium (137-145) mmol/L Carbon Dioxide (22-30) mmol/L BUN (7-17) mg/dL Creatinine (0.52-1.04) mg/dL Glucose (74-99) mg/dL POC Glucose (mg/dL) 246 H (75-99) mg/dL Calcium (8.4-10.2) mg/dL Magnesium 2.4 H (1.6-2.3) mg/dL Troponin I (0.000-0.034) ng/mL 06/26/17 06/26/17 06/26/17 Range/Units 11:18 11:18 12:05 WBC (3.8-10.6) k/uL RBC (3.80-5.40) m/uL Hgb (11.4-16.0) gm/dL Hct (34.0-46.0) % Plt Count (150-450) k/uL Neutrophils # (1.3-7.7) k/uL INR 1.2 H (<1.2) Sodium 135 L (137-145) mmol/L Carbon Dioxide 17 L (22-30) mmol/L BUN 25 H (7-17) mg/dL Creatinine 1.40 H (0.52-1.04) mg/dL Glucose 169 H (74-99) mg/dL POC Glucose (mg/dL) (75-99) mg/dL Calcium 7.2 L (8.4-10.2) mg/dL Magnesium 2.4 H (1.6-2.3) mg/dL Troponin I 0.107 H* (0.000-0.034) ng/mL 06/26/17 06/26/17 06/26/17 Range/Units 17:27 17:32 20:12 WBC (3.8-10.6) k/uL RBC (3.80-5.40) m/uL Hgb (11.4-16.0) gm/dL Hct (34.0-46.0) % Plt Count (150-450) k/uL Neutrophils # (1.3-7.7) k/uL INR (<1.2) Sodium (137-145) mmol/L Carbon Dioxide (22-30) mmol/L BUN (7-17) mg/dL Creatinine (0.52-1.04) mg/dL Glucose (74-99) mg/dL POC Glucose (mg/dL) 223 H 142 H (75-99) mg/dL Calcium (8.4-10.2) mg/dL Magnesium (1.6-2.3) mg/dL Troponin I 0.085 H* (0.000-0.034) ng/mL Assessment and Plan Assessment: Atrial fibrillation with rapid ventricular rate. New-onset Status post fall Left Intertrochanteric femoral hip fracture. Underwent intertrochanteric screw placement on 06/25/2017 Parkinson's disease Dementia Chronic urinary incontinence Chronic pulmonary embolism on Coumadin Moderate aortic stenosis Osteoporosis and chronic gait dysfunction DVT prophylaxis patient is already on Coumadin Labs: Patient was started on amiodarone drip. Currently in sinus rhythm. Patient be continued on pain medications and bowel regimen. Encourage ambulation. Coumadin can be restarted. Otherwise we will continue the home medications and further recommendations based on the clinical course. Time with Patient: Greater than 30
--- NOTE | 2017-06-27 22:48 | P.PN ---
Subjective Progress Note Date: 06/27/17 Principal diagnosis: Left Intertrochanteric femoral hip fracture, displaced at acute due to a fall New onset atrial fibrillation Patient is status post Left Intertrochanteric femoral hip fracture, displaced at acute due to a fall 06/25/2017 Patient underwent intertrochanteric hip screw placement with Use of fluoroscopic guidance. Closed reduction Patient is a poor historian but can answer simple questions. Currently denied any pain. No nausea vomiting or abdominal pain no commerce of chest pain or shortness of breath. 06/26/2017 Patient developed atrial fibrillation with rapid regular rate this morning. Patient was also hypotensive and felt generally weak and dizzy and lightheaded. fluid boluses was given. Patient was also to ICU for further management. Patient was started on amiodarone drip. Patient was converted back to sinus rhythm. Cardiology has seen the patient. Currently patient is in sinus rhythm. Patient was started back on antibiotic ablation with Coumadin. 2-D echocardiogram was ordered. Patient does have a history of moderate aortic stenosis. 06/27/2017 Patient currently maintained on sinus rhythm. Amiodarone changed to oral. Patient is being continued on Coumadin. Continue the current management and 2- D echocardiogram showed normal LV function and moderate aortic stenosis. Otherwise no fever no chills. No acute overnight issues. Patient is a poor historian. All other review of systems negative except the above. Current medications reviewed. Active Medications Generic Name Dose Route Start Last Admin Trade Name Freq PRN Reason Stop Dose Admin Acetaminophen 650 mg 06/25/17 20:12 Tylenol Tab PO Q6HR PRN Fever and/ or Mild Pain Acetaminophen/Codeine Phosphate 1 each 06/25/17 14:24 Tylenol #3 PO Q3HR PRN Pain Scale 1 to 5 Acetaminophen/Codeine Phosphate 2 each 06/25/17 14:24 Tylenol #3 PO Q3HR PRN Pain Scale 6 to 10 Albuterol/Ipratropium 3 ml 06/26/17 08:00 06/27/17 20:03 Duoneb 0.5 Mg-3 Mg/3 Ml Soln INHALATION 3 ml RT-QID MAGO Administration Albuterol/Ipratropium 3 ml 06/25/17 23:01 06/25/17 23:05 Duoneb 0.5 Mg-3 Mg/3 Ml Soln INHALATION 3 ml RT-Q2H PRN Administration Shortness Of Breath Or Wheezing Amiodarone HCl 400 mg 06/27/17 21:00 06/27/17 20:49 Cordarone PO 400 mg BID MAGO Administration Atorvastatin Calcium 20 mg 06/23/17 21:00 06/27/17 20:49 Lipitor PO 20 mg HS MAGO Administration Benzocaine/Menthol 1 each 06/25/17 14:23 Cepacol Lozenge MUCOUS MEM Q4HR PRN Sore Throat Calcium Carbonate/Glycine 500 mg 06/26/17 12:00 06/27/17 13:16 Tums PO 500 mg DAILY@1200 MAGO Administration Carbidopa/Levodopa 1 each 06/23/17 21:00 06/27/17 20:49 Sinemet 25-100 PO 1 each BID MAGO Administration Donepezil HCl 10 mg 06/23/17 21:00 06/27/17 20:49 Aricept PO 10 mg HS MAGO Administration Hydromorphone HCl 2 mg 06/26/17 04:00 Dilaudid PO Q4HR PRN Severe Pain Lactated Ringer's 1,000 mls @ 100 mls/hr 06/25/17 14:30 06/27/17 17:14 Lactated Ringers IV Not Given .Q10H MAGO Sodium Chloride 1,000 mls @ 75 mls/hr 06/25/17 14:30 06/27/17 17:14 Saline 0.9% IV Not Given .[id number] [facility] Insulin Aspart 0 unit 06/26/17 17:30 06/27/17 21:21 Novolog SQ 1 unit ACHS MAGO Administration Protocol Magnesium Hydroxide 2,400 mg 06/25/17 14:24 Milk Of Magnesia PO DAILY PRN Constipation Miscellaneous Information 1 each 06/25/17 22:39 Magnesium Per Protocol MISCELLANE DAILY PRN Per Protocol Protocol Miscellaneous Information 1 each 06/25/17 22:39 Potassium Per Protocol MISCELLANE DAILY PRN Per Protocol Protocol Multivitamins 1 each 06/26/17 12:00 06/27/17 13:16 Theragran PO 1 each DAILY@1200 MAGO Administration Naloxone HCl 0.2 mg 06/25/17 14:24 Narcan IV Q2M PRN Opioid Reversal Ondansetron HCl 4 mg 06/23/17 16:07 06/27/17 17:26 Zofran IVP 4 mg Q8HR PRN Administration Nausea And Vomiting Oxybutynin Chloride 5 mg 06/23/17 21:00 06/27/17 20:49 Ditropan PO 5 mg BID MAGO Administration Pantoprazole Sodium 40 mg 06/27/17 09:45 06/27/17 13:16 Protonix PO 40 mg [id number] MAGO Administration Senna/Docusate Sodium 2 each 06/25/17 21:00 06/27/17 20:49 Senokot-S PO 2 each HS MAGO Administration Tramadol HCl 50 mg 06/25/17 20:11 06/26/17 05:13 Ultram PO 50 mg QID PRN Administration Moderate Pain Warfarin Sodium 3 mg 06/26/17 18:00 06/26/17 17:28 Coumadin PO 3 mg TUTHSA MAGO Administration Warfarin Sodium 6 mg 06/25/17 18:00 06/27/17 17:25 Coumadin PO 6 mg SUMOWEFR MAGO Administration Objective - Vital Signs Vital signs: Vital Signs Temp 98.7 F 06/27/17 12:00 Pulse 97 06/27/17 16:29 Resp 20 06/27/17 15:00 BP 111/53 06/27/17 14:00 Pulse Ox 95 06/27/17 15:00 Intake & Output 06/26/17 06/27/17 06/27/17 18:59 06:59 18:59 Intake Total 784.419 370.496 240 Output Total 695 800 580 Balance 89.419 -429.504 -340 Weight 90.1 kg 90.1 kg Intake: IV 60 220 140 0.9 KVO 60 220 140 Intake, IV Titration 349.419 150.496 Amount Amiodarone 450 mg In 249.419 150.496 Dextrose 5% in Water 250 ml @ 1 MG/MIN 33.33 mls/ hr IV .Q7H31M [facility] Rx#: [id number] Dextrose 5% in Water 100 100 ml @ 618 mls/hr IV .Q10M ONE with Amiodarone 150 mg Rx#:[id number] Oral 375 Tube Feeding 100 Output: Urine 695 800 580 Other: Voiding Method Indwelling Catheter Indwelling Catheter Indwelling Catheter - Exam PHYSICAL EXAMINATION: Patient is lying in the bed comfortably, no acute distress, awake alert and oriented x1 .. HEENT: Normocephalic. Neck is supple. Pupils reactive. Nostrils clear. Oral cavity is moist. Ears reveal no drainage. Neck reveals no JVD, carotid bruits, or thyromegaly. CHEST EXAMINATION: Trachea is central. Symmetrical expansion. Lung galindo clear to auscultation and percussion. CARDIAC: Normal S1, S2 with no gallops. No murmurs ABDOMEN: Soft. Bowel sounds normal. No organomegaly. No abdominal bruits. Extremities: reveal no edema. No clubbing or cyanosis Neurologically awake, alert, oriented x1 with well-coordinated movements. No focal deficits noted Skin: No rash or skin lesions. Psychiatric: Coperative. Could not be assessed completely Musculoskeletal: Left femur surgical site bandaged. No leg swelling. - Labs CBC & Chem 7: 06/27/17 21:15 06/27/17 21:15 Labs: Abnormal Lab Results - Last 24 Hours (Table) 06/26/17 06/26/17 06/26/17 Range/Units 03:23 17:32 20:12 WBC (3.8-10.6) k/uL RBC (3.80-5.40) m/uL Hgb (11.4-16.0) gm/dL Hct (34.0-46.0) % Plt Count (150-450) k/uL Neutrophils # (1.3-7.7) k/uL Lymphocytes # (1.0-4.8) k/uL PT (9.0-12.0) sec INR (<1.2) Sodium (137-145) mmol/L BUN (7-17) mg/dL Glucose (74-99) mg/dL POC Glucose (mg/dL) 142 H (75-99) mg/dL Calcium (8.4-10.2) mg/dL Troponin I 0.062 H* 0.085 H* (0.000-0.034) ng/mL 06/27/17 06/27/17 06/27/17 Range/Units 03:23 03:23 07:37 WBC 16.1 H (3.8-10.6) k/uL RBC 2.66 L (3.80-5.40) m/uL Hgb 8.4 L (11.4-16.0) gm/dL Hct 24.2 L (34.0-46.0) % Plt Count 132 L (150-450) k/uL Neutrophils # 13.5 H (1.3-7.7) k/uL Lymphocytes # (1.0-4.8) k/uL PT (9.0-12.0) sec INR (<1.2) Sodium 132 L (137-145) mmol/L BUN 22 H (7-17) mg/dL Glucose 112 H (74-99) mg/dL POC Glucose (mg/dL) 105 H (75-99) mg/dL Calcium 7.3 L (8.4-10.2) mg/dL Troponin I (0.000-0.034) ng/mL 06/27/17 06/27/17 06/27/17 Range/Units 09:48 12:24 12:37 WBC (3.8-10.6) k/uL RBC (3.80-5.40) m/uL Hgb (11.4-16.0) gm/dL Hct (34.0-46.0) % Plt Count (150-450) k/uL Neutrophils # (1.3-7.7) k/uL Lymphocytes # (1.0-4.8) k/uL PT 13.0 H (9.0-12.0) sec INR 1.4 H (<1.2) Sodium (137-145) mmol/L BUN (7-17) mg/dL Glucose (74-99) mg/dL POC Glucose (mg/dL) 113 H 151 H (75-99) mg/dL Calcium (8.4-10.2) mg/dL Troponin I (0.000-0.034) ng/mL 06/27/17 06/27/17 Range/Units 14:53 17:28 WBC (3.8-10.6) k/uL RBC 2.18 L (3.80-5.40) m/uL Hgb 7.0 L* (11.4-16.0) gm/dL Hct 19.8 L* (34.0-46.0) % Plt Count 147 L (150-450) k/uL Neutrophils # 9.1 H (1.3-7.7) k/uL Lymphocytes # 0.6 L (1.0-4.8) k/uL PT (9.0-12.0) sec INR (<1.2) Sodium (137-145) mmol/L BUN (7-17) mg/dL Glucose (74-99) mg/dL POC Glucose (mg/dL) 131 H (75-99) mg/dL Calcium (8.4-10.2) mg/dL Troponin I (0.000-0.034) ng/mL Microbiology - Last 24 Hours (Table) 06/25/17 21:30 Blood Culture - Preliminary Blood No Growth after 24 hours 06/25/17 20:50 Blood Culture - Preliminary Blood No Growth after 24 hours Assessment and Plan Assessment: Atrial fibrillation with rapid ventricular rate. New-onset Status post fall Left Intertrochanteric femoral hip fracture. Underwent intertrochanteric screw placement on 06/25/2017 Parkinson's disease Dementia Chronic urinary incontinence Chronic pulmonary embolism on Coumadin Moderate aortic stenosis Osteoporosis and chronic gait dysfunction DVT prophylaxis patient is already on Coumadin Labs: Patient was started on amiodarone drip. Changed to oral. Currently in sinus rhythm. Patient be continued on pain medications and bowel regimen. Encourage ambulation. Coumadin can be restarted. Otherwise we will continue the home medications and further recommendations based on the clinical course. Time with Patient: Greater than 30
[2017-06-27] MEDS ORDERED: POTASSIUM CHLORIDE 20 MEQ in WATER FOR INJECTION 1 100ML.BAG IVPB ONE (22:50)
[2017-06-28] MEDS: ACETAMINOPHEN TAB 325 MG TAB PO PRN ×2 (02:18→16:08)
[2017-06-28] MEDS: LACTATED RINGERS 1,000 ML IV SCH (03:47)
[2017-06-28] MEDS: INSULIN ASPART 100 UNIT/ML 1 ML 10 ML VIAL SQ SCH ×4 (06:40→21:05)
[2017-06-28 06:41] LABS: Glucose,Whole Blood 98 mg/dL (75-99)
[2017-06-28] MEDS: PANTOPRAZOLE 40 MG TABLET PO SCH (06:57)
[2017-06-28] MEDS: IPRATROPIUM-ALBUTEROL 3 ML NEB INHALATION SCH ×4 (08:23→20:29)
[2017-06-28 08:38] LABS: Basophils % (A) 0 %; Eosinophils % (A) 1 %; HCT 24.7 % (34.0-46.0); HGB 8.3 gm/dL (11.4-16.0); Lymphocytes # (A) 0.8 k/uL (1.0-4.8); Lymphocytes % (A) 13 %; MCH 30.9 pg (25.0-35.0); MCHC 33.7 g/dL (31.0-37.0); MCV 91.5 fL (80.0-100.0); Mean Platelet Volume 8.9; Monocytes # (A) 0.4 k/uL (0-1.0); Monocytes % (A) 6 %; Neutrophils # (A) 4.9 k/uL (1.3-7.7); Neutrophils % (A) 79 %; Platelet Count 145 k/uL (150-450); RDW 13.4 % (11.5-15.5); WBC 6.2 k/uL (3.8-10.6)
[2017-06-28 08:42] LABS: INR 1.5 (<1.2); Prothrombin Time 13.7 sec (9.0-12.0)
[2017-06-28] MEDS: AMIODARONE 200 MG TAB PO SCH ×2 (08:45→20:54)
[2017-06-28] MEDS: CARBIDOPA-LEVODOPA 25-100 MG 1 EACH TAB PO SCH ×2 (08:45→20:54)
[2017-06-28] MEDS: OXYBUTYNIN CHLORIDE 5 MG TAB PO SCH ×2 (08:47→20:54)
[2017-06-28 09:20] LABS: Calcium 6.9 mg/dL (8.4-10.2); Potassium 3.7 mmol/L (3.5-5.1)
--- NOTE | 2017-06-28 09:40 | CDI ---
Last Revision, February 2017 Documentation Clarification Form Date: 06/28/17 From: Christa Jackson RN Admit Date: 06/23/2017 3:39:00 PM Patient Name: Ivon Easton Visit Number: [id number] ATTENTION: The Clinical Documentation Specialists (CDI) and [facility] Coding Staff appreciate your assistance in clarifying documentation. Please respond to the clarification below the line at the bottom and electronically sign. The CDI & [facility] Coding staff will review the response and follow-up if needed. Please note: Queries are made part of the Legal Health Record. If you have any questions, please contact the author of this message via ITS. Dr. Caesar Jones, Atrial Fibrillation is documented in the chart 06/26 - 06/27 Patients Admitting Diagnosis: left femur intertrochanteric hip fracture, status post fall Post-Operative Diagnosis: same Procedure performed: intertrochanteric hip screw placement, use of fluoroscopic guidance, closed reduction 06/26 PN states New onset a fib, 07/01 PN states pt. developed a fib with rvr. PN states patient transferred to chair went into a fib, History/Risk Factors: uses walker, parkinsons, urinary incontinence, dementia, pe, osteoporosis, breast ca , mini stroke a fib on Coumadin Clinical Indicators: Treatment: Move to ICU Consults: Cardiology Amiodarone drip started In order to accurately reflect this patients severity of illness, please clarify if the Atrial Fibrillation diagnosis is: An expected post-procedural or post-surgical condition; Integral to the procedure; Inherent to the procedure; A Fib secondary to underlying medical condition An unexpected post-procedural or post-surgical condition related to surgical care; Other, please specify possible cause if known: Unable to determine: Please continue to document in your progress notes, under the line below and/or in the discharge summary in order to capture severity of illness and risk of mortality. Include clinical findings that support your diagnosis. MTDD
--- NOTE | 2017-06-28 10:43 | P.PN ---
Progress Note - Text Progress Note Date: 06/28/17 Postoperative day #3 Patient is seen and examined today at bedside. She is having some difficulty answering questions though she does know her name and where she is she is somewhat confused as to the date. She knows that she has a hip fracture in the distal radius or some pain she knows that she had surgery for her hip fracture. She has not really been out of bed. She is not complaining of chest pain at present. She denies any shortness of breath. The patient has some pain around the surgical site as expected. Pain is being controlled with medication. Physical Exam Afebrile with stable vital signs Abdomen is soft nontender. Chest has good excursion deep and space expiration The incision site is clean dry and intact. No erythema there is no purulence. Her left thigh does not have significant swelling. There is no obvious fluid collection. Her thighs soft. Her calf are nontender. She has sustained dorsiflexion though she moves very gingerly and has difficulty following commands. She has some pain with passive range of motion or hip. Extremities have not had neurologic change from prior to surgery in terms of her extremities. she is a bit more confused than she was prior to her surgery. Calves and thighs were soft nontender without evidence of DVT. Assessment/Plan Postoperative day #3 status post internal fixation with intramedullary hip screw of left hip for her intertrochanteric femur fracture New-onset atrial fibrillation Anemia Patient is progressing very slowly from the surgery. Her hip seems to be healing appropriately but she had new onset of atrial fibrillation and subsequently had further workup and treatment for this. Her heart rate appears to be stabilizing and her vital signs. Her heart rate appears to be Regular at this point She was anemic probably due to chronic disease as well as her acute blood loss from her injury and her surgery and she received a unit of blood. She'll continue to have this monitored closely The patient has some confusion and it is difficult for her to mobilize and follow instructions. Hopefully she'll be able to improve her mobility with physical therapy. She should remain nonweightbearing on left lower extremity We will continue to increase the patient's mobilization with therapy nonweightbearing left lower extremity. We will continue pain control with oral or IV medications. She'll continue medical management for her multiple medical issues including her neutral fibrillation and anemia which are acute new changes for her at this admission. We'll continue to follow patient closely.
[2017-06-28 11:17] LABS: Glucose,Whole Blood 106 mg/dL (75-99)
[2017-06-28] MEDS: MULTIVITAMINS, THERA 1 EACH TAB PO SCH (11:18)
[2017-06-28] MEDS: CALCIUM CARBONATE 500 MG CHEWABLE PO SCH (11:18)
[2017-06-28] MEDS: SODIUM CHLORIDE 0.9% 1,000 ML IV SCH ×2 (11:19→23:09)
--- NOTE | 2017-06-28 12:57 | P.PN ---
Subjective Progress Note Date: 06/28/17 This is a pleasant 86-year-old female with past medical history significant for Parkinson's disease and hyperlipidemia, history of PE on Auralgan today coagulation with Coumadin who underwent left hip surgery. Cardiology was asked to see the patient because she developed atrial fibrillation with rapid ventricular response. This morning she continues to be in a normal sinus rhythm. Blood pressure 106/50, heart rate in the 70s. She did have a temperature this morning of 100.3. White blood cell count 6.2, hemoglobin 8.3, her hemoglobin last evening with 6.9. Platelet count 145. INR 1.5. Sodium 132, potassium 3.7, BUN 19, creatinine 0.9. Objective - Vital Signs Vital signs: Vital Signs Temp 98.3 F 06/28/17 12:00 Pulse 98 06/28/17 12:00 Resp 16 06/28/17 12:00 BP 106/56 06/28/17 12:00 Pulse Ox 98 06/28/17 12:00 Intake & Output 06/27/17 06/28/17 06/28/17 18:59 06:59 18:59 Intake Total 360 160 850 Output Total 955 865 175 Balance -595 -705 675 Weight 115.5 kg Intake: IV 260 160 0.9 KVO 260 160 Oral 540 Tube Feeding 100 Blood Product 0 310 Rc As-1 Unit 0 310 [id number] Output: Urine 955 865 175 Uretheral ([place]) 175 Other: Voiding Method Indwelling Catheter Indwelling Catheter Indwelling Catheter - Exam PHYSICAL EXAMINATION: HEENT: Head is atraumatic, normocephalic. Pupils equal, round. Neck is supple. There is no elevated jugular venous pressure. HEART EXAMINATION: Heart S1 S2 1 systolic murmur is heard. CHEST EXAMINATION: Lungs are clear to auscultation and precussion. No chest wall tenderness is noted on palpation or with deep breathing. ABDOMEN: Soft, nontender. Bowel sounds are heard. No organomegaly noted. EXTREMITIES: 2+ peripheral pulses with no evidence of peripheral edema and no calf tenderness noted. Left femur surgical site bandaged NEUROLOGIC patient is awake, alert and oriented -1. . - Labs CBC & Chem 7: 06/28/17 08:22 06/28/17 08:22 Labs: Abnormal Lab Results - Last 24 Hours (Table) 06/27/17 06/27/17 06/27/17 Range/Units 14:53 17:28 20:52 RBC 2.18 L (3.80-5.40) m/uL Hgb 7.0 L* (11.4-16.0) gm/dL Hct 19.8 L* (34.0-46.0) % Plt Count 147 L (150-450) k/uL Neutrophils # 9.1 H (1.3-7.7) k/uL Lymphocytes # 0.6 L (1.0-4.8) k/uL PT (9.0-12.0) sec INR (<1.2) Sodium (137-145) mmol/L Carbon Dioxide (22-30) mmol/L BUN (7-17) mg/dL POC Glucose (mg/dL) 131 H 165 H (75-99) mg/dL Calcium (8.4-10.2) mg/dL Crossmatch 06/27/17 06/28/17 06/28/17 Range/Units 21:15 01:40 08:22 RBC 2.18 L 2.70 L (3.80-5.40) m/uL Hgb 6.9 L* 8.3 L (11.4-16.0) gm/dL Hct 19.9 L* 24.7 L (34.0-46.0) % Plt Count 145 L (150-450) k/uL Neutrophils # 7.8 H (1.3-7.7) k/uL Lymphocytes # 0.5 L 0.8 L (1.0-4.8) k/uL PT (9.0-12.0) sec INR (<1.2) Sodium (137-145) mmol/L Carbon Dioxide (22-30) mmol/L BUN (7-17) mg/dL POC Glucose (mg/dL) (75-99) mg/dL Calcium (8.4-10.2) mg/dL Crossmatch See Detail 06/28/17 06/28/17 06/28/17 Range/Units 08:22 08:22 11:15 RBC (3.80-5.40) m/uL Hgb (11.4-16.0) gm/dL Hct (34.0-46.0) % Plt Count (150-450) k/uL Neutrophils # (1.3-7.7) k/uL Lymphocytes # (1.0-4.8) k/uL PT 13.7 H (9.0-12.0) sec INR 1.5 H (<1.2) Sodium 132 L (137-145) mmol/L Carbon Dioxide 20 L (22-30) mmol/L BUN 19 H (7-17) mg/dL POC Glucose (mg/dL) 106 H (75-99) mg/dL Calcium 6.9 L (8.4-10.2) mg/dL Crossmatch Microbiology - Last 24 Hours (Table) 06/25/17 21:30 Blood Culture - Preliminary Blood No Growth after 48 hours 06/25/17 20:50 Blood Culture - Preliminary Blood No Growth after 48 hours Assessment and Plan Plan: Assessment and plan #1 status post fall with left intertrochanteric femoral fracture. Status post intertrochanteric screw placement #2 paroxysmal atrial fibrillation, on Coumadin for anticoagulation, subtherapeutic. Remaining in normal sinus rhythm. #3 Parkinson's disease #4 moderate aortic stenosis, echo reveals normal left ventricular systolic function #5 history of PE and DVT, already on Coumadin. #6 acute blood loss anemia, likely secondary to surgery status post blood transfusion Plan We will continue amiodarone 400 mg by mouth twice a day and taper down the dose. Continue Coumadin to maintain an INR in the range of 2-2.5. DNP note has been reviewed, I agree with a documented findings and plan of care. Patient was seen and examined.
--- NOTE | 2017-06-28 15:14 | P.PN ---
Subjective Progress Note Date: 06/28/17 Principal diagnosis: New onset atrial fibrillation with hypotension This is an 86-year-old female who is status post left hip surgery. The patient had surgery yesterday. She was a rapid response team evaluation last night by one of my ICU nurses from my ICU. The patient was stable kept on the floor. Anyway sometime today she developed atrial fibrillation with rapid ventricular response which is new and also developed hypotension. She denies any chest pain or chest discomfort. She denies any shortness of breath difficulty breathing. She apparently was living by herself. The patient apparently a misstep and fell and fractured her left femur which was repaired yesterday by Dr. Quinn and orthopedics. The patient does have a history of Parkinson's disease stress urinary incontinence dementia pulmonary embolism made about 10 years ago and osteoporosis. The patient's a family member tells me that she was told that she needed lifelong anticoagulation because she had "thick blood" . Because the patient was again a rapid response team today, she was moved to the ICU for better management and evaluation. Cardiology is been consulted. The patient had an echocardiogram ordered. I did order Doppler of the left lower extremity. She did get Coumadin last night. I probably will put her through the diagnosis of PE by doing a CT angiogram or a VQ scan. She's can be treated anyway. On 06/27/2017 patient seen in follow-up in intensive care unit. He is awake alert, resting in bed, denies any acute distress, denies any chest pain, denies any dyspnea. Currently on 4 L per nasal cannula with O2 sat at 95%. Yesterday she was given a liter of IV 0.9 bolus for her hypotension, she was started on amiodarone drip for the new onset atrial fibrillation with rapid ventricular response, and had subsequently converted to sinus rhythm. She currently remains in sinus rhythm with a controlled rate, at 90-96 BPM. She is afebrile. Lung sounds are clear to auscultation, no rhonchi, no wheezes or rales noted. There is a harsh pansystolic murmur auscultated. Today's labs were reviewed, WBC is 16.1, hemoglobin is 8.4, sodium is 132, BUN is 22, creatinine is 1.0. Patient's calcium was 7.3, and troponins topped out at 0.107, and subsequently came down to 0.085 on this morning's labs. Patient denies any fever or chills. Her pain is reasonably controlled. She is tolerating oral intake, her maintenance IV 0.9 normal saline at 20 ML per hour, and amiodarone drip is infusing at 0.5 mg/m. She is making adequate amounts of urine, blood cultures are pending. No acute events overnight. No new chest x-rays today, the chest x -ray that was completed on 06/25/2017 showed no acute cardiopulmonary disease. On 06/28/2017 she is seen in follow-up on [facility] care unit. Resting in bed, in no apparent distress. She is compliant with her incentive spirometry, but her effort is poor, only able to achieve 400-500 today. Denies any dyspnea, denies any chest pain. Patient remains in sinus rhythm, with a controlled rate. She is currently on 3 L per nasal cannula with O2 sat 98%. Did have a low-grade fever this morning at 100.3F, currently afebrile. Denies any fever or chills, does have a congested nonproductive cough. Lung sounds are positive for some scattered rhonchi. Her IV amiodarone has been converted to oral Cordarone at 400 mg twice a day per cardiology, patient is anticoagulated with Coumadin, today's INR 1.5. Objective - Vital Signs Vital signs: Vital Signs Temp 98.3 F 06/28/17 12:00 Pulse 98 06/28/17 12:00 Resp 16 06/28/17 12:00 BP 106/56 06/28/17 12:00 Pulse Ox 98 06/28/17 12:00 Intake & Output 06/27/17 06/28/17 06/28/17 18:59 06:59 18:59 Intake Total 360 160 850 Output Total 955 865 175 Balance -595 -705 675 Weight 115.5 kg Intake: IV 260 160 0.9 KVO 260 160 Oral 540 Tube Feeding 100 Blood Product 0 310 Rc As-1 Unit 0 310 [id number] Output: Urine 955 865 175 Uretheral ([place]) 175 Other: Voiding Method Indwelling Catheter Indwelling Catheter Indwelling Catheter # Bowel Movements 1 - Exam No acute distress, oriented 3. Nasal O2 in place. Elderly female, resting in bed, in no acute distress, hard of hearing HEENT examination is grossly unremarkable. Mucous membranes are moist. No oral lesions. Neck supple. Full range of motion. No adenopathy thyromegaly or neck vein distention. Cardiovascular examination reveals regular rhythm rate. S1-S2 normal. No S3 or S4. There is a harsh pansystolic murmur, loudest over right sternal border second intercostal space. Breath sounds are equal. She does not take deep breaths. Lung sounds are positive for coarse rhonchi bilaterally Abdomen soft bowel sounds are heard. No masses or tenderness. Extremities are intact. No cyanosis clubbing or edema. Skin is without rash or lesion. Neurologic examination is brief but nonfoc - Labs CBC & Chem 7: 06/28/17 08:22 06/28/17 08:22 Labs: Abnormal Lab Results - Last 24 Hours (Table) 06/27/17 06/27/17 06/27/17 Range/Units 14:53 17:28 20:52 RBC 2.18 L (3.80-5.40) m/uL Hgb 7.0 L* (11.4-16.0) gm/dL Hct 19.8 L* (34.0-46.0) % Plt Count 147 L (150-450) k/uL Neutrophils # 9.1 H (1.3-7.7) k/uL Lymphocytes # 0.6 L (1.0-4.8) k/uL PT (9.0-12.0) sec INR (<1.2) Sodium (137-145) mmol/L Carbon Dioxide (22-30) mmol/L BUN (7-17) mg/dL POC Glucose (mg/dL) 131 H 165 H (75-99) mg/dL Calcium (8.4-10.2) mg/dL Crossmatch 06/27/17 06/28/17 06/28/17 Range/Units 21:15 01:40 08:22 RBC 2.18 L 2.70 L (3.80-5.40) m/uL Hgb 6.9 L* 8.3 L (11.4-16.0) gm/dL Hct 19.9 L* 24.7 L (34.0-46.0) % Plt Count 145 L (150-450) k/uL Neutrophils # 7.8 H (1.3-7.7) k/uL Lymphocytes # 0.5 L 0.8 L (1.0-4.8) k/uL PT (9.0-12.0) sec INR (<1.2) Sodium (137-145) mmol/L Carbon Dioxide (22-30) mmol/L BUN (7-17) mg/dL POC Glucose (mg/dL) (75-99) mg/dL Calcium (8.4-10.2) mg/dL Crossmatch See Detail 06/28/17 06/28/17 06/28/17 Range/Units 08:22 08:22 11:15 RBC (3.80-5.40) m/uL Hgb (11.4-16.0) gm/dL Hct (34.0-46.0) % Plt Count (150-450) k/uL Neutrophils # (1.3-7.7) k/uL Lymphocytes # (1.0-4.8) k/uL PT 13.7 H (9.0-12.0) sec INR 1.5 H (<1.2) Sodium 132 L (137-145) mmol/L Carbon Dioxide 20 L (22-30) mmol/L BUN 19 H (7-17) mg/dL POC Glucose (mg/dL) 106 H (75-99) mg/dL Calcium 6.9 L (8.4-10.2) mg/dL Crossmatch Microbiology - Last 24 Hours (Table) 06/25/17 21:30 Blood Culture - Preliminary Blood No Growth after 48 hours 06/25/17 20:50 Blood Culture - Preliminary Blood No Growth after 48 hours Assessment and Plan Plan: Assessment: New-onset atrial fibrillation with hypotension, which may relate to intrinsic cardiac disease and/or recurrent pulmonary embolism. Venous Doppler of bilateral lower extremities was negative for DVT, CTA chest could not be completed related to patient's abnormal renal function. Patient is already receiving anticoagulation in the form of Coumadin for her atrial fibrillation as well as part of the DVT prophylaxis post left hip closed reduction Recent left hip repair History of Parkinson's disease History of dementia Stress urinary incontinence. Previous history of pulmonary embolism, for which the patient was recommended to have a lifelong blood thinners, possibly related to hypercoagulable state History of aortic stenosis Osteoporosis Gait dysfunction Plan: Patient is stable from pulmonary standpoint, continue aggressive pulmonary toileting, continue incentive spirometry use. Denies any worsening dyspnea, denies any chest pain, remains in sinus rhythm with a controlled rate. Denies any acute complaints. Tolerating oral intake, on 3 L per nasal cannula O2 sat is 98%. Respirations are even and nonlabored, continue with nebulized treatments. Increase activity. From pulmonary/critical care standpoint patient remains stable, we will sign off at this time, and follow on as-needed basis. I performed a history & physical examination of the patient and discussed their management with my nurse practitioner, Lourdes Felix. I reviewed the nurse practitioner's note and agree with the documented findings and plan of care. Lung sounds are clear. The findings and the impression was discussed with the patient. I attest to the documentation by the nurse practitioner. Critical care time over 30 minutes Time with Patient: Less than 30
[2017-06-28 16:37] LABS: Glucose,Whole Blood 154 mg/dL (75-99)
--- NOTE | 2017-06-28 17:23 | XR ---
EXAMINATION TYPE: XR chest 1V DATE OF EXAM: 06/28/2017 COMPARISON: 06/27/2017 HISTORY: PICC line placement TECHNIQUE: Single frontal view of the chest is obtained. FINDINGS: There is right central venous PICC line catheter noted with the tip over the superior vena cava. There is no pneumothorax. There is mild pelvic congestion. There is patchy infiltrate and atel ectasis at the lung bases. Thoracic aorta is atheromatous. IMPRESSION: There is increasing infiltrate and atelectasis in the lower lobes and worse on the right side compared to yesterday. PICC line catheter appears in good position.
[2017-06-28] MEDS: WARFARIN 3 MG TAB PO SCH (17:33)
[2017-06-28] MEDS: DONEPEZIL 10 MG TAB PO SCH (20:54)
[2017-06-28] MEDS: ATORVASTATIN 20 MG TAB PO SCH (20:54)
[2017-06-28 20:56] LABS: Glucose,Whole Blood 101 mg/dL (75-99)
[2017-06-28] MEDS: SENNOSIDES-DOCUSATE SODIUM 1 EACH TAB PO SCH (21:06)
--- NOTE | 2017-06-28 22:40 | P.PN ---
Subjective Progress Note Date: 06/28/17 Principal diagnosis: Left Intertrochanteric femoral hip fracture, displaced at acute due to a fall New onset atrial fibrillation Patient is status post Left Intertrochanteric femoral hip fracture, displaced at acute due to a fall 06/25/2017 Patient underwent intertrochanteric hip screw placement with Use of fluoroscopic guidance. Closed reduction Patient is a poor historian but can answer simple questions. Currently denied any pain. No nausea vomiting or abdominal pain no commerce of chest pain or shortness of breath. 06/26/2017 Patient developed atrial fibrillation with rapid regular rate this morning. Patient was also hypotensive and felt generally weak and dizzy and lightheaded. fluid boluses was given. Patient was also to ICU for further management. Patient was started on amiodarone drip. Patient was converted back to sinus rhythm. Cardiology has seen the patient. Currently patient is in sinus rhythm. Patient was started back on antibiotic ablation with Coumadin. 2-D echocardiogram was ordered. Patient does have a history of moderate aortic stenosis. 06/27/2017 Patient currently maintained on sinus rhythm. Amiodarone changed to oral. Patient is being continued on Coumadin. Continue the current management and 2- D echocardiogram showed normal LV function and moderate aortic stenosis. Otherwise no fever no chills. No acute overnight issues. Patient is a poor historian. 06 28 2017 Patient denied any complaints of chest pain or shortness of breath. Able to answer simple questions. Otherwise patient remained on sinus rhythm. hemoglobin dropped to 6.9 last night. Underwent blood transfusion improved to 8.3 today morning. Patient is currently transferred to telemetry unit. Denied any chest pain. Patient denied a fever this morning T-max of 100.3. Chest x-ray showed increasing infiltrate compared to yesterday. Patient was started on antibiotics. Otherwise patient is being continued on amiodarone. On anticoagulation with Coumadin. INR 1.5 All other review of systems negative except the above. Current medications reviewed. Active Medications Generic Name Dose Route Start Last Admin Trade Name Freq PRN Reason Stop Dose Admin Acetaminophen 650 mg 06/25/17 20:12 06/28/17 16:08 Tylenol Tab PO 650 mg Q6HR PRN Administration Fever and/ or Mild Pain Acetaminophen/Codeine Phosphate 1 each 06/25/17 14:24 Tylenol #3 PO Q3HR PRN Pain Scale 1 to 5 Acetaminophen/Codeine Phosphate 2 each 06/25/17 14:24 Tylenol #3 PO Q3HR PRN Pain Scale 6 to 10 Albuterol/Ipratropium 3 ml 06/26/17 08:00 06/28/17 20:29 Duoneb 0.5 Mg-3 Mg/3 Ml Soln INHALATION 3 ml RT-QID MAGO Administration Albuterol/Ipratropium 3 ml 06/25/17 23:01 06/25/17 23:05 Duoneb 0.5 Mg-3 Mg/3 Ml Soln INHALATION 3 ml RT-Q2H PRN Administration Shortness Of Breath Or Wheezing Amiodarone HCl 400 mg 06/27/17 21:00 06/28/17 20:54 Cordarone PO 400 mg BID MAGO Administration Atorvastatin Calcium 20 mg 06/23/17 21:00 06/28/17 20:54 Lipitor PO 20 mg HS MAGO Administration Benzocaine/Menthol 1 each 06/25/17 14:23 Cepacol Lozenge MUCOUS MEM Q4HR PRN Sore Throat Calcium Carbonate/Glycine 500 mg 06/26/17 12:00 06/28/17 11:18 Tums PO 500 mg DAILY@1200 MAGO Administration Carbidopa/Levodopa 1 each 06/23/17 21:00 06/28/17 20:54 Sinemet 25-100 PO 1 each BID MAGO Administration Donepezil HCl 10 mg 06/23/17 21:00 06/28/17 20:54 Aricept PO 10 mg HS MAGO Administration Hydromorphone HCl 2 mg 06/26/17 04:00 Dilaudid PO Q4HR PRN Severe Pain Sodium Chloride 1,000 mls @ 75 mls/hr 06/25/17 14:30 06/28/17 11:19 Saline 0.9% IV 75 mls/hr .[id number] MAGO Administration Insulin Aspart 0 unit 06/26/17 17:30 06/28/17 21:05 Novolog SQ Not Given ACHS [facility] Protocol Magnesium Hydroxide 2,400 mg 06/25/17 14:24 06/28/17 09:44 Milk Of Magnesia PO 2,400 mg DAILY PRN Administration Constipation Miscellaneous Information 1 each 06/25/17 22:39 Magnesium Per Protocol MISCELLANE DAILY PRN Per Protocol Protocol Miscellaneous Information 1 each 06/25/17 22:39 Potassium Per Protocol MISCELLANE DAILY PRN Per Protocol Protocol Multivitamins 1 each 06/26/17 12:00 06/28/17 11:18 Theragran PO 1 each DAILY@1200 MAGO Administration Naloxone HCl 0.2 mg 06/25/17 14:24 Narcan IV Q2M PRN Opioid Reversal Ondansetron HCl 4 mg 06/23/17 16:07 06/27/17 17:26 Zofran IVP 4 mg Q8HR PRN Administration Nausea And Vomiting Oxybutynin Chloride 5 mg 06/23/17 21:00 06/28/17 20:54 Ditropan PO 5 mg BID MAGO Administration Pantoprazole Sodium 40 mg 06/27/17 09:45 06/28/17 06:57 Protonix PO 40 mg [id number] MAGO Administration Senna/Docusate Sodium 2 each 06/25/17 21:00 06/28/17 21:06 Senokot-S PO Not Given [facility] Tramadol HCl 50 mg 06/25/17 20:11 06/26/17 05:13 Ultram PO 50 mg QID PRN Administration Moderate Pain Warfarin Sodium 3 mg 06/26/17 18:00 06/28/17 17:33 Coumadin PO 3 mg TUTHSA MAGO Administration Warfarin Sodium 6 mg 06/25/17 18:00 06/27/17 17:25 Coumadin PO 6 mg SUMOWEFR MAGO Administration Objective - Vital Signs Vital signs: Vital Signs Temp 100.1 F H 06/28/17 16:00 Pulse 86 06/28/17 17:12 Resp 16 06/28/17 16:00 BP 109/52 06/28/17 16:00 Pulse Ox 97 06/28/17 16:00 Intake & Output 06/27/17 06/28/17 06/28/17 18:59 06:59 18:59 Intake Total 360 160 850 Output Total 955 865 175 Balance -595 -705 675 Weight 115.5 kg Intake: IV 260 160 0.9 KVO 260 160 Oral 540 Tube Feeding 100 Blood Product 0 310 Rc As-1 Unit 0 310 [id number] Output: Urine 955 865 175 Uretheral ([place]) 175 Other: Voiding Method Indwelling Catheter Indwelling Catheter Indwelling Catheter # Bowel Movements 1 - Exam PHYSICAL EXAMINATION: Patient is lying in the bed comfortably, no acute distress, awake alert and oriented x1 .. HEENT: Normocephalic. Neck is supple. Pupils reactive. Nostrils clear. Oral cavity is moist. Ears reveal no drainage. Neck reveals no JVD, carotid bruits, or thyromegaly. CHEST EXAMINATION: Trachea is central. Symmetrical expansion. Lung galindo minimal left basilar crackles. CARDIAC: Normal S1, S2 with no gallops. No murmurs ABDOMEN: Soft. Bowel sounds normal. No organomegaly. No abdominal bruits. Extremities: reveal no edema. No clubbing or cyanosis Neurologically awake, alert, oriented x1-2 with well-coordinated movements. No focal deficits noted Skin: No rash or skin lesions. Psychiatric: Coperative. Could not be assessed completely Musculoskeletal: Left femur surgical site bandaged. No leg swelling. - Labs CBC & Chem 7: 06/28/17 08:22 06/28/17 08:22 Labs: Abnormal Lab Results - Last 24 Hours (Table) 06/27/17 06/27/17 06/27/17 Range/Units 17:28 20:52 21:15 RBC 2.18 L (3.80-5.40) m/uL Hgb 6.9 L* (11.4-16.0) gm/dL Hct 19.9 L* (34.0-46.0) % Plt Count (150-450) k/uL Neutrophils # 7.8 H (1.3-7.7) k/uL Lymphocytes # 0.5 L (1.0-4.8) k/uL PT (9.0-12.0) sec INR (<1.2) Sodium (137-145) mmol/L Carbon Dioxide (22-30) mmol/L BUN (7-17) mg/dL POC Glucose (mg/dL) 131 H 165 H (75-99) mg/dL Calcium (8.4-10.2) mg/dL Crossmatch 06/28/17 06/28/17 06/28/17 Range/Units 01:40 08:22 08:22 RBC 2.70 L (3.80-5.40) m/uL Hgb 8.3 L (11.4-16.0) gm/dL Hct 24.7 L (34.0-46.0) % Plt Count 145 L (150-450) k/uL Neutrophils # (1.3-7.7) k/uL Lymphocytes # 0.8 L (1.0-4.8) k/uL PT (9.0-12.0) sec INR (<1.2) Sodium 132 L (137-145) mmol/L Carbon Dioxide 20 L (22-30) mmol/L BUN 19 H (7-17) mg/dL POC Glucose (mg/dL) (75-99) mg/dL Calcium 6.9 L (8.4-10.2) mg/dL Crossmatch See Detail 06/28/17 06/28/17 06/28/17 Range/Units 08:22 11:15 16:34 RBC (3.80-5.40) m/uL Hgb (11.4-16.0) gm/dL Hct (34.0-46.0) % Plt Count (150-450) k/uL Neutrophils # (1.3-7.7) k/uL Lymphocytes # (1.0-4.8) k/uL PT 13.7 H (9.0-12.0) sec INR 1.5 H (<1.2) Sodium (137-145) mmol/L Carbon Dioxide (22-30) mmol/L BUN (7-17) mg/dL POC Glucose (mg/dL) 106 H 154 H (75-99) mg/dL Calcium (8.4-10.2) mg/dL Crossmatch Microbiology - Last 24 Hours (Table) 06/25/17 21:30 Blood Culture - Preliminary Blood No Growth after 48 hours 06/25/17 20:50 Blood Culture - Preliminary Blood No Growth after 48 hours Assessment and Plan Assessment: Atrial fibrillation with rapid ventricular rate. New-onset. Rate controlled. Continued on amiodarone. Currently sinus rhythm. Status post fall Left Intertrochanteric femoral hip fracture. Underwent intertrochanteric screw placement on 06/25/2017 Bibasilar infiltrate and atelectasis. Right greater than left. Possible pneumonia gram-negative organism Parkinson's disease Dementia Chronic urinary incontinence Chronic pulmonary embolism on Coumadin Moderate aortic stenosis Osteoporosis and chronic gait dysfunction DVT prophylaxis patient is already on Coumadin Labs: Patient was started on amiodarone drip. Changed to oral. Currently in sinus rhythm. Patient will be be started on antibiotics in the form of Zosyn at this time. Pulmonary is following. Patient be continued on pain medications and bowel regimen. Encourage ambulation. Coumadin has been restarted. Otherwise we will continue the home medications and further recommendations based on the clinical course. Time with Patient: Greater than 30
[2017-06-28] MEDS: PIPERACILLIN-TAZOBACTAM 3.375 GM in DEXTROSE/WATER 1 50ML.BAG IVPB SCH (23:14)
[2017-06-29 06:10] LABS: Glucose,Whole Blood 116 mg/dL (75-99)
[2017-06-29] MEDS: PIPERACILLIN-TAZOBACTAM 3.375 GM in DEXTROSE/WATER 1 50ML.BAG IVPB SCH ×2 (06:13→14:27)
[2017-06-29] MEDS: INSULIN ASPART 100 UNIT/ML 1 ML 10 ML VIAL SQ SCH ×4 (06:16→21:18)
[2017-06-29] MEDS: PANTOPRAZOLE 40 MG TABLET PO SCH (06:19)
[2017-06-29 06:32] LABS: Basophils % (A) 0 %; Eosinophils % (A) 0 %; HCT 25.4 % (34.0-46.0); HGB 8.8 gm/dL (11.4-16.0); Lymphocytes # (A) 1.3 k/uL (1.0-4.8); Lymphocytes % (A) 20 %; MCH 31.3 pg (25.0-35.0); MCHC 34.7 g/dL (31.0-37.0); MCV 90.1 fL (80.0-100.0); Mean Platelet Volume 9.1; Monocytes # (A) 0.4 k/uL (0-1.0); Monocytes % (A) 6 %; Neutrophils # (A) 4.6 k/uL (1.3-7.7); Neutrophils % (A) 72 %; Platelet Count 173 k/uL (150-450); RBC 2.82 m/uL (3.80-5.40); RDW 13.8 % (11.5-15.5); WBC 6.3 k/uL (3.8-10.6)
[2017-06-29 06:46] LABS: INR 1.7 (<1.2)
[2017-06-29 06:55] LABS: Calcium 6.9 mg/dL (8.4-10.2)
[2017-06-29] MEDS: Acetaminophen-Codeine 300-30mg TAB PO PRN ×2 (08:08→18:34)
--- NOTE | 2017-06-29 08:28 | P.PN ---
Progress Note - Text Progress Note Date: 06/29/17 Patient is a very pleasant 86-year-old female who is seen and examined in elective care for further evaluation for her left hip. She is status post intramedullary nail fixation for left intertrochanteric hip fracture performed today, 06/25/2017. Patient was previously on [address] when she was transferred to bedside chair when she went into atrial fibrillation and RVR. She was transferred to the the ICU for treatment and evaluation. Nursing states she was able to spontaneously return to her baseline EKG settings. Patient was started on amiodarone drip in the ICU. She continues to be seen and examined by Dr. Holley in cardiology. She has been transitioned to oral amiodarone today. Yesterday she was able to transfer from the ICU to selective care. Nursing states she did have an episode of atrial fibrillation and RVR last night in selective care which spontaneously resolved. Patient is lying comfortably in bed. She states she has been experiencing some pain in her left hip. Nursing states her pain has been adequately controlled. Patient has been receiving Ultram, Tylenol #3, and Dilaudid as prescribed as needed for relief of her symptoms. Patient previously underwent venous ultrasound Doppler of the bilateral lower extremities yesterday which were negative for DVT. Per cardiology is documentation, they had planned to taper down amiodarone 400 mg. There also working to level the patient's INR level to a therapeutic range of 2- 2.5. Patient continues to be seen by Dr. Luz in medicine, Dr. Roberts in pulmonology, and Dr. Holley and Jayashree Newsome NP in cardiology. Patient was also started on Zosyn by medicine. Physical Exam Intramedullary Rodding for Intertrochanteric Fracture: Status post surgical day number 4 Patient is examined lying in bed in selective care Patient is awake and alert, and oriented 3; patient he indicates very well today Vital signs stable Good chest excursion with deep inspiration and expiration; patient currently on 3L O2 nasal cannula Lower extremity cuff in place on the right lower extremity Dressing of the left hip is clean, dry, and intact; no erythema, purulence, or signs of infection; Dermabond remains intact Some bruising around the surgical sites Some pain with palpation over the surgical sites Full range of motion of ankles bilaterally Dorsiflexion, plantarflexion, and extensor hallucis longus positive sustained bilaterally Neurovascularly intact bilateral lower extremities Pertinent studies taken on 06/26/2017: WBC 11.9 Hemoglobin 8.0 Troponin 0.107 Repeat troponin 0.085 Pertinent studies taken on 06/27/2017: INR 1.4 Pertinent studies taken on 06/29/2017: INR 1.7 Hemoglobin 8.8 WBC 6.3 Assessment: Status post left intramedullary nail fixation for left intertrochanteric hip fracture Status post fall Left hip pain Recent episode of atrial fibrillation and RVR History of pulmonary embolism Plan: 1. We will continue with our treatment plan as previously set forth. Patient to remain nonweightbearing on the left lower extremity; patient may work with physical therapy to increase mobility and ambulation; patient will plan to be transferred to a bedside chair today 2. Keep dressing over the left hip clean, dry, and intact 3. Discontinue Johnston catheter when patient is able to increase mobility and ambulation 4. Continue pain control 5. Continue with anticoagulation therapy as previously prescribed prior to surgical intervention; medicine to monitor again anticoagulation therapy 6. Patient will continue be seen and examined by Dr. Holley in cardiology for treatment in regards to her recent atrial fibrillation and RVR 6. Dr. Luz in Medicine and Dr. Roberts in pulmonology to continue following the patient for her other medical diagnosis 7. We'll continue to follow the patient closely; patient is planning for discharge to [facility] rehabilitation facility when cleared for discharge; patient will most likely remain in the hospital over the weekend 8. Patient can follow-up with See Uribe PA-C or Dr. Andrew Zambrano at [facility] in 2-3 weeks following discharge
[2017-06-29] MEDS: IPRATROPIUM-ALBUTEROL 3 ML NEB INHALATION SCH ×4 (08:50→20:13)
--- NOTE | 2017-06-29 08:52 | CDI ---
Last Revision, February 2017 Documentation Clarification Form Date: 06/29/17 From: Christa Jackson RN Admit Date: 06/23/2017 3:39:00 PM Patient Name: Ivon Easton Visit Number: [id number] ATTENTION: The Clinical Documentation Specialists (CDI) and [facility] Coding Staff appreciate your assistance in clarifying documentation. Please respond to the clarification below the line at the bottom and electronically sign. The CDI & [facility] Coding staff will review the response and follow-up if needed. Please note: Queries are made part of the Legal Health Record. If you have any questions, please contact the author of this message via ITS. Dr. Caesar Jones, History/Risk Factors: cancer, hyperlipidemia, htn, Parkinson, pe, mini strokes presented with hip pain due to fall had surgery Clinical Indicators: WBC on admission 12.5 Lactic acid: 2.4 Blood cultures: Preliminary neg. Vitals signs on admission: T 98.0, P 84, R 20, 132/67, 98% RA Running temperature off and on between 99.4 - 100.3 Treatment: Antibiotics: IV Cefazolin, IV Piperacillin IV Bolus: x2 monitor labs In your professional opinion, please clarify if these findings signify one of the following conditions, whether the condition is POA, and cause, if known: Sepsis ruled out Sepsis ruled in Other, please specify Unable to determine Present on Admission: Yes No Please continue to document in your progress notes, under the line below and/ or in the discharge summary in order to capture severity of illness and risk of mortality. Include clinical findings that support your diagnosis. no sepsis MTDD
[2017-06-29] MEDS: AMIODARONE 200 MG TAB PO SCH ×2 (09:24→21:17)
[2017-06-29] MEDS: CARBIDOPA-LEVODOPA 25-100 MG 1 EACH TAB PO SCH ×2 (09:24→21:17)
[2017-06-29] MEDS: OXYBUTYNIN CHLORIDE 5 MG TAB PO SCH ×2 (09:24→21:17)
--- NOTE | 2017-06-29 10:30 | P.PN ---
Subjective Progress Note Date: 06/29/17 Principal diagnosis: Hypotension This is a pleasant 86-year-old female patient with a past medical history significant for Parkinson disease as well as history of PE was admitted to the hospital after she fell at home and fractured her left hip. She did undergo left hip surgery. Postoperatively, the patient developed A. fib with RVR and she was converted to normal sinus mechanism. She was started on amiodarone IV and subsequently amiodarone by mouth because her blood pressure was marginal. She was maintaining normal sinus mechanism to last night when she had another episode of A. fib with RVR and converted to normal sinus mechanism. She is on oral anticoagulation was Coumadin. I am going to add small dose of metoprolol to the amiodarone by mouth trying to keep the patient in normal sinus mechanism. Objective - Vital Signs Vital signs: Vital Signs Temp 97.5 F L 06/29/17 08:00 Pulse 92 06/29/17 09:04 Resp 18 06/29/17 08:06 BP 108/56 06/29/17 09:04 Pulse Ox 97 06/29/17 08:06 Intake & Output 06/28/17 06/29/17 06/29/17 18:59 06:59 18:59 Intake Total 1090 650 720 Output Total 175 675 Balance 915 -25 720 Weight 103 kg Intake: Intake, IV Titration 650 Amount Piperacillin-Tazobactam 3 50 .375 gm In Dextrose/Water 1 50ml.bag @ 12.5 mls/hr IVPB Q8H [facility] Rx#: [id number] Sodium Chloride 0.9% 1, 600 000 ml @ 75 mls/hr IV . [id number] [facility] Rx#:[id number] Oral 780 720 Blood Product 310 Rc As-1 Unit 310 [id number] Output: Urine 175 675 Uretheral (Johnston) 175 Other: Voiding Method Indwelling Catheter Indwelling Catheter Indwelling Catheter # Voids 1 # Bowel Movements 1 - Constitutional General appearance: Present: no acute distress - Respiratory Respiratory: bilateral: diminished - Cardiovascular Rhythm: regular Heart sounds: normal: S1, S2 - Labs CBC & Chem 7: 06/29/17 05:33 06/29/17 05:33 Labs: Abnormal Lab Results - Last 24 Hours (Table) 06/28/17 06/28/17 06/28/17 Range/Units 11:15 16:34 20:54 RBC (3.80-5.40) m/uL Hgb (11.4-16.0) gm/dL Hct (34.0-46.0) % PT (9.0-12.0) sec INR (<1.2) Sodium (137-145) mmol/L BUN (7-17) mg/dL Glucose (74-99) mg/dL POC Glucose (mg/dL) 106 H 154 H 101 H (75-99) mg/dL Calcium (8.4-10.2) mg/dL 06/29/17 06/29/17 06/29/17 Range/Units 05:33 05:33 05:33 RBC 2.82 L (3.80-5.40) m/uL Hgb 8.8 L (11.4-16.0) gm/dL Hct 25.4 L (34.0-46.0) % PT 16.0 H (9.0-12.0) sec INR 1.7 H (<1.2) Sodium 136 L (137-145) mmol/L BUN 19 H (7-17) mg/dL Glucose 101 H (74-99) mg/dL POC Glucose (mg/dL) (75-99) mg/dL Calcium 6.9 L (8.4-10.2) mg/dL 06/29/17 Range/Units 06:07 RBC (3.80-5.40) m/uL Hgb (11.4-16.0) gm/dL Hct (34.0-46.0) % PT (9.0-12.0) sec INR (<1.2) Sodium (137-145) mmol/L BUN (7-17) mg/dL Glucose (74-99) mg/dL POC Glucose (mg/dL) 116 H (75-99) mg/dL Calcium (8.4-10.2) mg/dL Microbiology - Last 24 Hours (Table) 06/25/17 21:30 Blood Culture - Preliminary Blood No Growth after 72 hours 06/25/17 20:50 Blood Culture - Preliminary Blood No Growth after 72 hours Assessment and Plan Assessment: Assessment #1 left hip fracture and status post surgery #2 atrial fibrillation with a rapid ventricular response and the patient converted to normal sinus mechanism. This is a new diagnosis to the patient #3 hypotension #4 anemia with a hemoglobin around 8 #5 history of PE on oral anticoagulation Plan #1 add metoprolol to the amiodarone by mouth #2 continue oral anticoagulation with Coumadin
[2017-06-29] MEDS: SODIUM CHLORIDE 0.9% 1,000 ML IV SCH ×3 (10:35→15:45)
[2017-06-29 11:52] LABS: Glucose,Whole Blood 126 mg/dL (75-99)
[2017-06-29] MEDS: CALCIUM CARBONATE 500 MG CHEWABLE PO SCH (12:03)
[2017-06-29] MEDS: MULTIVITAMINS, THERA 1 EACH TAB PO SCH (12:03)
[2017-06-29 16:21] LABS: Glucose,Whole Blood 103 mg/dL (75-99)
[2017-06-29] MEDS: WARFARIN 3 MG TAB PO SCH (17:19)
[2017-06-29] MEDS: guaiFENesin 600 MG TABLET.ER PO SCH (17:19)
[2017-06-29 21:02] LABS: Glucose,Whole Blood 427 mg/dL (75-99)
[2017-06-29] MEDS: ATORVASTATIN 20 MG TAB PO SCH (21:17)
[2017-06-29] MEDS: DONEPEZIL 10 MG TAB PO SCH (21:17)
[2017-06-29] MEDS: SENNOSIDES-DOCUSATE SODIUM 1 EACH TAB PO SCH (21:17)
[2017-06-30] MEDS: METOPROLOL TARTRATE 12.5 MG TAB PO SCH ×3 (00:26→21:41)
[2017-06-30] MEDS: PIPERACILLIN-TAZOBACTAM 3.375 GM in DEXTROSE/WATER 1 50ML.BAG IVPB SCH ×4 (00:40→21:40)
[2017-06-30 06:39] LABS: Basophils # (A) 0.1 k/uL (0-0.2); Basophils % (A) 1 %; Eosinophils % (A) 1 %; HCT 26.4 % (34.0-46.0); HGB 8.6 gm/dL (11.4-16.0); Lymphocytes # (A) 1.4 k/uL (1.0-4.8); Lymphocytes % (A) 21 %; MCH 30.4 pg (25.0-35.0); MCHC 32.8 g/dL (31.0-37.0); MCV 92.9 fL (80.0-100.0); Mean Platelet Volume 8.8; Monocytes # (A) 0.4 k/uL (0-1.0); Monocytes % (A) 6 %; Neutrophils # (A) 4.5 k/uL (1.3-7.7); Neutrophils % (A) 69 %; Platelet Count 199 k/uL (150-450); RBC 2.84 m/uL (3.80-5.40); WBC 6.5 k/uL (3.8-10.6)
[2017-06-30 06:40] LABS: INR 3.1 (<1.2); Prothrombin Time 27.8 sec (9.0-12.0)
[2017-06-30] MEDS: INSULIN ASPART 100 UNIT/ML 1 ML 10 ML VIAL SQ SCH ×4 (06:43→21:55)
[2017-06-30 06:44] LABS: Glucose,Whole Blood 91 mg/dL (75-99)
[2017-06-30 06:45] LABS: Calcium 6.8 mg/dL (8.4-10.2)
[2017-06-30] MEDS: PANTOPRAZOLE 40 MG TABLET PO SCH (06:46)
[2017-06-30] MEDS: Acetaminophen-Codeine 300-30mg TAB PO PRN ×2 (06:50→21:40)
[2017-06-30] MEDS: IPRATROPIUM-ALBUTEROL 3 ML NEB INHALATION SCH ×4 (08:07→20:05)
[2017-06-30] MEDS: AMIODARONE 200 MG TAB PO SCH ×2 (08:36→21:40)
[2017-06-30] MEDS: guaiFENesin 600 MG TABLET.ER PO SCH ×2 (08:36→21:39)
[2017-06-30] MEDS: OXYBUTYNIN CHLORIDE 5 MG TAB PO SCH ×2 (08:37→21:40)
[2017-06-30] MEDS: CARBIDOPA-LEVODOPA 25-100 MG 1 EACH TAB PO SCH ×2 (08:37→21:39)
--- NOTE | 2017-06-30 09:38 | P.PN ---
Subjective Progress Note Date: 06/30/17 This is an 86-year-old female who is status post intramedullary nail fixation for left intratrochanteric hip fracture. This is postoperative day #5. The patient states her pain is well controlled today. Patient is being followed closely by cardiology and pulmonology for atrial fibrillation with RVR and history of pulmonary embolism. Patient has no new complaints today. Objective - Vital Signs Vital signs: Vital Signs Temp 98.5 F 06/30/17 08:00 Pulse 84 06/30/17 08:25 Resp 18 06/30/17 08:00 BP 101/49 06/30/17 08:00 Pulse Ox 100 06/30/17 08:00 Intake & Output 06/29/17 06/30/17 06/30/17 18:59 06:59 18:59 Intake Total 1400 770 200 Balance 1400 770 200 Weight 103 kg 119.5 kg Intake: Intake, IV Titration 120 290 Amount Piperacillin-Tazobactam 3 50 .375 gm In Dextrose/Water 1 50ml.bag @ 12.5 mls/hr IVPB Q8H [facility] Rx#: [id number] Sodium Chloride 0.9% 1, 120 240 000 ml @ 40 mls/hr IV . Q24H [facility] Rx#:[id number] Oral 1280 480 200 Other: Voiding Method Indwelling Catheter Indwelling Catheter Indwelling Catheter - Exam On exam patient is alert and oriented 3 lying in bed in no acute distress. Left lower extremity with dressing clean, dry and intact. Calf is soft and nontender to palpation. Left lower extremity is warm and well perfused. Neurovascular status and circulatory status are intact. - Labs CBC & Chem 7: 06/30/17 05:32 06/30/17 05:32 Labs: Abnormal Lab Results - Last 24 Hours (Table) 06/29/17 06/29/17 06/29/17 Range/Units 11:45 16:18 20:57 RBC (3.80-5.40) m/uL Hgb (11.4-16.0) gm/dL Hct (34.0-46.0) % PT (9.0-12.0) sec INR (<1.2) Sodium (137-145) mmol/L BUN (7-17) mg/dL POC Glucose (mg/dL) 126 H 103 H 427 H (75-99) mg/dL Calcium (8.4-10.2) mg/dL 06/30/17 06/30/17 06/30/17 Range/Units 05:32 05:32 05:32 RBC 2.84 L (3.80-5.40) m/uL Hgb 8.6 L (11.4-16.0) gm/dL Hct 26.4 L (34.0-46.0) % PT 27.8 H (9.0-12.0) sec INR 3.1 H (<1.2) Sodium 136 L (137-145) mmol/L BUN 19 H (7-17) mg/dL POC Glucose (mg/dL) (75-99) mg/dL Calcium 6.8 L (8.4-10.2) mg/dL Microbiology - Last 24 Hours (Table) 06/25/17 21:30 Blood Culture - Preliminary Blood No Growth after 96 hours 06/25/17 20:50 Blood Culture - Preliminary Blood No Growth after 96 hours Assessment and Plan (1) Fracture, intertrochanteric, left femur Current Visit: Yes Status: Acute Code(s): S72.142A - DISPLACED INTERTROCHANTERIC FRACTURE OF LEFT FEMUR, INIT SNOMED Code(s): 146817258 (2) Hip fracture Current Visit: Yes Status: Acute Code(s): S72.009A - FRACTURE OF UNSP PART OF NECK OF UNSP FEMUR, INIT SNOMED Code(s): 524838775 (3) Left hip pain Current Visit: Yes Status: Acute Code(s): M25.552 - PAIN IN LEFT HIP SNOMED Code(s): 38979046 (4) Status post fall Current Visit: Yes Status: Acute Code(s): Z91.81 - HISTORY OF FALLING SNOMED Code(s): 142005007 (5) Atrial fibrillation with RVR Current Visit: Yes Status: Acute Code(s): I48.91 - UNSPECIFIED ATRIAL FIBRILLATION SNOMED Code(s): 723560544092433 (6) History of pulmonary embolism Current Visit: Yes Status: Acute Code(s): Z86.711 - PERSONAL HISTORY OF PULMONARY EMBOLISM SNOMED Code(s): 156549662 Plan: 1. Nonweightbearing to left lower extremity. 2. Physical therapy for mobility and transfers. 3. Continue pain control and routine postoperative care. 4. Continue anticoagulation. 5. Appreciate input from cardiology, internal medicine, and pulmonology. 6. Patient is awaiting discharge to [facility] when medically cleared.
[2017-06-30] MEDS: MULTIVITAMINS, THERA 1 EACH TAB PO SCH (12:08)
[2017-06-30] MEDS: CALCIUM CARBONATE 500 MG CHEWABLE PO SCH (12:08)
[2017-06-30 12:09] LABS: Glucose,Whole Blood 112 mg/dL (75-99)
--- NOTE | 2017-06-30 14:35 | P.PN ---
Subjective Progress Note Date: 06/30/17 This is a pleasant 86-year-old female with past medical history significant for Parkinson's disease and hyperlipidemia, history of PE on Auralgan today coagulation with Coumadin who underwent left hip surgery. Cardiology was asked to see the patient because she developed atrial fibrillation with rapid ventricular response. This morning she continues to be in a normal sinus rhythm. Blood pressure 106/50, heart rate in the 70s. She did have a temperature this morning of 100.3. White blood cell count 6.2, hemoglobin 8.3, her hemoglobin last evening with 6.9. Platelet count 145. INR 1.5. Sodium 132, potassium 3.7, BUN 19, creatinine 0.9. 06/30/2017 Patient was seen and examined this morning, continues to be in normal sinus rhythm. Hemodynamically stable. Objective - Vital Signs Vital signs: Vital Signs Temp 97.5 F L 06/30/17 12:00 Pulse 76 06/30/17 12:00 Resp 20 06/30/17 12:00 BP 108/51 06/30/17 12:00 Pulse Ox 99 06/30/17 12:00 Intake & Output 06/29/17 06/30/17 06/30/17 18:59 06:59 18:59 Intake Total 1400 770 570 Balance 1400 770 570 Weight 103 kg 119.5 kg Intake: Intake, IV Titration 120 290 370 Amount Piperacillin-Tazobactam 3 50 50 .375 gm In Dextrose/Water 1 50ml.bag @ 12.5 mls/hr IVPB Q8H [facility] Rx#: [id number] Sodium Chloride 0.9% 1, 120 240 320 000 ml @ 40 mls/hr IV . Q24H [facility] Rx#:[id number] Oral 1280 480 200 Other: Voiding Method Indwelling Catheter Indwelling Catheter Indwelling Catheter - Exam PHYSICAL EXAMINATION: HEENT: Head is atraumatic, normocephalic. Pupils equal, round. Neck is supple. There is no elevated jugular venous pressure. HEART EXAMINATION: Heart S1 S2 1 systolic murmur is heard. CHEST EXAMINATION: Lungs are clear to auscultation and precussion. No chest wall tenderness is noted on palpation or with deep breathing. ABDOMEN: Soft, nontender. Bowel sounds are heard. No organomegaly noted. EXTREMITIES: 2+ peripheral pulses with no evidence of peripheral edema and no calf tenderness noted. Left femur surgical site bandaged NEUROLOGIC patient is awake, alert and oriented -1. . - Labs CBC & Chem 7: 06/30/17 05:32 06/30/17 05:32 Labs: Abnormal Lab Results - Last 24 Hours (Table) 06/29/17 06/29/17 06/30/17 Range/Units 16:18 20:57 05:32 RBC 2.84 L (3.80-5.40) m/uL Hgb 8.6 L (11.4-16.0) gm/dL Hct 26.4 L (34.0-46.0) % PT (9.0-12.0) sec INR (<1.2) Sodium (137-145) mmol/L BUN (7-17) mg/dL POC Glucose (mg/dL) 103 H 427 H (75-99) mg/dL Calcium (8.4-10.2) mg/dL 06/30/17 06/30/17 06/30/17 Range/Units 05:32 05:32 11:51 RBC (3.80-5.40) m/uL Hgb (11.4-16.0) gm/dL Hct (34.0-46.0) % PT 27.8 H (9.0-12.0) sec INR 3.1 H (<1.2) Sodium 136 L (137-145) mmol/L BUN 19 H (7-17) mg/dL POC Glucose (mg/dL) 112 H (75-99) mg/dL Calcium 6.8 L (8.4-10.2) mg/dL Microbiology - Last 24 Hours (Table) 06/25/17 21:30 Blood Culture - Preliminary Blood No Growth after 96 hours 06/25/17 20:50 Blood Culture - Preliminary Blood No Growth after 96 hours Assessment and Plan Plan: Assessment and plan #1 status post fall with left intertrochanteric femoral fracture. Status post intertrochanteric screw placement #2 paroxysmal atrial fibrillation, on Coumadin for anticoagulation, subtherapeutic. Remaining in normal sinus rhythm. #3 Parkinson's disease #4 moderate aortic stenosis, echo reveals normal left ventricular systolic function #5 history of PE and DVT, already on Coumadin. #6 acute blood loss anemia, likely secondary to surgery status post blood transfusion Plan We will decrease amiodarone to 200 mg daily, continue the rest of the patient's medications. Make a follow-up appointment in the office down the road. We will follow this patient with you now on an as-needed basis only, please don't hesitate to call with any questions. DNP note has been reviewed, I agree with a documented findings and plan of care. Patient was seen and examined.
[2017-06-30] MEDS: SODIUM CHLORIDE 0.9% 1,000 ML IV SCH (15:24)
[2017-06-30 16:42] LABS: Glucose,Whole Blood 117 mg/dL (75-99)
[2017-06-30] MEDS: WARFARIN 3 MG TAB PO SCH (17:13)
[2017-06-30] MEDS: SENNOSIDES-DOCUSATE SODIUM 1 EACH TAB PO SCH (21:08)
[2017-06-30] MEDS: DONEPEZIL 10 MG TAB PO SCH (21:39)
[2017-06-30] MEDS: ATORVASTATIN 20 MG TAB PO SCH (21:39)
[2017-06-30 21:54] LABS: Glucose,Whole Blood 198 mg/dL (75-99)
--- NOTE | 2017-07-01 00:52 | P.PN ---
Subjective Progress Note Date: 06/29/17 Principal diagnosis: Left Intertrochanteric femoral hip fracture, displaced at acute due to a fall New onset atrial fibrillation Patient is status post Left Intertrochanteric femoral hip fracture, displaced at acute due to a fall 06/25/2017 Patient underwent intertrochanteric hip screw placement with Use of fluoroscopic guidance. Closed reduction Patient is a poor historian but can answer simple questions. Currently denied any pain. No nausea vomiting or abdominal pain no commerce of chest pain or shortness of breath. 06/26/2017 Patient developed atrial fibrillation with rapid regular rate this morning. Patient was also hypotensive and felt generally weak and dizzy and lightheaded. fluid boluses was given. Patient was also to ICU for further management. Patient was started on amiodarone drip. Patient was converted back to sinus rhythm. Cardiology has seen the patient. Currently patient is in sinus rhythm. Patient was started back on antibiotic ablation with Coumadin. 2-D echocardiogram was ordered. Patient does have a history of moderate aortic stenosis. 06/27/2017 Patient currently maintained on sinus rhythm. Amiodarone changed to oral. Patient is being continued on Coumadin. Continue the current management and 2- D echocardiogram showed normal LV function and moderate aortic stenosis. Otherwise no fever no chills. No acute overnight issues. Patient is a poor historian. 06 28 2017 Patient denied any complaints of chest pain or shortness of breath. Able to answer simple questions. Otherwise patient remained on sinus rhythm. hemoglobin dropped to 6.9 last night. Underwent blood transfusion improved to 8.3 today morning. Patient is currently transferred to telemetry unit. Denied any chest pain. Patient denied a fever this morning T-max of 100.3. Chest x-ray showed increasing infiltrate compared to yesterday. Patient was started on antibiotics. Otherwise patient is being continued on amiodarone. On anticoagulation with Coumadin. INR 1.5 06/29/2017 Patient denied any complaints of chest pain or worsening shortness of breath. Otherwise patient is afebrile. No leukocytosis. Hemoglobin is fairly stable otherwise patient is being continued on amiodarone and low-dose metoprolol was added. Remains is sinus rhythm. Continued on anticoagulation. Cardiology is following. Encourage incentive spirometry and PTOT. Patient remains on antibiotics in the form of Zosyn. All other review of systems negative except the above. Current medications reviewed. Active Medications Generic Name Dose Route Start Last Admin Trade Name Freq PRN Reason Stop Dose Admin Acetaminophen 650 mg 06/25/17 20:12 06/28/17 16:08 Tylenol Tab PO 650 mg Q6HR PRN Administration Fever and/ or Mild Pain Acetaminophen/Codeine Phosphate 1 each 06/25/17 14:24 Tylenol #3 PO Q3HR PRN Pain Scale 1 to 5 Acetaminophen/Codeine Phosphate 2 each 06/25/17 14:24 Tylenol #3 PO Q3HR PRN Pain Scale 6 to 10 Albuterol/Ipratropium 3 ml 06/26/17 08:00 06/28/17 20:29 Duoneb 0.5 Mg-3 Mg/3 Ml Soln INHALATION 3 ml RT-QID MAGO Administration Albuterol/Ipratropium 3 ml 06/25/17 23:01 06/25/17 23:05 Duoneb 0.5 Mg-3 Mg/3 Ml Soln INHALATION 3 ml RT-Q2H PRN Administration Shortness Of Breath Or Wheezing Amiodarone HCl 400 mg 06/27/17 21:00 06/28/17 20:54 Cordarone PO 400 mg BID MAGO Administration Atorvastatin Calcium 20 mg 06/23/17 21:00 06/28/17 20:54 Lipitor PO 20 mg HS MAGO Administration Benzocaine/Menthol 1 each 06/25/17 14:23 Cepacol Lozenge MUCOUS MEM Q4HR PRN Sore Throat Calcium Carbonate/Glycine 500 mg 06/26/17 12:00 06/28/17 11:18 Tums PO 500 mg DAILY@1200 MAGO Administration Carbidopa/Levodopa 1 each 06/23/17 21:00 06/28/17 20:54 Sinemet 25-100 PO 1 each BID MAGO Administration Donepezil HCl 10 mg 06/23/17 21:00 06/28/17 20:54 Aricept PO 10 mg HS MAGO Administration Hydromorphone HCl 2 mg 06/26/17 04:00 Dilaudid PO Q4HR PRN Severe Pain Sodium Chloride 1,000 mls @ 75 mls/hr 06/25/17 14:30 06/28/17 11:19 Saline 0.9% IV 75 mls/hr .[id number] MAGO Administration Insulin Aspart 0 unit 06/26/17 17:30 06/28/17 21:05 Novolog SQ Not Given ACHS [facility] Protocol Magnesium Hydroxide 2,400 mg 06/25/17 14:24 06/28/17 09:44 Milk Of Magnesia PO 2,400 mg DAILY PRN Administration Constipation Miscellaneous Information 1 each 06/25/17 22:39 Magnesium Per Protocol MISCELLANE DAILY PRN Per Protocol Protocol Miscellaneous Information 1 each 06/25/17 22:39 Potassium Per Protocol MISCELLANE DAILY PRN Per Protocol Protocol Multivitamins 1 each 06/26/17 12:00 06/28/17 11:18 Theragran PO 1 each DAILY@1200 MAGO Administration Naloxone HCl 0.2 mg 06/25/17 14:24 Narcan IV Q2M PRN Opioid Reversal Ondansetron HCl 4 mg 06/23/17 16:07 06/27/17 17:26 Zofran IVP 4 mg Q8HR PRN Administration Nausea And Vomiting Oxybutynin Chloride 5 mg 06/23/17 21:00 06/28/17 20:54 Ditropan PO 5 mg BID MAGO Administration Pantoprazole Sodium 40 mg 06/27/17 09:45 06/28/17 06:57 Protonix PO 40 mg [id number]-[id number] MAGO Administration Senna/Docusate Sodium 2 each 06/25/17 21:00 06/28/17 21:06 Senokot-S PO Not Given [facility] Tramadol HCl 50 mg 06/25/17 20:11 06/26/17 05:13 Ultram PO 50 mg QID PRN Administration Moderate Pain Warfarin Sodium 3 mg 06/26/17 18:00 06/28/17 17:33 Coumadin PO 3 mg TUTHSA [facility] Administration Warfarin Sodium 6 mg 06/25/17 18:00 06/27/17 17:25 Coumadin PO 6 mg SUMOWEFR MAGO Administration Objective - Vital Signs Vital signs: Vital Signs Temp 97.3 F L 06/29/17 16:00 Pulse 84 06/29/17 20:26 Resp 18 06/29/17 16:00 BP 108/66 06/29/17 16:00 Pulse Ox 98 06/29/17 20:13 Intake & Output 06/29/17 06/29/17 06/30/17 06:59 18:59 06:59 Intake Total 650 1400 Output Total 675 Balance -25 1400 Weight 103 kg 103 kg Intake: Intake, IV Titration 650 120 Amount Piperacillin-Tazobactam 3 50 .375 gm In Dextrose/Water 1 50ml.bag @ 12.5 mls/hr IVPB Q8H MAGO Rx#: [id number] Sodium Chloride 0.9% 1, 600 120 000 ml @ 40 mls/hr IV . Q24H MAGO Rx#:[id number] Oral 1280 Output: Urine 675 Other: Voiding Method Indwelling Catheter Indwelling Catheter # Voids 1 - Exam PHYSICAL EXAMINATION: Patient is lying in the bed comfortably, no acute distress, awake alert and oriented x1 .. HEENT: Normocephalic. Neck is supple. Pupils reactive. Nostrils clear. Oral cavity is moist. Ears reveal no drainage. Neck reveals no JVD, carotid bruits, or thyromegaly. CHEST EXAMINATION: Trachea is central. Symmetrical expansion. Lung galindo minimal left basilar crackles. CARDIAC: Normal S1, S2 with no gallops. No murmurs ABDOMEN: Soft. Bowel sounds normal. No organomegaly. No abdominal bruits. Extremities: reveal no edema. No clubbing or cyanosis Neurologically awake, alert, oriented x1-2 with well-coordinated movements. No focal deficits noted Skin: No rash or skin lesions. Psychiatric: Coperative. Could not be assessed completely Musculoskeletal: Left femur surgical site bandaged. No leg swelling. - Labs CBC & Chem 7: 06/30/17 05:32 06/30/17 05:32 Labs: Abnormal Lab Results - Last 24 Hours (Table) 06/28/17 06/29/17 06/29/17 Range/Units 20:54 05:33 05:33 RBC 2.82 L (3.80-5.40) m/uL Hgb 8.8 L (11.4-16.0) gm/dL Hct 25.4 L (34.0-46.0) % PT (9.0-12.0) sec INR (<1.2) Sodium 136 L (137-145) mmol/L BUN 19 H (7-17) mg/dL Glucose 101 H (74-99) mg/dL POC Glucose (mg/dL) 101 H (75-99) mg/dL Calcium 6.9 L (8.4-10.2) mg/dL 06/29/17 06/29/17 06/29/17 Range/Units 05:33 06:07 11:45 RBC (3.80-5.40) m/uL Hgb (11.4-16.0) gm/dL Hct (34.0-46.0) % PT 16.0 H (9.0-12.0) sec INR 1.7 H (<1.2) Sodium (137-145) mmol/L BUN (7-17) mg/dL Glucose (74-99) mg/dL POC Glucose (mg/dL) 116 H 126 H (75-99) mg/dL Calcium (8.4-10.2) mg/dL 06/29/17 Range/Units 16:18 RBC (3.80-5.40) m/uL Hgb (11.4-16.0) gm/dL Hct (34.0-46.0) % PT (9.0-12.0) sec INR (<1.2) Sodium (137-145) mmol/L BUN (7-17) mg/dL Glucose (74-99) mg/dL POC Glucose (mg/dL) 103 H (75-99) mg/dL Calcium (8.4-10.2) mg/dL Microbiology - Last 24 Hours (Table) 06/25/17 21:30 Blood Culture - Preliminary Blood No Growth after 72 hours 06/25/17 20:50 Blood Culture - Preliminary Blood No Growth after 72 hours Assessment and Plan Assessment: Atrial fibrillation with rapid ventricular rate. New-onset. Rate controlled. Continued on amiodarone. Currently sinus rhythm. Status post fall Left Intertrochanteric femoral hip fracture. Underwent intertrochanteric screw placement on 06/25/2017 Bibasilar infiltrate and atelectasis. Right greater than left. Possible pneumonia gram-negative organism Parkinson's disease Dementia Chronic urinary incontinence Chronic pulmonary embolism on Coumadin Moderate aortic stenosis Osteoporosis and chronic gait dysfunction DVT prophylaxis patient is already on Coumadin Labs: Patient was started on amiodarone drip. Changed to oral. Currently in sinus rhythm. Added metoprolol low-dose. Patient will be be started on antibiotics in the form of Zosyn at this time. Pulmonary is following. Patient be continued on pain medications and bowel regimen. Encourage ambulation and incentive spirometry. Coumadin has been restarted. Otherwise we will continue the home medications and further recommendations based on the clinical course. Time with Patient: Greater than 30
--- NOTE | 2017-07-01 01:08 | P.PN ---
Subjective Progress Note Date: 06/30/17 Principal diagnosis: Left Intertrochanteric femoral hip fracture, displaced at acute due to a fall New onset atrial fibrillation Patient is status post Left Intertrochanteric femoral hip fracture, displaced at acute due to a fall 06/25/2017 Patient underwent intertrochanteric hip screw placement with Use of fluoroscopic guidance. Closed reduction Patient is a poor historian but can answer simple questions. Currently denied any pain. No nausea vomiting or abdominal pain no commerce of chest pain or shortness of breath. 06/26/2017 Patient developed atrial fibrillation with rapid regular rate this morning. Patient was also hypotensive and felt generally weak and dizzy and lightheaded. fluid boluses was given. Patient was also to ICU for further management. Patient was started on amiodarone drip. Patient was converted back to sinus rhythm. Cardiology has seen the patient. Currently patient is in sinus rhythm. Patient was started back on antibiotic ablation with Coumadin. 2-D echocardiogram was ordered. Patient does have a history of moderate aortic stenosis. 06/27/2017 Patient currently maintained on sinus rhythm. Amiodarone changed to oral. Patient is being continued on Coumadin. Continue the current management and 2- D echocardiogram showed normal LV function and moderate aortic stenosis. Otherwise no fever no chills. No acute overnight issues. Patient is a poor historian. 06 28 2017 Patient denied any complaints of chest pain or shortness of breath. Able to answer simple questions. Otherwise patient remained on sinus rhythm. hemoglobin dropped to 6.9 last night. Underwent blood transfusion improved to 8.3 today morning. Patient is currently transferred to telemetry unit. Denied any chest pain. Patient denied a fever this morning T-max of 100.3. Chest x-ray showed increasing infiltrate compared to yesterday. Patient was started on antibiotics. Otherwise patient is being continued on amiodarone. On anticoagulation with Coumadin. INR 1.5 06/29/2017 Patient denied any complaints of chest pain or worsening shortness of breath. Otherwise patient is afebrile. No leukocytosis. Hemoglobin is fairly stable otherwise patient is being continued on amiodarone and low-dose metoprolol was added. Remains is sinus rhythm. Continued on anticoagulation. Cardiology is following. Encourage incentive spirometry and PTOT. Patient remains on antibiotics in the form of Zosyn. 06/30/2017 Patient remained in sinus rhythm. Continued on metoprolol and amiodarone dose has been decreased to 20 mg daily. Continued on antibiotics. No leukocytosis. No fever no chills. Hemoglobin is fairly stable. No acute overnight issues. PTOT All other review of systems negative except the above. Current medications reviewed. Active Medications Generic Name Dose Route Start Last Admin Trade Name Freq PRN Reason Stop Dose Admin Acetaminophen 650 mg 06/25/17 20:12 06/28/17 16:08 Tylenol Tab PO 650 mg Q6HR PRN Administration Fever and/ or Mild Pain Acetaminophen/Codeine Phosphate 1 each 06/25/17 14:24 Tylenol #3 PO Q3HR PRN Pain Scale 1 to 5 Acetaminophen/Codeine Phosphate 2 each 06/25/17 14:24 Tylenol #3 PO Q3HR PRN Pain Scale 6 to 10 Albuterol/Ipratropium 3 ml 06/26/17 08:00 06/28/17 20:29 Duoneb 0.5 Mg-3 Mg/3 Ml Soln INHALATION 3 ml RT-QID MAGO Administration Albuterol/Ipratropium 3 ml 06/25/17 23:01 06/25/17 23:05 Duoneb 0.5 Mg-3 Mg/3 Ml Soln INHALATION 3 ml RT-Q2H PRN Administration Shortness Of Breath Or Wheezing Amiodarone HCl 400 mg 06/27/17 21:00 06/28/17 20:54 Cordarone PO 400 mg BID MAGO Administration Atorvastatin Calcium 20 mg 06/23/17 21:00 06/28/17 20:54 Lipitor PO 20 mg HS MAGO Administration Benzocaine/Menthol 1 each 06/25/17 14:23 Cepacol Lozenge MUCOUS MEM Q4HR PRN Sore Throat Calcium Carbonate/Glycine 500 mg 06/26/17 12:00 06/28/17 11:18 Tums PO 500 mg DAILY@1200 MAGO Administration Carbidopa/Levodopa 1 each 06/23/17 21:00 06/28/17 20:54 Sinemet 25-100 PO 1 each BID MAGO Administration Donepezil HCl 10 mg 06/23/17 21:00 06/28/17 20:54 Aricept PO 10 mg HS MAGO Administration Hydromorphone HCl 2 mg 06/26/17 04:00 Dilaudid PO Q4HR PRN Severe Pain Sodium Chloride 1,000 mls @ 75 mls/hr 06/25/17 14:30 06/28/17 11:19 Saline 0.9% IV 75 mls/hr .[id number] MAGO Administration Insulin Aspart 0 unit 06/26/17 17:30 06/28/17 21:05 Novolog SQ Not Given ACHS [facility] Protocol Magnesium Hydroxide 2,400 mg 06/25/17 14:24 06/28/17 09:44 Milk Of Magnesia PO 2,400 mg DAILY PRN Administration Constipation Miscellaneous Information 1 each 06/25/17 22:39 Magnesium Per Protocol MISCELLANE DAILY PRN Per Protocol Protocol Miscellaneous Information 1 each 06/25/17 22:39 Potassium Per Protocol MISCELLANE DAILY PRN Per Protocol Protocol Multivitamins 1 each 06/26/17 12:00 06/28/17 11:18 Theragran PO 1 each DAILY@1200 MAGO Administration Naloxone HCl 0.2 mg 06/25/17 14:24 Narcan IV Q2M PRN Opioid Reversal Ondansetron HCl 4 mg 06/23/17 16:07 06/27/17 17:26 Zofran IVP 4 mg Q8HR PRN Administration Nausea And Vomiting Oxybutynin Chloride 5 mg 06/23/17 21:00 06/28/17 20:54 Ditropan PO 5 mg BID MAGO Administration Pantoprazole Sodium 40 mg 06/27/17 09:45 06/28/17 06:57 Protonix PO 40 mg AC-BRKFST MAGO Administration Senna/Docusate Sodium 2 each 06/25/17 21:00 06/28/17 21:06 Senokot-S PO Not Given HS [facility] Tramadol HCl 50 mg 06/25/17 20:11 06/26/17 05:13 Ultram PO 50 mg QID PRN Administration Moderate Pain Warfarin Sodium 3 mg 06/26/17 18:00 06/28/17 17:33 Coumadin PO 3 mg TUTHSA MAGO Administration Warfarin Sodium 6 mg 06/25/17 18:00 06/27/17 17:25 Coumadin PO 6 mg SUMOWEFR MAGO Administration Objective - Vital Signs Vital signs: Vital Signs Temp 97.7 F 06/30/17 20:00 Pulse 79 06/30/17 20:15 Resp 16 06/30/17 20:15 BP 104/66 06/30/17 20:00 Pulse Ox 98 06/30/17 20:00 Intake & Output 06/30/17 06/30/17 07/01/17 06:59 18:59 06:59 Intake Total 770 810 Output Total 450 Balance 770 360 Weight 119.5 kg Intake: Intake, IV Titration 290 370 Amount Piperacillin-Tazobactam 3 50 50 .375 gm In Dextrose/Water 1 50ml.bag @ 12.5 mls/hr IVPB Q8H MAGO Rx#: [id number] Sodium Chloride 0.9% 1, 240 320 000 ml @ 40 mls/hr IV . Q24H MAGO Rx#:[id number] Oral 480 440 Output: Urine 450 Other: Voiding Method Indwelling Catheter Indwelling Catheter Indwelling Catheter # Bowel Movements 2 - Exam PHYSICAL EXAMINATION: Patient is lying in the bed comfortably, no acute distress, awake alert and oriented x1 .. HEENT: Normocephalic. Neck is supple. Pupils reactive. Nostrils clear. Oral cavity is moist. Ears reveal no drainage. Neck reveals no JVD, carotid bruits, or thyromegaly. CHEST EXAMINATION: Trachea is central. Symmetrical expansion. Lung galindo minimal left basilar crackles. CARDIAC: Normal S1, S2 with no gallops. No murmurs ABDOMEN: Soft. Bowel sounds normal. No organomegaly. No abdominal bruits. Extremities: reveal no edema. No clubbing or cyanosis Neurologically awake, alert, oriented x1-2 with well-coordinated movements. No focal deficits noted Skin: No rash or skin lesions. Psychiatric: Coperative. Could not be assessed completely Musculoskeletal: Left femur surgical site bandaged. No leg swelling. - Labs CBC & Chem 7: 06/30/17 05:32 06/30/17 05:32 Labs: Abnormal Lab Results - Last 24 Hours (Table) 06/30/17 06/30/17 06/30/17 Range/Units 05:32 05:32 05:32 RBC 2.84 L (3.80-5.40) m/uL Hgb 8.6 L (11.4-16.0) gm/dL Hct 26.4 L (34.0-46.0) % PT 27.8 H (9.0-12.0) sec INR 3.1 H (<1.2) Sodium 136 L (137-145) mmol/L BUN 19 H (7-17) mg/dL POC Glucose (mg/dL) (75-99) mg/dL Calcium 6.8 L (8.4-10.2) mg/dL 06/30/17 06/30/17 06/30/17 Range/Units 11:51 16:36 21:51 RBC (3.80-5.40) m/uL Hgb (11.4-16.0) gm/dL Hct (34.0-46.0) % PT (9.0-12.0) sec INR (<1.2) Sodium (137-145) mmol/L BUN (7-17) mg/dL POC Glucose (mg/dL) 112 H 117 H 198 H (75-99) mg/dL Calcium (8.4-10.2) mg/dL Microbiology - Last 24 Hours (Table) 06/25/17 21:30 Blood Culture - Preliminary Blood No Growth after 96 hours 06/25/17 20:50 Blood Culture - Preliminary Blood No Growth after 96 hours Assessment and Plan Assessment: Atrial fibrillation with rapid ventricular rate. New-onset. Rate controlled. Continued on amiodarone. Currently sinus rhythm. Status post fall Left Intertrochanteric femoral hip fracture. Underwent intertrochanteric screw placement on 06/25/2017 Bibasilar infiltrate and atelectasis. Right greater than left. Possible pneumonia gram-negative organism Parkinson's disease Dementia Chronic urinary incontinence Chronic pulmonary embolism on Coumadin Moderate aortic stenosis Osteoporosis and chronic gait dysfunction DVT prophylaxis patient is already on Coumadin Labs: Patient was started on amiodarone drip. Changed to oral. Currently in sinus rhythm. Added metoprolol low-dose. Patient will be be started on antibiotics in the form of Zosyn at this time. Pulmonary is following. Patient be continued on pain medications and bowel regimen. Encourage ambulation and incentive spirometry. Coumadin has been restarted. Otherwise we will continue the home medications and further recommendations based on the clinical course. Time with Patient: Greater than 30
[2017-07-01 06:12] LABS: Glucose,Whole Blood 95 mg/dL (75-99)
[2017-07-01] MEDS: INSULIN ASPART 100 UNIT/ML 1 ML 10 ML VIAL SQ SCH ×3 (06:16→16:54)
[2017-07-01 06:46] LABS: Prothrombin Time 60.5 sec (9.0-12.0)
[2017-07-01] MEDS: PIPERACILLIN-TAZOBACTAM 3.375 GM in DEXTROSE/WATER 1 50ML.BAG IVPB SCH ×2 (06:47→14:52)
[2017-07-01 06:49] LABS: INR 6.6 (<1.2)
[2017-07-01] MEDS: PANTOPRAZOLE 40 MG TABLET PO SCH (06:49)
[2017-07-01 07:12] LABS: Basophils # (A) 0.1 k/uL (0-0.2); Basophils % (A) 1 %; Eosinophils # (A) 0.1 k/uL (0-0.7); Eosinophils % (A) 1 %; HCT 27.4 % (34.0-46.0); HGB 9.1 gm/dL (11.4-16.0); Hypochromasia Slight; Lymphocytes # (A) 1.8 k/uL (1.0-4.8); Lymphocytes % (A) 20 %; MCH 31.4 pg (25.0-35.0); MCHC 33.1 g/dL (31.0-37.0); MCV 94.7 fL (80.0-100.0); Mean Platelet Volume 8.6; Monocytes # (A) 0.6 k/uL (0-1.0); Monocytes % (A) 6 %; Neutrophils # (A) 6.1 k/uL (1.3-7.7); Neutrophils % (A) 69 %; Platelet Count 215 k/uL (150-450); RDW 14.4 % (11.5-15.5); WBC 8.8 k/uL (3.8-10.6)
[2017-07-01 07:17] LABS: Calcium 6.8 mg/dL (8.4-10.2)
[2017-07-01] MEDS: IPRATROPIUM-ALBUTEROL 3 ML NEB INHALATION SCH ×4 (08:23→21:03)
[2017-07-01] MEDS: AMIODARONE 200 MG TAB PO SCH ×2 (08:35→22:24)
[2017-07-01] MEDS: guaiFENesin 600 MG TABLET.ER PO SCH ×2 (08:35→22:24)
[2017-07-01] MEDS: CARBIDOPA-LEVODOPA 25-100 MG 1 EACH TAB PO SCH ×2 (08:35→22:23)
[2017-07-01] MEDS: METOPROLOL TARTRATE 12.5 MG TAB PO SCH ×2 (08:35→22:24)
[2017-07-01] MEDS: OXYBUTYNIN CHLORIDE 5 MG TAB PO SCH ×2 (08:35→22:24)
[2017-07-01] MEDS: MULTIVITAMINS, THERA 1 EACH TAB PO SCH (08:35)
--- NOTE | 2017-07-01 08:35 | P.PN ---
Subjective Progress Note Date: 07/01/17 This is an 86-year-old female who is status post intramedullary nail fixation for left intratrochanteric hip fracture. This is postoperative day #6. Patient is being followed closely by cardiology and pulmonology for atrial fibrillation with RVR and history of pulmonary embolism. Patient states that she does have some soreness in the left hip, but overall this is tolerable. Patient has no new complaints today. Objective - Vital Signs Vital signs: Vital Signs Temp 98.2 F 07/01/17 04:00 Pulse 73 07/01/17 08:23 Resp 17 07/01/17 04:15 BP 108/49 07/01/17 04:00 Pulse Ox 100 07/01/17 04:00 Intake & Output 06/30/17 07/01/17 07/01/17 18:59 06:59 18:59 Intake Total 810 530 240 Output Total 450 Balance 360 530 240 Weight 115.5 kg Intake: Intake, IV Titration 370 290 Amount Piperacillin-Tazobactam 3 50 50 .375 gm In Dextrose/Water 1 50ml.bag @ 12.5 mls/hr IVPB Q8H [facility] Rx#: [id number] Sodium Chloride 0.9% 1, 320 240 000 ml @ 40 mls/hr IV . Q24H MAGO Rx#:[id number] Oral 440 240 240 Output: Urine 450 Other: Voiding Method Indwelling Catheter Indwelling Catheter # Bowel Movements 2 - Exam On exam patient is alert and oriented 3 lying in bed in no acute distress. Left lower extremity with dressing clean, dry and intact. Calf is soft and nontender to palpation. Left lower extremity is warm and well perfused. Dorsalis pedis pulse 2+. Neurovascular status and circulatory status are intact. - Labs CBC & Chem 7: 07/01/17 06:11 07/01/17 06:11 Labs: Abnormal Lab Results - Last 24 Hours (Table) 06/30/17 06/30/17 06/30/17 Range/Units 11:51 16:36 21:51 RBC (3.80-5.40) m/uL Hgb (11.4-16.0) gm/dL Hct (34.0-46.0) % PT (9.0-12.0) sec INR (<1.2) Chloride (98-107) mmol/L POC Glucose (mg/dL) 112 H 117 H 198 H (75-99) mg/dL Calcium (8.4-10.2) mg/dL 07/01/17 07/01/17 07/01/17 Range/Units 06:11 06:11 06:11 RBC 2.90 L (3.80-5.40) m/uL Hgb 9.1 L (11.4-16.0) gm/dL Hct 27.4 L (34.0-46.0) % PT 60.5 H (9.0-12.0) sec INR 6.6 H* (<1.2) Chloride 108 H (98-107) mmol/L POC Glucose (mg/dL) (75-99) mg/dL Calcium 6.8 L (8.4-10.2) mg/dL Microbiology - Last 24 Hours (Table) 06/25/17 21:30 Blood Culture - Preliminary Blood No Growth after 120 hours 06/25/17 20:50 Blood Culture - Preliminary Blood No Growth after 120 hours Assessment and Plan (1) Fracture, intertrochanteric, left femur Current Visit: Yes Status: Acute Code(s): S72.142A - DISPLACED INTERTROCHANTERIC FRACTURE OF LEFT FEMUR, INIT SNOMED Code(s): 648323468 (2) Hip fracture Current Visit: Yes Status: Acute Code(s): S72.009A - FRACTURE OF UNSP PART OF NECK OF UNSP FEMUR, INIT SNOMED Code(s): 792200635 (3) Left hip pain Current Visit: Yes Status: Acute Code(s): M25.552 - PAIN IN LEFT HIP SNOMED Code(s): 64784330 (4) Status post fall Current Visit: Yes Status: Acute Code(s): Z91.81 - HISTORY OF FALLING SNOMED Code(s): 813351796 (5) Atrial fibrillation with RVR Current Visit: Yes Status: Acute Code(s): I48.91 - UNSPECIFIED ATRIAL FIBRILLATION SNOMED Code(s): 543993358320706 (6) History of pulmonary embolism Current Visit: Yes Status: Acute Code(s): Z86.711 - PERSONAL HISTORY OF PULMONARY EMBOLISM SNOMED Code(s): 734866197 Plan: 1. Nonweightbearing to left lower extremity. 2. Physical therapy for mobility and transfers. 3. Continue pain control and routine postoperative care. 4. Continue anticoagulation. 5. Appreciate input from cardiology, internal medicine, and pulmonology. 6. Patient is awaiting discharge to [facility] when medically cleared.
[2017-07-01] MEDS: WARFARIN 3 MG TAB PO SCH (09:00)
[2017-07-01] MEDS: CALCIUM CARBONATE 500 MG CHEWABLE PO SCH (11:47)
[2017-07-01 12:14] LABS: Glucose,Whole Blood 98 mg/dL (75-99)
[2017-07-01] MEDS: SODIUM CHLORIDE 0.9% 1,000 ML IV SCH (14:52)
[2017-07-01 16:50] LABS: Glucose,Whole Blood 245 mg/dL (75-99)
[2017-07-01] MEDS: Acetaminophen-Codeine 300-30mg TAB PO PRN (19:46)
[2017-07-01] MEDS: SENNOSIDES-DOCUSATE SODIUM 1 EACH TAB PO SCH (19:49)
[2017-07-01 20:58] LABS: Glucose,Whole Blood 136 mg/dL (75-99)
--- NOTE | 2017-07-01 21:59 | P.PN ---
Subjective Progress Note Date: 07/01/17 Principal diagnosis: Left Intertrochanteric femoral hip fracture, displaced at acute due to a fall New onset atrial fibrillation Patient is status post Left Intertrochanteric femoral hip fracture, displaced at acute due to a fall 06/25/2017 Patient underwent intertrochanteric hip screw placement with Use of fluoroscopic guidance. Closed reduction Patient is a poor historian but can answer simple questions. Currently denied any pain. No nausea vomiting or abdominal pain no commerce of chest pain or shortness of breath. 06/26/2017 Patient developed atrial fibrillation with rapid regular rate this morning. Patient was also hypotensive and felt generally weak and dizzy and lightheaded. fluid boluses was given. Patient was also to ICU for further management. Patient was started on amiodarone drip. Patient was converted back to sinus rhythm. Cardiology has seen the patient. Currently patient is in sinus rhythm. Patient was started back on antibiotic ablation with Coumadin. 2-D echocardiogram was ordered. Patient does have a history of moderate aortic stenosis. 06/27/2017 Patient currently maintained on sinus rhythm. Amiodarone changed to oral. Patient is being continued on Coumadin. Continue the current management and 2- D echocardiogram showed normal LV function and moderate aortic stenosis. Otherwise no fever no chills. No acute overnight issues. Patient is a poor historian. 06 28 2017 Patient denied any complaints of chest pain or shortness of breath. Able to answer simple questions. Otherwise patient remained on sinus rhythm. hemoglobin dropped to 6.9 last night. Underwent blood transfusion improved to 8.3 today morning. Patient is currently transferred to telemetry unit. Denied any chest pain. Patient denied a fever this morning T-max of 100.3. Chest x-ray showed increasing infiltrate compared to yesterday. Patient was started on antibiotics. Otherwise patient is being continued on amiodarone. On anticoagulation with Coumadin. INR 1.5 06/29/2017 Patient denied any complaints of chest pain or worsening shortness of breath. Otherwise patient is afebrile. No leukocytosis. Hemoglobin is fairly stable otherwise patient is being continued on amiodarone and low-dose metoprolol was added. Remains is sinus rhythm. Continued on anticoagulation. Cardiology is following. Encourage incentive spirometry and PTOT. Patient remains on antibiotics in the form of Zosyn. 06/30/2017 Patient remained in sinus rhythm. Continued on metoprolol and amiodarone dose has been decreased to 20 mg daily. Continued on antibiotics. No leukocytosis. No fever no chills. Hemoglobin is fairly stable. No acute overnight issues. PTOT 07/01/2017 Patient is more awake and oriented. Heart rate is controlled. Sinus rhythm now. Cardiology is following. Otherwise patient is able to sit in the chair today and able to tolerate oral diet. Encourage incentive spirometry. No fever no chills. No complaints of chest pain. No worsening shortness of breath. No leukocytosis. Patient is being continued on PTOT INR is 6.6 today and Coumadin dose has been held otherwise. All other review of systems negative except the above. Current medications reviewed. Active Medications Generic Name Dose Route Start Last Admin Trade Name Freq PRN Reason Stop Dose Admin Acetaminophen 650 mg 06/25/17 20:12 06/28/17 16:08 Tylenol Tab PO 650 mg Q6HR PRN Administration Fever and/ or Mild Pain Acetaminophen/Codeine Phosphate 1 each 06/25/17 14:24 Tylenol #3 PO Q3HR PRN Pain Scale 1 to 5 Acetaminophen/Codeine Phosphate 2 each 06/25/17 14:24 Tylenol #3 PO Q3HR PRN Pain Scale 6 to 10 Albuterol/Ipratropium 3 ml 06/26/17 08:00 06/28/17 20:29 Duoneb 0.5 Mg-3 Mg/3 Ml Soln INHALATION 3 ml RT-QID MAGO Administration Albuterol/Ipratropium 3 ml 06/25/17 23:01 06/25/17 23:05 Duoneb 0.5 Mg-3 Mg/3 Ml Soln INHALATION 3 ml RT-Q2H PRN Administration Shortness Of Breath Or Wheezing Amiodarone HCl 400 mg 06/27/17 21:00 06/28/17 20:54 Cordarone PO 400 mg BID MAGO Administration Atorvastatin Calcium 20 mg 06/23/17 21:00 06/28/17 20:54 Lipitor PO 20 mg HS MAGO Administration Benzocaine/Menthol 1 each 06/25/17 14:23 Cepacol Lozenge MUCOUS MEM Q4HR PRN Sore Throat Calcium Carbonate/Glycine 500 mg 06/26/17 12:00 06/28/17 11:18 Tums PO 500 mg DAILY@1200 MAGO Administration Carbidopa/Levodopa 1 each 06/23/17 21:00 06/28/17 20:54 Sinemet 25-100 PO 1 each BID MAGO Administration Donepezil HCl 10 mg 06/23/17 21:00 06/28/17 20:54 Aricept PO 10 mg HS MAGO Administration Hydromorphone HCl 2 mg 06/26/17 04:00 Dilaudid PO Q4HR PRN Severe Pain Sodium Chloride 1,000 mls @ 75 mls/hr 06/25/17 14:30 06/28/17 11:19 Saline 0.9% IV 75 mls/hr .[id number] MAGO Administration Insulin Aspart 0 unit 06/26/17 17:30 06/28/17 21:05 Novolog SQ Not Given ACHS [facility] Protocol Magnesium Hydroxide 2,400 mg 06/25/17 14:24 06/28/17 09:44 Milk Of Magnesia PO 2,400 mg DAILY PRN Administration Constipation Miscellaneous Information 1 each 06/25/17 22:39 Magnesium Per Protocol MISCELLANE DAILY PRN Per Protocol Protocol Miscellaneous Information 1 each 06/25/17 22:39 Potassium Per Protocol MISCELLANE DAILY PRN Per Protocol Protocol Multivitamins 1 each 06/26/17 12:00 06/28/17 11:18 Theragran PO 1 each DAILY@1200 MAGO Administration Naloxone HCl 0.2 mg 06/25/17 14:24 Narcan IV Q2M PRN Opioid Reversal Ondansetron HCl 4 mg 06/23/17 16:07 06/27/17 17:26 Zofran IVP 4 mg Q8HR PRN Administration Nausea And Vomiting Oxybutynin Chloride 5 mg 06/23/17 21:00 06/28/17 20:54 Ditropan PO 5 mg BID MAGO Administration Pantoprazole Sodium 40 mg 06/27/17 09:45 06/28/17 06:57 Protonix PO 40 mg [id number] MAGO Administration Senna/Docusate Sodium 2 each 06/25/17 21:00 06/28/17 21:06 Senokot-S PO Not Given HS [facility] Tramadol HCl 50 mg 06/25/17 20:11 06/26/17 05:13 Ultram PO 50 mg QID PRN Administration Moderate Pain Warfarin Sodium 3 mg 06/26/17 18:00 04/12/18 17:33 Coumadin PO 3 mg TUTHSA MAGO Administration Warfarin Sodium 6 mg 06/25/17 18:00 06/27/17 17:25 Coumadin PO 6 mg SUMOWEFR MAGO Administration Objective - Vital Signs Vital signs: Vital Signs Temp 97.0 F L 07/01/17 15:40 Pulse 70 07/01/17 21:15 Resp 18 07/01/17 15:40 BP 98/46 07/01/17 15:40 Pulse Ox 95 07/01/17 15:47 Intake & Output 07/01/17 07/01/17 07/02/17 06:59 18:59 06:59 Intake Total 530 960 Output Total 625 Balance 530 335 Weight 115.5 kg Intake: Intake, IV Titration 290 370 Amount Piperacillin-Tazobactam 3 50 50 .375 gm In Dextrose/Water 1 50ml.bag @ 12.5 mls/hr IVPB Q8H [facility] Rx#: [id number] Sodium Chloride 0.9% 1, 240 320 000 ml @ 40 mls/hr IV . Q24H [facility] Rx#:[id number] Oral 240 590 Output: Urine 625 Other: Voiding Method Indwelling Catheter Indwelling Catheter # Bowel Movements 2 - Exam PHYSICAL EXAMINATION: Patient is lying in the bed comfortably, no acute distress, awake alert and oriented x1-2.. HEENT: Normocephalic. Neck is supple. Pupils reactive. Nostrils clear. Oral cavity is moist. Ears reveal no drainage. Neck reveals no JVD, carotid bruits, or thyromegaly. CHEST EXAMINATION: Trachea is central. Symmetrical expansion. Patient does have rhonchi mainly due to upper airway. No wheezing. No crackles CARDIAC: Normal S1, S2 with no gallops. No murmurs ABDOMEN: Soft. Bowel sounds normal. No organomegaly. No abdominal bruits. Extremities: reveal no edema. No clubbing or cyanosis Neurologically awake, alert, oriented x1-2 with well-coordinated movements. No focal deficits noted Skin: No rash or skin lesions. Psychiatric: Coperative. Could not be assessed completely Musculoskeletal: Left femur surgical site bandaged. No leg swelling. - Labs CBC & Chem 7: 07/01/17 06:11 07/01/17 06:11 Labs: Abnormal Lab Results - Last 24 Hours (Table) 06/30/17 07/01/17 07/01/17 Range/Units 21:51 06:11 06:11 RBC 2.90 L (3.80-5.40) m/uL Hgb 9.1 L (11.4-16.0) gm/dL Hct 27.4 L (34.0-46.0) % PT 60.5 H (9.0-12.0) sec INR 6.6 H* (<1.2) Chloride (98-107) mmol/L POC Glucose (mg/dL) 198 H (75-99) mg/dL Calcium (8.4-10.2) mg/dL 07/01/17 07/01/17 07/01/17 Range/Units 06:11 16:34 20:56 RBC (3.80-5.40) m/uL Hgb (11.4-16.0) gm/dL Hct (34.0-46.0) % PT (9.0-12.0) sec INR (<1.2) Chloride 108 H (98-107) mmol/L POC Glucose (mg/dL) 245 H 136 H (75-99) mg/dL Calcium 6.8 L (8.4-10.2) mg/dL Microbiology - Last 24 Hours (Table) 06/25/17 21:30 Blood Culture - Preliminary Blood No Growth after 120 hours 06/25/17 20:50 Blood Culture - Preliminary Blood No Growth after 120 hours Assessment and Plan Assessment: Atrial fibrillation with rapid ventricular rate. New-onset. Rate controlled. Continued on amiodarone. Currently sinus rhythm. Status post fall Left Intertrochanteric femoral hip fracture. Underwent intertrochanteric screw placement on 06/25/2017 Bibasilar infiltrate and atelectasis. Right greater than left. Possible pneumonia gram-negative organism Parkinson's disease Dementia Chronic urinary incontinence Chronic pulmonary embolism on Coumadin Moderate aortic stenosis Osteoporosis and chronic gait dysfunction DVT prophylaxis patient is already on Coumadin Labs: Patient was started on amiodarone drip. Changed to oral. Currently in sinus rhythm. Added metoprolol low-dose. started on antibiotics in the form of Zosyn due to basilar infiltrates and fever. Encourage incentive spirometry.. Pulmonary is following. Patient be continued on pain medications and bowel regimen. Encourage ambulation and incentive spirometry. Coumadin has been restarted. Otherwise we will continue the home medications and further recommendations based on the clinical course. Time with Patient: Greater than 30
[2017-07-01] MEDS: ATORVASTATIN 20 MG TAB PO SCH (22:23)
[2017-07-01] MEDS: DONEPEZIL 10 MG TAB PO SCH (22:23)
[2017-07-02] MEDS: INSULIN ASPART 100 UNIT/ML 1 ML 10 ML VIAL SQ SCH ×4 (00:07→17:06)
[2017-07-02] MEDS: PIPERACILLIN-TAZOBACTAM 3.375 GM in DEXTROSE/WATER 1 50ML.BAG IVPB SCH ×3 (00:08→14:22)
[2017-07-02 05:58] LABS: Glucose,Whole Blood 121 mg/dL (75-99)
[2017-07-02] MEDS: PANTOPRAZOLE 40 MG TABLET PO SCH (06:29)
[2017-07-02 06:40] LABS: Prothrombin Time 75.3 sec (9.0-12.0)
[2017-07-02 07:32] LABS: INR 8.1 (<1.2)
[2017-07-02] MEDS: IPRATROPIUM-ALBUTEROL 3 ML NEB INHALATION SCH ×4 (07:57→21:38)
--- NOTE | 2017-07-02 09:07 | P.PN ---
Progress Note - Text Progress Note Date: 07/02/17 Patient is a very pleasant 86-year-old female who is seen and examined in elective care for further evaluation for her left hip. She is status post intramedullary nail fixation for left intertrochanteric hip fracture performed today, 06/25/2017. Patient was previously on 3 [address] when she was transferred to bedside chair when she went into atrial fibrillation and RVR. She was transferred to the the ICU for treatment and evaluation. Nursing states she was able to spontaneously return to her baseline EKG settings. Patient was started on amiodarone drip in the ICU. She continues to be seen and examined by Dr. Holley in cardiology. She has been transitioned to oral amiodarone. Yesterday she was able to transfer from the ICU to selective care. Nursing states she did have an episode of atrial fibrillation and RVR night in selective care which spontaneously resolved. Patient has maintained sinus rhythm. Patient is lying comfortably in bed. She states she has been experiencing some pain in her left hip but feels her hip pain has significantly improved. Nursing states her pain has been adequately controlled. Patient has been receiving Ultram, Tylenol #3, and Dilaudid as prescribed as needed for relief of her symptoms. Patient previously underwent venous ultrasound Doppler of the bilateral lower extremities yesterday which were negative for DVT. Patient's INR has had significant increase over the weekend is currently 8.1 following lab results this morning. Patient continues to be seen by Dr. Luz in medicine, Dr. Roberts in pulmonology, and Dr. Holley and Jayashree Newsome NP in cardiology. Patient was also started on Zosyn by medicine. Patient also has evidence of acute onset cellulitis of the right lower extremity, ankle, and foot with an apparent puncture wound over the anterior medial ankle. Nursing states this wound was not evident yesterday. Patient is experiencing significant pain with palpation over the right ankle. Physical Exam Intramedullary Rod[place] for Intertrochanteric Fracture: Status post surgical day number 7 Patient is examined lying in bed in selective care Patient is awake and alert, and oriented 3; patient communicates very well today Vital signs stable Good chest excursion with deep inspiration and expiration; patient currently on 3L O2 nasal cannula Pneumatic cuff not currently intact; patient is currently receiving a bedside bath Dressing of the left hip is clean, dry, and intact; no erythema, purulence, or signs of infection; Dermabond remains intact Dressing is removed over the left hip; no significant pain with palpation over the surgical sites Mild bruising around the surgical sites Full range of motion of ankles bilaterally Dorsiflexion, plantarflexion, and extensor hallucis longus positive sustained bilaterally Neurovascularly intact bilateral lower extremities Left lower extremity currently placed in pneumatic boot New-onset right ankle erythema, pain, and increased warmth to palpation over the inferior right lower extremity, over the ankle, and over the anterior right foot Apparent puncture wound over the right anterior medial ankle without active drainage 2+ pitting edema right lower extremity at the ankle Johnston catheter intact Pertinent studies taken on 06/26/2017: WBC 11.9 Hemoglobin 8.0 Troponin 0.107 Repeat troponin 0.085 Pertinent studies taken on 06/27/2017: INR 1.4 Pertinent studies taken on 06/29/2017: INR 1.7 Hemoglobin 8.8 WBC 6.3 Pertinent studies taken on 07/01/2017: INR 6.6 Hemoglobin 9.1 Pertinent studies taken on 07/02/2017: INR 8.1 Assessment: Status post left intramedullary nail fixation for left intertrochanteric hip fracture Status post fall Left hip pain Recent episode of atrial fibrillation and RVR History of pulmonary embolism Cellulitis and pain with swelling over the right anterior medial ankle with what appears to be a small puncture wound Plan: 1. We will continue with our treatment plan as previously set forth regards to her left intertrochanteric hip fracture status post intramedullary nail fixation. Patient to remain nonweightbearing on the left lower extremity; patient may work with physical therapy to increase mobility and ambulation; patient will plan to be transferred to a bedside chair today. Incisions are well healed over the left hip. Patient no longer needs a dressing over the incision sites of the left hip. 2. Patient appears to have new onset cellulitis and pain with swelling over the right lower extremity with an apparent puncture wound. Nursing states this was not evident yesterday. It is unclear how the patient sustained this wound. Patient is currently on Zosyn IV. We'll plan to consult with Dr. Espinal in infectious disease for further evaluation and possible treatment. She does not currently have a palpable fluid collection. We are not currently planning for incision and drainage of the right ankle. 3. Discontinue Johnston catheter when patient is able to increase mobility and ambulation 4. Continue pain control 5. Continue with anticoagulation therapy as previously prescribed prior to surgical intervention; medicine to monitor again anticoagulation therapy 6. Patient will continue be seen and examined by Dr. Holley in cardiology for treatment in regards to her recent atrial fibrillation and RVR 6. Dr. Luz in Medicine and Dr. Roberts in pulmonology to continue following the patient for her other medical diagnosis 7. We'll continue to follow the patient closely; patient is planning for discharge to [facility] rehabilitation facility when cleared for discharge 8. Patient can follow-up with See Uribe PA-C or Dr. Andrew Zambrano at [facility] in 2-3 weeks following discharge
[2017-07-02] MEDS: METOPROLOL TARTRATE 12.5 MG TAB PO SCH ×2 (09:34→21:26)
[2017-07-02] MEDS: CARBIDOPA-LEVODOPA 25-100 MG 1 EACH TAB PO SCH ×2 (09:35→21:25)
[2017-07-02] MEDS: AMIODARONE 200 MG TAB PO SCH (09:35)
[2017-07-02] MEDS: guaiFENesin 600 MG TABLET.ER PO SCH ×2 (09:35→21:26)
[2017-07-02] MEDS: OXYBUTYNIN CHLORIDE 5 MG TAB PO SCH ×2 (09:36→21:26)
[2017-07-02 11:55] LABS: Glucose,Whole Blood 150 mg/dL (75-99)
[2017-07-02] MEDS: CALCIUM CARBONATE 500 MG CHEWABLE PO SCH (11:57)
[2017-07-02] MEDS: MULTIVITAMINS, THERA 1 EACH TAB PO SCH (11:57)
[2017-07-02] MEDS: SODIUM CHLORIDE 0.9% 1,000 ML IV SCH (14:29)
[2017-07-02 16:38] LABS: Glucose,Whole Blood 133 mg/dL (75-99)
[2017-07-02] MEDS ORDERED: PHYTONADIONE ORAL 5 MG/5 ML ORAL.SYRG PO STA (19:16)
--- NOTE | 2017-07-02 19:49 | PN ---
PROGRESS NOTE DATE OF SERVICE: July 02, 2017. PRESENTING COMPLAINT: Femur fracture. INTERVAL HISTORY: The patient has presented with left femur fracture followed by mechanical repair, then had uncontrolled atrial fibrillation, was put on IV amiodarone, now reverted to sinus rhythm. The patient's INR is up to 8, probably likely back from Amiodarone, but no evidence of bleeding. The patient has developed what appears to be cellulitis on the right ankle area. Some pain is present. The patient otherwise tolerating some diet. Breathing is stable. REVIEW OF SYSTEMS: Done for constitutional, cardiovascular, GI, pulmonary, dermatological, musculoskeletal. Relevant findings as above. CURRENT MEDICATIONS: Include amiodarone, Sinemet, Dilaudid was currently held. PHYSICAL EXAMINATION: Temperature 98.1, pulse 79, respiration 20, blood pressure 103/55, pulse ox 100% on 2 L. GENERAL APPEARANCE: Lying in bed, awake. Eyes: Pupils equal. Conjunctivae pale. HEENT: External appearance of nose and ears normal. Oral cavity normal. Decreased hearing. Neck JVD not raised. Mass not palpable. Respiratory effort normal. Lungs decreased breath sounds. Cardiovascular 1st and 2nd sounds normal. No edema. ABDOMEN: Soft, nontender. Liver and spleen not palpable. Psychiatry: Awake, answering simple questions. Dermatological redness, tenderness around the right ankle area. Slight breakdown of skin up to the mid koehler. INVESTIGATIONS: White count yesterday was 8.8, hemoglobin 9.1, INR 8.1. ASSESSMENT: 1. Left femur IT fracture displaced secondary to fall followed by IT hip screw placement. 2. Paroxysmal atrial flutter fibrillation rapid ventricular rate, now in sinus rhythm on Coumadin. 3. Coumadin monitoring with patient having Coumadin toxicity with no evidence of bleeding. 4. Acute right lower cellulitis around the right ankle area. 5. Parkinson disease. 6. Dementia Parkinson disease. 7. Chronic urinary incontinence. 8. Chronic pulmonary embolism for which patient is on Coumadin. 9. Moderate aortic stenosis nonrheumatic. 10.Chronic osteoporosis. 11.Chronic gait dysfunction. Patient has a walker at baseline. PLAN: Given that patient had been probably not eating and amiodarone has made INR go up, the patient may need a small dose of Coumadin down the road. We will give 2.5 mg of Coumadin. Per Cardiology dose of amiodarone dose will be decreased to 200 mg once a day a day. For the cellulitis ID started the patient on IV Ancef and Silvadene cream. MMODL / NEGINN: [id number] /
--- NOTE | 2017-07-02 20:17 | US ---
EXAMINATION TYPE: US venous doppler duplex LE RT DATE OF EXAM: 07/02/2017 6:35 PM COMPARISON: 06/26/2017 [facility] CLINICAL HISTORY: DVT. rednees and swelling SIDE PERFORMED: Right TECHNIQUE: The lower extremity deep venous system is examined utilizing real time linear array sonog janet with graded compression, doppler sonography and color-flow sonography. VESSELS IMAGED: External Iliac Vein (EIV) Common Femoral Vein Deep Femoral Vein Greater Saphenous Vein * Femoral Vein Popliteal Vein Small Saphenous Vein * Proximal Calf Veins (* superficial vessels) FINDINGS: Grayscale, color doppler, spectral doppler imaging performed of the deep veins of the lower extremities. There is normal flow, compressibility, vascular waveforms. IMPRESSION: NEGATIVE FOR DVT, RIGHT LOWER EXTREMITY.
[2017-07-02 20:28] LABS: Glucose,Whole Blood 153 mg/dL (75-99)
[2017-07-02] MEDS: ATORVASTATIN 20 MG TAB PO SCH (21:25)
[2017-07-02] MEDS: DONEPEZIL 10 MG TAB PO SCH (21:26)
[2017-07-02] MEDS: SENNOSIDES-DOCUSATE SODIUM 1 EACH TAB PO SCH (21:26)
[2017-07-02] MEDS: Acetaminophen-Codeine 300-30mg TAB PO PRN (21:29)
--- NOTE | 2017-07-02 21:45 | P.CONS ---
History of Present Illness - Reason for Consult Consult date: 07/02/17 - Chief Complaint pain left ankle - History of Present Illness 86-year-old female presents to hospital 9 days ago which point in time she suffered a fall resulting in a left intertrochanteric fracture. She subsequently was taken to the operating room with intramedullary nailing occurring for the fracture. With her age and debility including from dementia is having somewhat of a difficult recovery. She's had atrial fibrillation with rapid ventricular response that has now improved. She is a known history of a pulmonary embolus and is on chronic anticoagulation with Coumadin. With addition of amiodarone she's had an elevation of her INR and this is being monitored, patient without evidence of bleeding at this time. The patient has been seen by therapy and she is not weightbearing to the left leg but has been doing some therapy. She's being ready for transfer to [facility] where she will receive care and therapy after the left hip fracture. The patient certainly is developed pain and swelling erythema to the right lower extremity especially distal around the ankle. There is notation that there was a small injury that almost appeared to be a puncture, however no known trauma had occurred. The erythema and tenderness have persisted and constantly the infectious diseases consultation was requested. The patient although poor historian is denying fever, chills or rigors. The site is uncomfortable. It has made some of her transfer activity much more difficult because of the pain at the foot and ankle area. She's not had this significant problem in the past. Review of Systems Patient with dementia but is able to answer simple questions HEENT:Denies headache or acute visual change. Denies sinus or mouth discomforts. Denies neck stiffness or pain. Denies significant oral cavity pain. Denies difficulty on swallowing. Lungs: Denies significant shortness of breath, cough, sputum production, or hemoptysis. Cardiovascular: Denies significant shortness of breath, chest pain, chest wall pain, orthopnea, dyspnea on exertion, syncope Gastrointestinal:Denies nausea, vomiting, diarrhea, constipation, hematemesis, melena, hematochezia. No no significant change of bowel habit noticed. Musculoskeletal: Continues to have some pain to the left hip but is improved Skin: As per the HPI pain and swelling to the right ankle area Neuro: Denies headache or visual change. Has dementia but no acute gross focal motor defects Psychiatry: Some anxiety Endocrine: Denies significant fatigue, denies significant weight loss or weight gain. Past Medical History Past Medical History: Cancer, Hyperlipidemia, Hypertension, Musculoskeletal Disorder (History of right hip total hip replacement with Dr. Nicholson 2 or 3 years ago), Pulmonary Embolus (PE) Additional Past Medical History / Comment(s): breast ca w/ L masectomy; "Mini strokes" per family History of Any Multi-Drug Resistant Organisms: None Reported Past Surgical History: Breast Surgery, Cholecystectomy, Joint Replacement, Orthopedic Surgery Additional Past Surgical History / Comment(s): thyroid cyst; Right hip replacement Past Anesthesia/Blood Transfusion Reactions: No Reported Reaction Additional Psychological History / Comment(s): Dementia possible Alzheimers. Lives under the care of her family. Lifelong nonsmoker. No international travel. No animal exposures Smoking Status: Never smoker Past Alcohol Use History: None Reported Past Drug Use History: None Reported Medications and Allergies Home Medications and Allergies Comment(s): Current Medications Acetaminophen (Tylenol Tab) 650 mg PO Q6HR PRN PRN Reason: Fever and/ or Mild Pain Last Admin: 06/28/17 16:08 Dose: 650 mg Acetaminophen/Codeine Phosphate (Tylenol #3) 1 each PO Q3HR PRN PRN Reason: Pain Scale 1 to 5 Last Admin: 06/30/17 21:40 Dose: 1 each Acetaminophen/Codeine Phosphate (Tylenol #3) 2 each PO Q3HR PRN PRN Reason: Pain Scale 6 to 10 Last Admin: 07/02/17 21:29 Dose: 2 each Albuterol/Ipratropium (Duoneb 0.5 Mg-3 Mg/3 Ml Soln) 3 ml INHALATION RT-QID MAGO Last Admin: 07/02/17 15:52 Dose: 3 ml Albuterol/Ipratropium (Duoneb 0.5 Mg-3 Mg/3 Ml Soln) 3 ml INHALATION RT-Q2H PRN PRN Reason: Shortness Of Breath Or Wheezing Last Admin: 06/25/17 23:05 Dose: 3 ml Amiodarone HCl (Cordarone) 200 mg PO DAILY MAGO Atorvastatin Calcium (Lipitor) 20 mg PO HS [facility] Last Admin: 07/02/17 21:25 Dose: 20 mg Benzocaine/Menthol (Cepacol Lozenge) 1 each MUCOUS MEM Q4HR PRN PRN Reason: Sore Throat Last Admin: 06/29/17 17:19 Dose: 1 each Calcium Carbonate/Glycine (Tums) 500 mg PO DAILY@1200 [facility] Last Admin: 07/02/17 11:57 Dose: 500 mg Carbidopa/Levodopa (Sinemet 25-100) 1 each PO BID [facility] Last Admin: 07/02/17 21:25 Dose: 1 each Cefazolin Sodium (Kefzol) 2 gm IVP Q8HR [facility] Donepezil HCl (Aricept) 10 mg PO [facility] Last Admin: 07/02/17 21:26 Dose: 10 mg Guaifenesin (Mucinex) 600 mg PO Q12HR [facility] Last Admin: 07/02/17 21:26 Dose: 600 mg Hydromorphone HCl (Dilaudid) 2 mg PO Q4HR PRN PRN Reason: Severe Pain Insulin Aspart (Novolog) 0 unit SQ ACHS [facility] PRN Reason: Protocol Last Admin: 07/02/17 17:06 Dose: 1 unit Magnesium Hydroxide (Milk Of Magnesia) 2,400 mg PO DAILY PRN PRN Reason: Constipation Last Admin: 06/28/17 09:44 Dose: 2,400 mg Metoprolol Tartrate (Lopressor) 12.5 mg PO BID [facility] Last Admin: 07/02/17 21:26 Dose: 12.5 mg Miscellaneous Information (Magnesium Per Protocol) 1 each MISCELLANE DAILY PRN ; Protocol PRN Reason: Per Protocol Miscellaneous Information (Potassium Per Protocol) 1 each MISCELLANE DAILY PRN ; Protocol PRN Reason: Per Protocol Multivitamins (Theragran) 1 each PO DAILY@1200 [facility] Last Admin: 07/02/17 11:57 Dose: 1 each Naloxone HCl (Narcan) 0.2 mg IV Q2M PRN PRN Reason: Opioid Reversal Ondansetron HCl (Zofran) 4 mg IVP Q8HR PRN PRN Reason: Nausea And Vomiting Last Admin: 06/27/17 17:26 Dose: 4 mg Oxybutynin Chloride (Ditropan) 5 mg PO BID [facility] Last Admin: 07/02/17 21:26 Dose: 5 mg Pantoprazole Sodium (Protonix) 40 mg PO -BRKFST [facility] Last Admin: 07/02/17 06:29 Dose: 40 mg Senna/Docusate Sodium (Senokot-S) 2 each PO HS [facility] Last Admin: 07/02/17 21:26 Dose: Not Given Silver Sulfadiazine (Silvadene Cream) 1 applic TOPICAL DAILY [facility] Last Admin: 07/02/17 21:30 Dose: 1 applic Tramadol HCl (Ultram) 50 mg PO QID PRN PRN Reason: Moderate Pain Last Admin: 06/26/17 05:13 Dose: 50 mg Home Medications Medication Instructions Recorded Confirmed Type Carbidopa-Levodopa 25-100 mg 1 tab PO BID 10/05/14 06/23/17 History [Sinemet 25-100 mg] Donepezil HCl [Aricept] 10 mg PO HS 10/05/14 06/23/17 History Oxybutynin Chloride [Ditropan] 5 mg PO BID 10/05/14 06/23/17 History Simvastatin [Zocor] 40 mg PO HS 10/05/14 06/23/17 History Triamterene-Hctz 37.5-25Mg 1 tab PO DAILY 10/05/14 06/23/17 History [Maxzide 37.5-25] Warfarin Sodium 6 mg PO SUMOWEFR 10/05/14 06/23/17 History Calcium Carbonate [Calcium] 600 mg PO DAILY 07/08/15 06/23/17 History Multivitamins, Thera [Multivitamin 1 tab PO DAILY 07/08/15 06/23/17 History (formulary)] Warfarin Sodium 3 mg PO TUTHSA 07/08/15 06/23/17 History Allergies Allergy/AdvReac Type Severity Reaction Status Date / Time No Known Allergies Allergy Verified 06/23/17 14:08 Physical Exam Vitals: Vital Signs Temp Pulse Pulse Resp BP Pulse Ox 07/02/17 16:08 76 07/02/17 16:00 20 07/02/17 15:52 72 07/02/17 15:33 98.3 F 74 20 98/49 98 07/02/17 11:55 98.1 F 79 20 103/55 100 07/02/17 11:44 76 07/02/17 11:33 74 07/02/17 09:00 98.2 F 75 16 104/45 75 L 07/02/17 08:11 72 07/02/17 07:57 72 98 07/02/17 04:30 98.0 F 78 17 109/52 97 07/02/17 00:25 98.1 F 74 17 101/42 97 07/01/17 21:15 70 07/01/17 21:04 68 Intake and Output 07/02/17 07/02/17 07/02/17 06:59 14:59 22:59 Intake Total 1050 350 Output Total 250 400 Balance -250 1050 -50 Intake: IV 320 0.9 KVO 320 Intake, IV Titration 50 Amount Piperacillin-Tazobactam 3 50 .375 gm In Dextrose/Water 1 50ml.bag @ 12.5 mls/hr IVPB Q8H [facility] Rx#: [id number] Oral 680 350 Output: Urine 250 400 Uretheral (Johnston) 400 Other: Voiding Method Indwelling Catheter Indwelling Catheter # Bowel Movements 3 Weight 119 kg 86-year-old female who is comfortable but complains of pain in her right ankle HEENT: Anicteric conjunctiva are pink and moist nasal mucosa grossly intact without significant lesions, there is no thrush. Fully edentulous Neck: The neck is supple without significant lymphadenopathy or thyromegaly. Lungs: Good bilateral air entry without significant crackles or wheezing. There is no significant bronchial sounds. There is no egophony or dullness. Heart: Irregular with an audible S1 and S2 soft S4 no murmur click or rub PMI was nondisplaced Abdomen: Positive bowel sounds soft and nontender without palpable masses or organomegaly. There was no guarding or rebound. Extremities: The upper extremities have excellent pulses they are symmetric, no significant petechiae or telangiectasia. No splinter hemorrhages were noted. Left hip reveals evidence of the recent intramedullary nailing surgical wounds are healing well without erythema crepitance or fluctuance. There is no significant amount of edema or tenderness at that site. The right lower extremity shows evidence of the significant erythema tenderness to the ankle area and dorsum of the foot. She has discomfort when this is manipulated. The erythema ascends to just proximal to the ankle. There is no severe lymphadenopathy in inguinal area bilaterally. No other abnormal lymph nodes were noted. Neuro: Awake alert oriented to person but does not appear to have acute gross focal sensory motor deficits superimposed on her dementia Results CBC & Chem 7: 07/01/17 06:11 07/01/17 06:11 Labs: Abnormal Lab Results - Last 24 Hours (Table) 07/02/17 07/02/17 07/02/17 Range/Units 05:55 05:57 11:53 PT 75.3 H (9.0-12.0) sec INR 8.1 H* (<1.2) POC Glucose (mg/dL) 121 H 150 H (75-99) mg/dL 07/02/17 07/02/17 Range/Units 16:29 20:27 PT (9.0-12.0) sec INR (<1.2) POC Glucose (mg/dL) 133 H 153 H (75-99) mg/dL Microbiology - Last 24 Hours (Table) 06/25/17 21:30 Blood Culture - Final Blood No Growth after 144 hours 06/25/17 20:50 Blood Culture - Final Blood No Growth after 144 hours Laboratory Results WBC 8.8 k/uL (3.8-10.6) 07/01/17 06:11 RBC 2.90 m/uL (3.80-5.40) L 07/01/17 06:11 Hgb 9.1 gm/dL (11.4-16.0) L 07/01/17 06:11 Hct 27.4 % (34.0-46.0) L 07/01/17 06:11 MCV 94.7 fL (80.0-100.0) 07/01/17 06:11 MCH 31.4 pg (25.0-35.0) 07/01/17 06:11 MCHC 33.1 g/dL (31.0-37.0) 07/01/17 06:11 RDW 14.4 % (11.5-15.5) 07/01/17 06:11 Plt Count 215 k/uL (150-450) 07/01/17 06:11 Neutrophils % 69 % 07/01/17 06:11 Lymphocytes % 20 % 07/01/17 06:11 Monocytes % 6 % 07/01/17 06:11 Eosinophils % 1 % 07/01/17 06:11 Basophils % 1 % 07/01/17 06:11 Neutrophils # 6.1 k/uL (1.3-7.7) 07/01/17 06:11 Lymphocytes # 1.8 k/uL (1.0-4.8) 07/01/17 06:11 Monocytes # 0.6 k/uL (0-1.0) 07/01/17 06:11 Eosinophils # 0.1 k/uL (0-0.7) 07/01/17 06:11 Basophils # 0.1 k/uL (0-0.2) 07/01/17 06:11 Hypochromasia Slight 07/01/17 06:11 PT 75.3 sec (9.0-12.0) H 07/02/17 05:55 INR 8.1 (<1.2) H* 07/02/17 05:55 APTT 32.7 sec (22.0-30.0) H 06/23/17 15:28 Sodium 137 mmol/L (137-145) 07/01/17 06:11 Potassium 4.0 mmol/L (3.5-5.1) 07/01/17 06:11 Chloride 108 mmol/L (98-107) H 07/01/17 06:11 Carbon Dioxide 26 mmol/L (22-30) 07/01/17 06:11 Anion Gap 3 mmol/L 07/01/17 06:11 BUN 14 mg/dL (7-17) 07/01/17 06:11 Creatinine 0.87 mg/dL (0.52-1.04) 07/01/17 06:11 Est GFR (CKD-EPI)AfAm 69 (>60 ml/min/1.73 sqM) 07/01/17 06:11 Est GFR (CKD-EPI)NonAf 60 (>60 ml/min/1.73 sqM) 07/01/17 06:11 Glucose 91 mg/dL (74-99) 07/01/17 06:11 POC Glucose (mg/dL) 153 mg/dL (75-99) H 07/02/17 20:27 POC Glu Nuclear Physicist ID Mena Ortiz 07/02/17 20:27 Lactic Ac Sepsis Rflx Y 06/25/17 22:31 Plasma Lactic Acid Prieto 1.2 mmol/L (0.7-2.0) 06/26/17 01:53 Calcium 6.8 mg/dL (8.4-10.2) L 07/01/17 06:11 Magnesium 1.9 mg/dL (1.6-2.3) 06/27/17 21:15 Total Bilirubin 1.6 mg/dL (0.2-1.3) H 06/24/17 07:56 AST 412 U/L (14-36) H 06/24/17 07:56 ALT 50 U/L (9-52) 06/24/17 07:56 Alkaline Phosphatase 105 U/L (38-126) 06/24/17 07:56 Troponin I 0.085 ng/mL (0.000-0.034) H* 06/26/17 17:32 NT-Pro-B Natriuret Pep 1960 pg/mL 06/26/17 13:22 Total Protein 5.5 g/dL (6.3-8.2) L 06/24/17 07:56 Albumin 3.0 g/dL (3.5-5.0) L 06/24/17 07:56 Urine Color Yellow 06/23/17 12:17 Urine Appearance Cloudy (Clear) H 06/23/17 12:17 Urine pH 6.5 (5.0-8.0) 06/23/17 12:17 Ur Specific S[place]x 1.011 (1.001-1.035) 06/23/17 12:17 Urine Protein Trace (Negative) H 06/23/17 12:17 Urine Glucose (UA) Negative (Negative) 06/23/17 12:17 Urine Ketones Negative (Negative) 06/23/17 12:17 Urine Blood Negative (Negative) 06/23/17 12:17 Urine Nitrite Negative (Negative) 06/23/17 12:17 Urine Bilirubin Negative (Negative) 06/23/17 12:17 Urine Urobilinogen <2.0 mg/dL (<2.0) 06/23/17 12:17 Ur Leukocyte Esterase Negative (Negative) 06/23/17 12:17 Urine RBC 1 /hpf (0-5) 06/23/17 12:17 Urine WBC 1 /hpf (0-5) 06/23/17 12:17 Ur Squamous Epith Cells 1 /hpf (0-4) 06/23/17 12:17 Amorphous Sediment Rare /hpf (None) H 06/23/17 12:17 Urine Mucus Rare /hpf (None) H 06/23/17 12:17 C. difficile (EIA) Intrp Negative (Negative) 07/02/17 10:09 Blood Type B Positive 06/28/17 01:40 Blood Type Confirm B Positive 06/28/17 02:49 Blood Type Recheck CABO Indicated 06/28/17 01:40 Antibody Screen NEGATIVE 06/28/17 01:40 Crossmatch See Detail 06/28/17 01:40 Spec Expiration Date 07/01/2017 - 233906/28/17 01:40 Microbiology 06/25/17 21:30 Blood Blood Culture - Final No Growth after 144 hours 06/25/17 20:50 Blood Blood Culture - Final No Growth after 144 hours Assessment and Plan (1) Atrial fibrillation with RVR Current Visit: Yes Status: Acute Code(s): I48.91 - UNSPECIFIED ATRIAL FIBRILLATION SNOMED Code(s): 642778781646182 (2) History of pulmonary embolism Current Visit: Yes Status: Acute Code(s): Z86.711 - PERSONAL HISTORY OF PULMONARY EMBOLISM SNOMED Code(s): 896263932 (3) Fracture, intertrochanteric, left femur Current Visit: Yes Status: Acute Code(s): S72.142A - DISPLACED INTERTROCHANTERIC FRACTURE OF LEFT FEMUR, INIT SNOMED Code(s): 229345460 (4) Elevated INR Current Visit: Yes Status: Acute Code(s): R79.1 - ABNORMAL COAGULATION PROFILE SNOMED Code(s): 438075055 (5) Cellulitis of right leg Narrative/Plan: 86-year-old female presents to Hospital 06/23/2017 after a fall and resultant left intertrochanteric hip fracture. She was cared for by orthopedics and had the intramedullary nailing performed to the left hip fracture. She doing relatively well but had difficulties with atrial fibrillation with RVR is now better controlled. The patient however has developed swelling erythema and pain to the right foot and ankle area. There is notation that there may have been a puncture injury that but is not evident at this time. There is however distinct tenderness to range of motion and touch. There is erythema without purulence or lesions or drainage. Patient has evidence of the distinct cellulitis of the right foot and ankle area. Antibiotic therapy will be utilized with cefazolin, local wound care with Silvadene wrap will be applied. Doppler will be requested to ensure there is not a deep venous thrombosis, with her anticoagulation would seem unlikely but would like to ensure is not the case. Elevation of liver she tolerates will be helpful. Pain control appears to be adequate. It appears that she is further improved she will be transferred to the extended care facility for her further rehab. Medicine is following closely for her elevated INR. Current Visit: Yes Status: Acute Code(s): L03.115 - CELLULITIS OF RIGHT LOWER LIMB SNOMED Code(s): 871999998
[2017-07-03 06:09] LABS: Glucose,Whole Blood 115 mg/dL (75-99)
[2017-07-03] MEDS: ceFAZolin IN SWFI 2 GM/20 ML SYRINGE IVP SCH ×3 (06:24→17:39)
[2017-07-03] MEDS: INSULIN ASPART 100 UNIT/ML 1 ML 10 ML VIAL SQ SCH ×3 (06:32→17:42)
[2017-07-03] MEDS: PANTOPRAZOLE 40 MG TABLET PO SCH (06:35)
--- NOTE | 2017-07-03 08:29 | P.PN ---
Progress Note - Text Progress Note Date: 07/03/17 Patient is a very pleasant 86-year-old female who is seen and examined in elective care for further evaluation for her left hip. She is status post intramedullary nail fixation for left intertrochanteric hip fracture performed today, 06/25/2017. Patient was previously on [address] when she was transferred to bedside chair when she went into atrial fibrillation and RVR. She was transferred to the the ICU for treatment and evaluation. Nursing states she was able to spontaneously return to her baseline EKG settings. Patient was started on amiodarone drip in the ICU. She continues to be seen and examined by Dr. Holley in cardiology. She has been transitioned to oral amiodarone. Previously she was able to transfer from the ICU to selective care. Nursing states she did have an episode of atrial fibrillation and RVR night in selective care which spontaneously resolved. Patient has maintained sinus rhythm. Patient is lying comfortably in bed. She states she is not currently experiencing any significant pain in her left hip and feels her hip pain has significantly improved. Nursing states her pain has been adequately controlled. Patient has been receiving Ultram, Tylenol #3, and Dilaudid as prescribed as needed for relief of her symptoms. Patient previously underwent venous ultrasound Doppler of the bilateral lower extremities while in the ICU which were negative for DVT. Patient's INR has had significant increase over the weekend is currently 8.1 following lab results yesterday. There are no INR lab results this morning. Patient continues to be seen by Dr. Luz in medicine, Dr. Roberts in pulmonology, and Dr. Natasha Newsome NP in cardiology. Patient was also started on Zosyn by medicine. Patient also has evidence of acute onset cellulitis of the right lower extremity, ankle, and foot with an apparent puncture wound over the anterior medial ankle. Nursing states this wound was not evident previously. Patient is experiencing significant pain with palpation over the right ankle. Consultation was placed for Dr. Espinal in infectious disease who saw and examined the patient last evening. He has started the patient on cefazolin for antibiotic therapy along with local wound care with Silvadene wrap. Right lower extremity was also placed in a pneumatic boot. She is not complaining of any left foot or ankle pain. An ultrasound venous Doppler of the right lower extremity was performed yesterday which was negative for DVT. Physical Exam Intramedullary [place] for Intertrochanteric Fracture: Status post surgical day number 8 Patient is examined lying in bed in selective care Patient is awake and alert, and oriented 3; patient communicates very well today Vital signs stable Good chest excursion with deep inspiration and expiration; patient currently on 3L O2 nasal cannula Pneumatic cuffs not currently intact Incisions of the left hip is clean, dry, and intact; no erythema, purulence, or signs of infection; Dermabond remains intact No significant pain with palpation over the surgical sites Some bruising over the surgical sites and towards the left groin Full range of motion of ankles bilaterally Dorsiflexion, plantarflexion, and extensor hallucis longus positive sustained bilaterally Neurovascularly intact bilateral lower extremities Dressing over the right ankle and right lower extremity is clean, dry, and intact with no active drainage Right lower extremity currently placed in pneumatic boot and right lower extremity has been wrapped with a dressing per infectious disease for cellulitis treatment 1+ pitting edema left lower extremity at the ankle Johnston catheter has been discontinued Pertinent Studies: 06/26/2017: WBC 11.9 Hemoglobin 8.0 Troponin 0.107 Repeat troponin 0.085 06/27/2017: INR 1.4 06/29/2017: INR 1.7 Hemoglobin 8.8 WBC 6.3 07/01/2017: INR 6.6 Hemoglobin 9.1 07/02/2017: INR 8.1 Right lower extremity ultrasound venous Doppler duplex taken on 07/02/2017: Negative for DVT right lower extremity Assessment: Status post left intramedullary nail fixation for left intertrochanteric hip fracture Status post fall Left hip pain Recent episode of atrial fibrillation and RVR History of pulmonary embolism Cellulitis and pain with swelling over the right anterior medial ankle with what appears to be a small puncture wound Plan: 1. We will continue with our treatment plan as previously set forth regards to her left intertrochanteric hip fracture status post intramedullary nail fixation. Patient to remain nonweightbearing on the left lower extremity; patient may work with physical therapy to increase mobility and ambulation; patient will plan to be transferred to a bedside chair today. Incisions are well healed over the left hip. Patient no longer needs a dressing over the incision sites of the left hip. 2. Patient has new onset cellulitis and pain with swelling over the right lower extremity with an apparent puncture wound. Nursing states this was not evident previously. It is unclear how the patient sustained this wound. Consultation was placed with Dr. Espinal in infectious disease yesterday who has seen and examined the patient. He agrees with diagnosis of cellulitis of the right ankle and lower extremity. He will add cefazolin for antibiotic therapy along with local wound care with Silvadene wrap. Patient currently has a pneumatic boot intact over the right lower extremity. Dr. Espinal will continue to follow patient closely for further treatment and evaluation. She does not currently have a palpable fluid collection. We are not currently planning for incision and drainage of the right ankle. 3. Johnston catheter was discontinued yesterday 4. Continue pain control 5. Continue with anticoagulation therapy as previously prescribed prior to surgical intervention; medicine to monitor again anticoagulation therapy 6. Patient will continue be seen and examined by Dr. Holley in cardiology for treatment in regards to her recent atrial fibrillation and RVR; medicine states cardiology is planning to titrate amiodarone down to [address] Luz in Medicine and Dr. Roberts in pulmonology to continue following the patient for her other medical diagnosis 7. We'll continue to follow the patient closely; patient is planning for discharge to [facility] rehabilitation facility when cleared for discharge 8. Patient can follow-up with See Uribe PA-C or Dr. Andrew Zambrano at [facility] in 2-3 weeks following discharge
[2017-07-03] MEDS: IPRATROPIUM-ALBUTEROL 3 ML NEB INHALATION SCH ×4 (09:09→19:32)
[2017-07-03] MEDS: METOPROLOL TARTRATE 12.5 MG TAB PO SCH ×2 (09:11→20:35)
[2017-07-03] MEDS: CARBIDOPA-LEVODOPA 25-100 MG 1 EACH TAB PO SCH ×2 (09:11→20:35)
[2017-07-03] MEDS: guaiFENesin 600 MG TABLET.ER PO SCH ×2 (09:11→20:35)
[2017-07-03] MEDS: OXYBUTYNIN CHLORIDE 5 MG TAB PO SCH ×2 (09:11→20:36)
[2017-07-03] MEDS: AMIODARONE 200 MG TAB PO SCH (09:12)
[2017-07-03 10:16] VITALS: BMI 37.6
[2017-07-03 11:44] LABS: Glucose,Whole Blood 119 mg/dL (75-99)
[2017-07-03 15:12] LABS: INR 2.3 (<1.2); Prothrombin Time 21.1 sec (9.0-12.0)
[2017-07-03 17:00] LABS: Glucose,Whole Blood 149 mg/dL (75-99)
[2017-07-03] MEDS: MULTIVITAMINS, THERA 1 EACH TAB PO SCH (17:36)
[2017-07-03] MEDS: CALCIUM CARBONATE 500 MG CHEWABLE PO SCH (17:36)
--- NOTE | 2017-07-03 18:23 | PN ---
PROGRESS NOTE DATE OF SERVICE: 07/03/17. PRESENTING COMPLAINT: Femur fracture. INTERVAL HISTORY: Patient is status post repair of left femur fracture, also had atrial fibrillation now reverted to sinus rhythm. The patient had a small dose of vitamin K yesterday and INR has come down, no bleeding. The patient also being treated for cellulitis around the right ankle area. Does feel weak and tired. REVIEW OF SYSTEMS: Done for constitutional, cardiovascular, GI, pulmonary; relevant findings as above. CURRENT MEDICATIONS: Reviewed that include DuoNeb, Cordarone, Lopressor, Silvadene cream and IV cefazolin. PHYSICAL EXAMINATION: Temperature 98, pulse 74, respiratory 18, blood pressure 112/54, pulse ox 98% on 2 L. GENERAL APPEARANCE: Lying in bed, awake, tired-appearing. EYES: Pupils equal. Conjunctivae pale. HEENT: External nose and ears normal. Oral cavity normal. Decreased hearing. NECK: JVD not raised. Mass not palpable. RESPIRATORY: Effort normal, lungs decreased breath sounds. CARDIOVASCULAR: First and second sounds normal. No edema. ABDOMEN: Soft, nontender. Liver and spleen not palpable. PSYCHIATRY: Awake, answering questions. DERMATOLOGICAL: Slight redness on the right ankle area, improving. INVESTIGATIONS: INR 2.3. ASSESSMENT: 1. Left femur IT fracture displaced, secondary to fall followed by IT hip screw placement. 2. Paroxysmal atrial flutter fibrillation with rapid ventricular rate, now in sinus rhythm on Coumadin. 3. Coumadin toxicity with no evidence of bleeding. INR has come down after small dose of vitamin K. 4. Acute right lower cellulitis around the right ankle area. 5. Parkinson disease. 6. Dementia associated with Parkinson disease. 7. Chronic urinary incontinence. 8. Chronic pulmonary embolism while the patient is on Coumadin. 9. Moderate aortic stenosis, nonrheumatic. 10.Chronic osteoporosis. 11.Chronic gait dysfunction. The patient has a walker at baseline. PLAN: Continue with IV Ancef and we will start the patient on Coumadin 2.5 mg starting tonight. Other medication and treatment plan is to continue. MMODL / IJN: [id number] /
[2017-07-03] MEDS: WARFARIN 2.5 MG TAB PO SCH (18:31)
[2017-07-03] MEDS: DONEPEZIL 10 MG TAB PO SCH (20:35)
[2017-07-03] MEDS: ATORVASTATIN 20 MG TAB PO SCH (20:35)
[2017-07-03] MEDS: SENNOSIDES-DOCUSATE SODIUM 1 EACH TAB PO SCH (20:37)
[2017-07-03 20:38] LABS: Glucose,Whole Blood 127 mg/dL (75-99)
--- NOTE | 2017-07-03 21:31 | P.PN ---
Subjective Progress Note Date: 07/03/17 Principal diagnosis: pain right ankle 86-year-old female presents to hospital 9 days ago which point in time she suffered a fall resulting in a left intertrochanteric fracture. She subsequently was taken to the operating room with intramedullary nailing occurring for the fracture. With her age and debility including from dementia is having somewhat of a difficult recovery. She's had atrial fibrillation with rapid ventricular response that has now improved. She is a known history of a pulmonary embolus and is on chronic anticoagulation with Coumadin. With addition of amiodarone she's had an elevation of her INR and this is being monitored, patient without evidence of bleeding at this time. The patient has been seen by therapy and she is not weightbearing to the left leg but has been doing some therapy. She's being ready for transfer to extended care where she will receive care and therapy after the left hip fracture. The patient certainly is developed pain and swelling erythema to the right lower extremity especially distal around the ankle. There is notation that there was a small injury that almost appeared to be a puncture, however no known trauma had occurred. The erythema and tenderness have persisted and constantly the infectious diseases consultation was requested. The patient although poor historian is denying fever, chills or rigors. The site is uncomfortable. It has made some of her transfer activity much more difficult because of the pain at the foot and ankle area. She's not had this significant problem in the past. Objective - Vital Signs Vital signs: Vital Signs Temp 99.3 F 07/03/17 20:00 Pulse 84 07/03/17 20:00 Resp 18 07/03/17 20:00 BP 103/47 07/03/17 20:00 Pulse Ox 93 L 07/03/17 20:00 Intake & Output 07/03/17 07/03/17 07/04/17 06:59 18:59 06:59 Intake Total 210 1020 Balance 210 1020 Weight 109 kg 109 kg Intake: Intake, IV Titration 210 Amount Piperacillin-Tazobactam 3 50 .375 gm In Dextrose/Water 1 50ml.bag @ 12.5 mls/hr IVPB Q8H [facility] Rx#: [id number] Sodium Chloride 0.9% 1, 160 000 ml @ 40 mls/hr IV . Q24H [facility]O Rx#:[id number] Oral 1020 Other: Voiding Method Incontinent Incontinent Incontinent # Voids 1 1 # Bowel Movements 1 1 - Exam 86-year-old female who is comfortable but complains of pain in her right ankle HEENT: Anicteric conjunctiva are pink and moist nasal mucosa grossly intact without significant lesions, there is no thrush. Fully edentulous Neck: The neck is supple without significant lymphadenopathy or thyromegaly. Lungs: Good bilateral air entry without significant crackles or wheezing. There is no significant bronchial sounds. There is no egophony or dullness. Heart: Irregular with an audible S1 and S2 soft S4 no murmur click or rub PMI was nondisplaced Abdomen: Positive bowel sounds soft and nontender without palpable masses or organomegaly. There was no guarding or rebound. Extremities: The upper extremities have excellent pulses they are symmetric, no significant petechiae or telangiectasia. No splinter hemorrhages were noted. Left hip reveals evidence of the recent intramedullary nailing surgical wounds are healing well without erythema crepitance or fluctuance. There is no significant amount of edema or tenderness at that site. The right lower extremity shows evidence of the significant erythema tenderness to the ankle area and dorsum of the foot. She has discomfort when this is manipulated. The erythema ascends to just proximal to the ankle and is improved. There is no severe lymphadenopathy in inguinal area bilaterally. No other abnormal lymph nodes were noted. Neuro: Awake alert oriented to person but does not appear to have acute gross focal sensory motor deficits superimposed on her dementia - Labs CBC & Chem 7: 07/01/17 06:11 07/01/17 06:11 Labs: Abnormal Lab Results - Last 24 Hours (Table) 07/03/17 07/03/17 07/03/17 Range/Units 06:06 06:34 06:34 PT 21.1 H (9.0-12.0) sec INR 2.3 H (<1.2) APTT 31.6 H (22.0-30.0) sec POC Glucose (mg/dL) 115 H (75-99) mg/dL 07/03/17 07/03/17 07/03/17 Range/Units 11:39 16:58 20:26 PT (9.0-12.0) sec INR (<1.2) APTT (22.0-30.0) sec POC Glucose (mg/dL) 119 H 149 H 127 H (75-99) mg/dL Laboratory Results WBC 8.8 k/uL (3.8-10.6) 07/01/17 06:11 RBC 2.90 m/uL (3.80-5.40) L 07/01/17 06:11 Hgb 9.1 gm/dL (11.4-16.0) L 07/01/17 06:11 Hct 27.4 % (34.0-46.0) L 07/01/17 06:11 MCV 94.7 fL (80.0-100.0) 07/01/17 06:11 MCH 31.4 pg (25.0-35.0) 07/01/17 06:11 MCHC 33.1 g/dL (31.0-37.0) 07/01/17 06:11 RDW 14.4 % (11.5-15.5) 07/01/17 06:11 Plt Count 215 k/uL (150-450) 07/01/17 06:11 Neutrophils % 69 % 07/01/17 06:11 Lymphocytes % 20 % 07/01/17 06:11 Monocytes % 6 % 07/01/17 06:11 Eosinophils % 1 % 07/01/17 06:11 Basophils % 1 % 07/01/17 06:11 Neutrophils # 6.1 k/uL (1.3-7.7) 07/01/17 06:11 Lymphocytes # 1.8 k/uL (1.0-4.8) 07/01/17 06:11 Monocytes # 0.6 k/uL (0-1.0) 07/01/17 06:11 Eosinophils # 0.1 k/uL (0-0.7) 07/01/17 06:11 Basophils # 0.1 k/uL (0-0.2) 07/01/17 06:11 Hypochromasia Slight 07/01/17 06:11 PT 21.1 sec (9.0-12.0) H 07/03/17 06:34 INR 2.3 (<1.2) H 07/03/17 06:34 APTT 31.6 sec (22.0-30.0) H 07/03/17 06:34 Sodium 137 mmol/L (137-145) 07/01/17 06:11 Potassium 4.0 mmol/L (3.5-5.1) 07/01/17 06:11 Chloride 108 mmol/L (98-107) H 07/01/17 06:11 Carbon Dioxide 26 mmol/L (22-30) 07/01/17 06:11 Anion Gap 3 mmol/L 07/01/17 06:11 BUN 14 mg/dL (7-17) 07/01/17 06:11 Creatinine 0.87 mg/dL (0.52-1.04) 07/01/17 06:11 Est GFR (CKD-EPI)AfAm 69 (>60 ml/min/1.73 sqM) 07/01/17 06:11 Est GFR (CKD-EPI)NonAf 60 (>60 ml/min/1.73 sqM) 07/01/17 06:11 Glucose 91 mg/dL (74-99) 07/01/17 06:11 POC Glucose (mg/dL) 127 mg/dL (75-99) H 07/03/17 20:26 POC Glu Statistical Programmer ID Mena Ortiz 07/03/17 20:26 Lactic Ac Sepsis Rflx Y 06/25/17 22:31 Plasma Lactic Acid Prieto 1.2 mmol/L (0.7-2.0) 06/26/17 01:53 Calcium 6.8 mg/dL (8.4-10.2) L 07/01/17 06:11 Magnesium 1.9 mg/dL (1.6-2.3) 06/27/17 21:15 Total Bilirubin 1.6 mg/dL (0.2-1.3) H 06/24/17 07:56 AST 412 U/L (14-36) H 06/24/17 07:56 ALT 50 U/L (9-52) 06/24/17 07:56 Alkaline Phosphatase 105 U/L (38-126) 06/24/17 07:56 Troponin I 0.085 ng/mL (0.000-0.034) H* 06/26/17 17:32 NT-Pro-B Natriuret Pep 1960 pg/mL 06/26/17 13:22 Total Protein 5.5 g/dL (6.3-8.2) L 06/24/17 07:56 Albumin 3.0 g/dL (3.5-5.0) L 06/24/17 07:56 Urine Color Yellow 06/23/17 12:17 Urine Appearance Cloudy (Clear) H 06/23/17 12:17 Urine pH 6.5 (5.0-8.0) 06/23/17 12:17 Ur Specific [place] 1.011 (1.001-1.035) 06/23/17 12:17 Urine Protein Trace (Negative) H 06/23/17 12:17 Urine Glucose (UA) Negative (Negative) 06/23/17 12:17 Urine Ketones Negative (Negative) 06/23/17 12:17 Urine Blood Negative (Negative) 06/23/17 12:17 Urine Nitrite Negative (Negative) 06/23/17 12:17 Urine Bilirubin Negative (Negative) 06/23/17 12:17 Urine Urobilinogen <2.0 mg/dL (<2.0) 06/23/17 12:17 Ur Leukocyte Esterase Negative (Negative) 06/23/17 12:17 Urine RBC 1 /hpf (0-5) 06/23/17 12:17 Urine WBC 1 /hpf (0-5) 06/23/17 12:17 Ur Squamous Epith Cells 1 /hpf (0-4) 06/23/17 12:17 Amorphous Sediment Rare /hpf (None) H 06/23/17 12:17 Urine Mucus Rare /hpf (None) H 06/23/17 12:17 C. difficile (EIA) Intrp Negative (Negative) 07/02/17 10:09 Blood Type B Positive 06/28/17 01:40 Blood Type Confirm B Positive 06/28/17 02:49 Blood Type Recheck CABO Indicated 06/28/17 01:40 Antibody Screen NEGATIVE 06/28/17 01:40 Crossmatch See Detail 06/28/17 01:40 Spec Expiration Date 07/01/2017233906/28/17 01:40 Microbiology 06/25/17 21:30 Blood Blood Culture - Final No Growth after 144 hours 06/25/17 20:50 Blood Blood Culture - Final No Growth after 144 hours Assessment and Plan (1) Atrial fibrillation with RVR Current Visit: Yes Status: Acute Code(s): I48.91 - UNSPECIFIED ATRIAL FIBRILLATION SNOMED Code(s): 956578862789210 (2) History of pulmonary embolism Current Visit: Yes Status: Acute Code(s): Z86.711 - PERSONAL HISTORY OF PULMONARY EMBOLISM SNOMED Code(s): 939602215 (3) Fracture, intertrochanteric, left femur Current Visit: Yes Status: Acute Code(s): S72.142A - DISPLACED INTERTROCHANTERIC FRACTURE OF LEFT FEMUR, INIT SNOMED Code(s): 625250171 (4) Elevated INR Current Visit: Yes Status: Acute Code(s): R79.1 - ABNORMAL COAGULATION PROFILE SNOMED Code(s): 138620940 (5) Cellulitis of right leg Narrative/Plan: 86-year-old female presents to Hospital 06/23/2017 after a fall and resultant left intertrochanteric hip fracture. She was cared for by orthopedics and had the intramedullary nailing performed to the left hip fracture. She doing relatively well but had difficulties with atrial fibrillation with RVR is now better controlled. The patient however has developed swelling erythema and pain to the right foot and ankle area. There is notation that there may have been a puncture injury that but is not evident at this time. There is however distinct tenderness to range of motion and touch. There is erythema without purulence or lesions or drainage. Patient has evidence of the distinct cellulitis of the right foot and ankle area. Antibiotic therapy will be utilized with cefazolin, local wound care with Silvadene wrap will be applied. Doppler will be requested to ensure there is not a deep venous thrombosis, with her anticoagulation would seem unlikely but would like to ensure is not the case. Elevation of liver she tolerates will be helpful. Pain control appears to be adequate. It appears that she is further improved she will be transferred to the extended care facility for her further rehab. Medicine is following closely for her elevated INR. 07/03/2017 patient is feeling better today. Denies any fevers chills rigors or sweats. Pain of the ankle is improved. Left hip pain without acute difficulties. Current Visit: Yes Status: Acute Code(s): L03.115 - CELLULITIS OF RIGHT LOWER LIMB SNOMED Code(s): 621638689
[2017-07-04] MEDS: INSULIN ASPART 100 UNIT/ML 1 ML 10 ML VIAL SQ SCH ×5 (06:19→21:16)
[2017-07-04] MEDS: ceFAZolin IN SWFI 2 GM/20 ML SYRINGE IVP SCH ×3 (06:20→15:58)
[2017-07-04 06:35] LABS: Glucose,Whole Blood 107 mg/dL (75-99)
[2017-07-04 06:50] LABS: INR 1.5 (<1.2); Prothrombin Time 13.8 sec (9.0-12.0)
[2017-07-04] MEDS: PANTOPRAZOLE 40 MG TABLET PO SCH (06:58)
[2017-07-04] MEDS: guaiFENesin 600 MG TABLET.ER PO SCH ×2 (08:19→21:27)
[2017-07-04] MEDS: OXYBUTYNIN CHLORIDE 5 MG TAB PO SCH ×2 (08:19→21:27)
[2017-07-04] MEDS: METOPROLOL TARTRATE 12.5 MG TAB PO SCH ×2 (08:19→21:26)
[2017-07-04] MEDS: CARBIDOPA-LEVODOPA 25-100 MG 1 EACH TAB PO SCH ×2 (08:20→21:27)
[2017-07-04] MEDS: AMIODARONE 200 MG TAB PO SCH (08:20)
[2017-07-04] MEDS: IPRATROPIUM-ALBUTEROL 3 ML NEB INHALATION SCH ×4 (08:39→19:46)
[2017-07-04 11:30] LABS: Glucose,Whole Blood 139 mg/dL (75-99)
--- NOTE | 2017-07-04 12:23 | P.PN ---
Progress Note - Text Progress Note Date: 07/04/17 Patient is a very pleasant 86-year-old female who is seen and examined in elective care for further evaluation for her left hip. She was seen with one of her daughters at the bedside today. She is status post intramedullary nail fixation for left intertrochanteric hip fracture performed today, 06/25/2017. Patient was previously on [address] when she was transferred to bedside chair when she went into atrial fibrillation and RVR. She was transferred to the the ICU for treatment and evaluation. Nursing states she was able to spontaneously return to her baseline EKG settings. Patient was started on amiodarone drip in the ICU. She continues to be seen and examined by Dr. Holley in cardiology. She has been transitioned to oral amiodarone. Previously she was able to transfer from the ICU to selective care. Nursing states she did have an episode of atrial fibrillation and RVR night in selective care which spontaneously resolved. Patient has maintained sinus rhythm. Patient is lying comfortably in bed. She states she is not currently experiencing any significant pain in her left hip and feels her hip pain has significantly improved. Nursing states her pain has been adequately controlled. Patient has been receiving Ultram, Tylenol #3, and Dilaudid as prescribed as needed for relief of her symptoms. Patient previously underwent venous ultrasound Doppler of the bilateral lower extremities while in the ICU which were negative for DVT. Patient's INR has had significant increase over the weekend is currently 8.1 following lab results yesterday. Following today's labs on 07/04/2017, her INR has reduced to 1.5. Patient continues to be seen by Dr. Luz in medicine, Dr. Roberts in pulmonology, and Dr. Natasha Newsome NP in cardiology. Patient was also started on Zosyn by medicine. Patient also has evidence of acute onset cellulitis of the right lower extremity, ankle, and foot with an apparent puncture wound over the anterior medial ankle. Nursing states this wound was not evident previously. Since being seen and examined yesterday, patient has had some improvement in regards to pain, erythema, and swelling of the right ankle and lower extremity. Patient continues to be seen and examined by Dr. Espinal in infectious disease and continues to receive cefazolin for antibiotic therapy along with local wound care with Silvadene wrap. She is not complaining of any left foot or ankle pain. An ultrasound venous Doppler of the right lower extremity was performed Sunday which was negative for DVT. Nursing states patient has become more stable M is planned to be transferred to [address]. today. Patient states physical therapy and was able to get her up to the side of the bed and work through some therapy while sitting on the bedside. Patient states therapy has not helped transfer her to a bedside chair. Physical Exam Intramedullary [place] for Intertrochanteric Fracture: Status post surgical day number 9 Patient is examined lying in bed in [facility] care Patient is awake and alert, and oriented 3; patient communicates very well today Vital signs stable Good chest excursion with deep inspiration and expiration; patient currently on 3L O2 nasal cannula Pneumatic cuffs not currently intact Incisions of the left hip is clean, dry, and intact; no erythema, purulence, or signs of infection; Dermabond remains intact No significant pain with palpation over the surgical sites Some bruising over the surgical sites and towards the left groin Full range of motion of ankles bilaterally Dorsiflexion, plantarflexion, and extensor hallucis longus positive sustained bilaterally Neurovascularly intact bilateral lower extremities Dressing over the right ankle and right lower extremity is clean, dry, and intact with no active drainage Right lower extremity has been wrapped with a dressing per infectious disease for cellulitis treatment Erythema, swelling, and pain has improved over the right lower extremity and ankle as compared to yesterday. 1+ pitting edema left lower extremity at the ankle Johnston catheter has been previously discontinued Pertinent Studies: 06/26/2017: WBC 11.9 Hemoglobin 8.0 Troponin 0.107 Repeat troponin 0.085 06/27/2017: INR 1.4 06/29/2017: INR 1.7 Hemoglobin 8.8 WBC 6.3 07/01/2017: INR 6.6 Hemoglobin 9.1 07/02/2017: INR 8.1 Right lower extremity ultrasound venous Doppler duplex taken on 07/02/2017: Negative for DVT right lower extremity 07/04/2017: INR 1.5 Assessment: Status post left intramedullary nail fixation for left intertrochanteric hip fracture Status post fall Left hip pain Recent episode of atrial fibrillation and RVR History of pulmonary embolism Cellulitis and pain with swelling over the right anterior medial ankle with what appears to be a small puncture wound Plan: 1. We will continue with our treatment plan as previously set forth regards to her left intertrochanteric hip fracture status post intramedullary nail fixation. Patient to remain nonweightbearing on the left lower extremity; patient may work with physical therapy to increase mobility and ambulation; patient will plan to be transferred to a bedside chair today. Incisions are well healed over the left hip. Patient no longer needs a dressing over the incision sites of the left hip. 2. Patient has new onset cellulitis and pain with swelling over the right lower extremity with an apparent puncture wound. Nursing states this was not evident previously. It is unclear how the patient sustained this wound. Consultation was placed with Dr. Espinal in infectious disease Sunday who has seen and examined the patient. He agreed with diagnosis of cellulitis of the right ankle and lower extremity. He added cefazolin for antibiotic therapy along with local wound care with Silvadene wrap. Since being seen and examined yesterday, she has had improvement in regards to erythema, swelling, and pain of the right ankle and lower extremity. Dr. Espinal will continue to follow patient closely for further treatment and evaluation. She does not currently have a palpable fluid collection. We are not currently planning for incision and drainage of the right ankle. 3. Per nursing, patient is planned to be transferred to [address] [place] [address] today. 4. Continue pain control 5. Continue with anticoagulation therapy as previously prescribed prior to surgical intervention; medicine to monitor again anticoagulation therapy 6. Patient will continue be seen and examined by Dr. Holley in cardiology for treatment in regards to her recent atrial fibrillation and RVR; medicine states cardiology had planned to titrate amiodarone down to [address] Luz in Medicine and Dr. Roberts in pulmonology will continue following the patient for her other medical diagnosis 7. We'll continue to follow the patient closely; patient is planning for discharge to [facility] when medically cleared for discharge 8. Patient can follow-up with See Uribe PA-C or Dr. Andrew Zambrano at [facility] in 2-3 weeks following discharge
[2017-07-04] MEDS: MULTIVITAMINS, THERA 1 EACH TAB PO SCH (13:16)
[2017-07-04] MEDS: CALCIUM CARBONATE 500 MG CHEWABLE PO SCH (13:16)
[2017-07-04 16:18] LABS: Glucose,Whole Blood 137 mg/dL (75-99)
[2017-07-04] MEDS: WARFARIN 2.5 MG TAB PO SCH (16:58)
[2017-07-04 17:44] LABS: Glucose,Whole Blood 119 mg/dL (75-99)
[2017-07-04 19:37] LABS: Magnesium 1.6 mg/dL (1.6-2.3); Potassium 4.2 mmol/L (3.5-5.1)
[2017-07-04 19:41] LABS: Anisocytosis Slight; Basophils % (A) 1 %; Eosinophils # (A) 0.1 k/uL (0-0.7); Eosinophils % (A) 2 %; HCT 25.8 % (34.0-46.0); HGB 8.1 gm/dL (11.4-16.0); Hypochromasia Slight; Lymphocytes # (A) 1.6 k/uL (1.0-4.8); Lymphocytes % (A) 19 %; MCH 31.1 pg (25.0-35.0); MCHC 31.3 g/dL (31.0-37.0); MCV 99.2 fL (80.0-100.0); Macrocytosis Slight; Mean Platelet Volume 9.3; Monocytes # (A) 0.5 k/uL (0-1.0); Monocytes % (A) 6 %; Neutrophils % (A) 71 %; Platelet Count 313 k/uL (150-450); Poikilocytosis Slight; WBC 8.5 k/uL (3.8-10.6)
[2017-07-04 20:18] LABS: Glucose,Whole Blood 167 mg/dL (75-99)
[2017-07-04] MEDS: SENNOSIDES-DOCUSATE SODIUM 1 EACH TAB PO SCH (20:57)
[2017-07-04] MEDS: ATORVASTATIN 20 MG TAB PO SCH (21:27)
[2017-07-04] MEDS: DONEPEZIL 10 MG TAB PO SCH (21:27)
[2017-07-04] MEDS: ACETAMINOPHEN TAB 325 MG TAB PO PRN (21:30)
--- NOTE | 2017-07-04 22:50 | PN ---
PROGRESS NOTE DATE OF SERVICE: July 04, 2017. PRESENTING COMPLAINT: Femur fracture. INTERVAL HISTORY: Patient is status post left femur fracture and repair, currently being treated for cellulitis around the right ankle area getting better. He continues to feel weak and tired. REVIEW OF SYSTEMS: Done for constitutional, cardiovascular, GI, pulmonary, relevant findings as above. CURRENT MEDICATIONS: Reviewed that include IV Ancef. EXAMINATION: Temperature 98, pulse 80, respiratory 18, blood pressure 120/66, pulse ox 93% on room air. General appearance: Lying in bed awake. Eyes: Pupils equal, conjunctivae pale. HEENT: External appearance of nose and ears normal. Oral cavity normal. Decreased hearing. Neck JVD not raised. Mass not palpable. Respiratory effort lungs decreased breath sounds. Cardiovascular: 1st and 2nd sounds normal. No edema. ABDOMEN: Soft, nontender. Liver and spleen not palpable. Psychiatry: Awake, answering questions. Dermatological: Dressing over the right ankle area. INVESTIGATIONS: Potassium 4.2, Accu-Cheks are noted. White count 8.5, hemoglobin 8.1, INR 1.5. ASSESSMENT: 1. Left femur, right hip fracture, displaced, secondary to fall followed by the hip screw placement. 2. Proximal atrial flutter fibrillation with rapid ventricular rate, now in sinus rhythm on Coumadin. 3. Status post Coumadin toxicity. 4. Acute right lower extremity cellulitis around the right ankle area. 5. Parkinson disease. 6. Dementia associated with Parkinson disease. 7. Chronic urinary incontinence. 8. Chronic pulmonary embolism for which patient is on Coumadin. 9. Moderate aortic stenosis nonrheumatic. 10.Chronic osteoporosis. 11.Chronic gait dysfunction. Patient has a walker baseline. PLAN: The patient is back on Coumadin. Follow INR. The patient is medically stable to go back to the ECF. The patient should be able to be switched over to Keflex when okay with Dr. Espinal. MMODL / IJN: [id number] /
--- NOTE | 2017-07-05 01:01 | P.PN ---
Subjective Progress Note Date: 07/04/17 Principal diagnosis: pain right ankle 86-year-old female presents to hospital 9 days ago which point in time she suffered a fall resulting in a left intertrochanteric fracture. She subsequently was taken to the operating room with intramedullary nailing occurring for the fracture. With her age and debility including from dementia is having somewhat of a difficult recovery. She's had atrial fibrillation with rapid ventricular response that has now improved. She is a known history of a pulmonary embolus and is on chronic anticoagulation with Coumadin. With addition of amiodarone she's had an elevation of her INR and this is being monitored, patient without evidence of bleeding at this time. The patient has been seen by therapy and she is not weightbearing to the left leg but has been doing some therapy. She's being ready for transfer to extended care where she will receive care and therapy after the left hip fracture. The patient certainly is developed pain and swelling erythema to the right lower extremity especially distal around the ankle. There is notation that there was a small injury that almost appeared to be a puncture, however no known trauma had occurred. The erythema and tenderness have persisted and constantly the infectious diseases consultation was requested. The patient although poor historian is denying fever, chills or rigors. The site is uncomfortable. It has made some of her transfer activity much more difficult because of the pain at the foot and ankle area. She's not had this significant problem in the past. Objective - Vital Signs Vital signs: Vital Signs Temp 98.5 F 07/04/17 19:30 Pulse 68 07/04/17 19:47 Resp 16 07/04/17 19:30 BP 129/78 07/04/17 19:30 Pulse Ox 84 L 07/04/17 19:30 Intake & Output 07/04/17 07/04/17 07/05/17 06:59 18:59 06:59 Intake Total 250 930 Balance 250 930 Weight 105 kg Intake: Oral 250 930 Other: Voiding Method Incontinent Incontinent Incontinent # Voids 1 0 # Bowel Movements 1 - Exam 86-year-old female who is comfortable but complains of pain in her right ankle HEENT: Anicteric conjunctiva are pink and moist nasal mucosa grossly intact without significant lesions, there is no thrush. Fully edentulous Neck: The neck is supple without significant lymphadenopathy or thyromegaly. Lungs: Good bilateral air entry without significant crackles or wheezing. There is no significant bronchial sounds. There is no egophony or dullness. Heart: Irregular with an audible S1 and S2 soft S4 no murmur click or rub PMI was nondisplaced Abdomen: Positive bowel sounds soft and nontender without palpable masses or organomegaly. There was no guarding or rebound. Extremities: The upper extremities have excellent pulses they are symmetric, no significant petechiae or telangiectasia. No splinter hemorrhages were noted. Left hip reveals evidence of the recent intramedullary nailing surgical wounds are healing well without erythema crepitance or fluctuance. There is no significant amount of edema or tenderness at that site. The right lower extremity shows evidence of the significant erythema tenderness to the ankle area and dorsum of the foot. She has discomfort when this is manipulated. The erythema has now markedly improved. Tenderness is improved. Neuro: Awake alert oriented to person but does not appear to have acute gross focal sensory motor deficits superimposed on her dementia - Labs CBC & Chem 7: 07/04/17 06:00 07/04/17 18:55 Labs: Abnormal Lab Results - Last 24 Hours (Table) 07/04/17 07/04/17 07/04/17 Range/Units 06:00 06:14 06:16 RBC 2.60 L (3.80-5.40) m/uL Hgb 8.1 L (11.4-16.0) gm/dL Hct 25.8 L (34.0-46.0) % RDW 17.0 H (11.5-15.5) % PT 13.8 H (9.0-12.0) sec INR 1.5 H (<1.2) POC Glucose (mg/dL) 107 H (75-99) mg/dL 07/04/17 07/04/17 07/04/17 Range/Units 11:28 16:15 17:41 RBC (3.80-5.40) m/uL Hgb (11.4-16.0) gm/dL Hct (34.0-46.0) % RDW (11.5-15.5) % PT (9.0-12.0) sec INR (<1.2) POC Glucose (mg/dL) 139 H 137 H 119 H (75-99) mg/dL 07/04/17 Range/Units 20:15 RBC (3.80-5.40) m/uL Hgb (11.4-16.0) gm/dL Hct (34.0-46.0) % RDW (11.5-15.5) % PT (9.0-12.0) sec INR (<1.2) POC Glucose (mg/dL) 167 H (75-99) mg/dL Laboratory Results WBC 8.5 k/uL (3.8-10.6) 07/04/17 06:00 RBC 2.60 m/uL (3.80-5.40) L 07/04/17 06:00 Hgb 8.1 gm/dL (11.4-16.0) L 07/04/17 06:00 Hct 25.8 % (34.0-46.0) L 07/04/17 06:00 MCV 99.2 fL (80.0-100.0) 07/04/17 06:00 MCH 31.1 pg (25.0-35.0) 07/04/17 06:00 MCHC 31.3 g/dL (31.0-37.0) 07/04/17 06:00 RDW 17.0 % (11.5-15.5) H 07/04/17 06:00 Plt Count 313 k/uL (150-450) 07/04/17 06:00 Neutrophils % 71 % 07/04/17 06:00 Lymphocytes % 19 % 07/04/17 06:00 Monocytes % 6 % 07/04/17 06:00 Eosinophils % 2 % 07/04/17 06:00 Basophils % 1 % 07/04/17 06:00 Neutrophils # 6.0 k/uL (1.3-7.7) 07/04/17 06:00 Lymphocytes # 1.6 k/uL (1.0-4.8) 07/04/17 06:00 Monocytes # 0.5 k/uL (0-1.0) 07/04/17 06:00 Eosinophils # 0.1 k/uL (0-0.7) 07/04/17 06:00 Basophils # 0.0 k/uL (0-0.2) 07/04/17 06:00 Hypochromasia Slight 07/04/17 06:00 Poikilocytosis Slight 07/04/17 06:00 Anisocytosis Slight 07/04/17 06:00 Macrocytosis Slight 07/04/17 06:00 PT 13.8 sec (9.0-12.0) H 07/04/17 06:14 INR 1.5 (<1.2) H 07/04/17 06:14 APTT 31.6 sec (22.0-30.0) H 07/03/17 06:34 Sodium 137 mmol/L (137-145) 07/01/17 06:11 Potassium 4.2 mmol/L (3.5-5.1) 07/04/17 18:55 Chloride 108 mmol/L (98-107) H 07/01/17 06:11 Carbon Dioxide 26 mmol/L (22-30) 07/01/17 06:11 Anion Gap 3 mmol/L 07/01/17 06:11 BUN 14 mg/dL (7-17) 07/01/17 06:11 Creatinine 0.87 mg/dL (0.52-1.04) 07/01/17 06:11 Est GFR (CKD-EPI)AfAm 69 (>60 ml/min/1.73 sqM) 07/01/17 06:11 Est GFR (CKD-EPI)NonAf 60 (>60 ml/min/1.73 sqM) 07/01/17 06:11 Glucose 91 mg/dL (74-99) 07/01/17 06:11 POC Glucose (mg/dL) 167 mg/dL (75-99) H 07/04/17 20:15 POC Glu Filtration Operator Miranda Raymond 07/04/17 20:15 Lactic Ac Sepsis Rflx Y 06/25/17 22:31 Plasma Lactic Acid Prieto 1.2 mmol/L (0.7-2.0) 06/26/17 01:53 Calcium 6.8 mg/dL (8.4-10.2) L 07/01/17 06:11 Magnesium 1.6 mg/dL (1.6-2.3) 07/04/17 18:55 Total Bilirubin 1.6 mg/dL (0.2-1.3) H 06/24/17 07:56 AST 412 U/L (14-36) H 06/24/17 07:56 ALT 50 U/L (9-52) 06/24/17 07:56 Alkaline Phosphatase 105 U/L (38-126) 06/24/17 07:56 Troponin I 0.085 ng/mL (0.000-0.034) H* 06/26/17 17:32 NT-Pro-B Natriuret Pep 1960 pg/mL 06/26/17 13:22 Total Protein 5.5 g/dL (6.3-8.2) L 06/24/17 07:56 Albumin 3.0 g/dL (3.5-5.0) L 06/24/17 07:56 Urine Color Yellow 06/23/17 12:17 Urine Appearance Cloudy (Clear) H 06/23/17 12:17 Urine pH 6.5 (5.0-8.0) 06/23/17 12:17 Ur Specific [place] 1.011 (1.001-1.035) 06/23/17 12:17 Urine Protein Trace (Negative) H 06/23/17 12:17 Urine Glucose (UA) Negative (Negative) 06/23/17 12:17 Urine Ketones Negative (Negative) 06/23/17 12:17 Urine Blood Negative (Negative) 06/23/17 12:17 Urine Nitrite Negative (Negative) 06/23/17 12:17 Urine Bilirubin Negative (Negative) 06/23/17 12:17 Urine Urobilinogen <2.0 mg/dL (<2.0) 06/23/17 12:17 Ur Leukocyte Esterase Negative (Negative) 06/23/17 12:17 Urine RBC 1 /hpf (0-5) 06/23/17 12:17 Urine WBC 1 /hpf (0-5) 06/23/17 12:17 Ur Squamous Epith Cells 1 /hpf (0-4) 06/23/17 12:17 Amorphous Sediment Rare /hpf (None) H 06/23/17 12:17 Urine Mucus Rare /hpf (None) H 06/23/17 12:17 C. difficile (EIA) Intrp Negative (Negative) 07/02/17 10:09 Blood Type B Positive 06/28/17 01:40 Blood Type Confirm B Positive 06/28/17 02:49 Blood Type Recheck CABO Indicated 06/28/17 01:40 Antibody Screen NEGATIVE 06/28/17 01:40 Crossmatch See Detail 06/28/17 01:40 Spec Expiration Date 07/01/2017 - 2340 06/28/17 01:40 Microbiology 06/25/17 21:30 Blood Blood Culture - Final No Growth after 144 hours 06/25/17 20:50 Blood Blood Culture - Final No Growth after 144 hours Assessment and Plan (1) Atrial fibrillation with RVR Current Visit: Yes Status: Acute Code(s): I48.91 - UNSPECIFIED ATRIAL FIBRILLATION SNOMED Code(s): 179273981100206 (2) History of pulmonary embolism Current Visit: Yes Status: Acute Code(s): Z86.711 - PERSONAL HISTORY OF PULMONARY EMBOLISM SNOMED Code(s): 088862496 (3) Fracture, intertrochanteric, left femur Current Visit: Yes Status: Acute Code(s): S72.142A - DISPLACED INTERTROCHANTERIC FRACTURE OF LEFT FEMUR, INIT SNOMED Code(s): 166262556 (4) Elevated INR Current Visit: Yes Status: Acute Code(s): R79.1 - ABNORMAL COAGULATION PROFILE SNOMED Code(s): 187886839 (5) Cellulitis of right leg Narrative/Plan: 86-year-old female presents to Hospital 06/23/2017 after a fall and resultant left intertrochanteric hip fracture. She was cared for by orthopedics and had the intramedullary nailing performed to the left hip fracture. She doing relatively well but had difficulties with atrial fibrillation with RVR is now better controlled. The patient however has developed swelling erythema and pain to the right foot and ankle area. There is notation that there may have been a puncture injury that but is not evident at this time. There is however distinct tenderness to range of motion and touch. There is erythema without purulence or lesions or drainage. Patient has evidence of the distinct cellulitis of the right foot and ankle area. Antibiotic therapy will be utilized with cefazolin, local wound care with Silvadene wrap will be applied. Doppler will be requested to ensure there is not a deep venous thrombosis, with her anticoagulation would seem unlikely but would like to ensure is not the case. Elevation of liver she tolerates will be helpful. Pain control appears to be adequate. It appears that she is further improved she will be transferred to the extended care facility for her further rehab. Medicine is following closely for her elevated INR. 07/03/2017 patient is feeling better today. Denies any fevers chills rigors or sweats. Pain of the ankle is improved. Left hip pain without acute difficulties. 07/04/2017 patient has further improvement. The pain swelling and erythema to the right foot is much improved. Left hip pain is also improved. There is notation of her transfer to extended care soon. Given the marked improvement of the foot will transition to oral cefuroxime 500 mg every 12 hours for 7 days at the time of her transfer. Local wound care as well as some Silvadene wrap this can be continued for the next several days until it is completely resolved. Ambulation and physical therapy is per his orthopedic surgeon regarding the recent left hip fracture and repair. Current Visit: Yes Status: Acute Code(s): L03.115 - CELLULITIS OF RIGHT LOWER LIMB SNOMED Code(s): 024238633
[2017-07-05] MEDS: ceFAZolin IN SWFI 2 GM/20 ML SYRINGE IVP SCH ×2 (01:41→12:07)
[2017-07-05 07:44] LABS: Glucose,Whole Blood 113 mg/dL (75-99)
[2017-07-05 08:50] VITALS: RESP 16
[2017-07-05] MEDS: IPRATROPIUM-ALBUTEROL 3 ML NEB INHALATION SCH ×2 (09:17→12:40)
[2017-07-05] MEDS: INSULIN ASPART 100 UNIT/ML 1 ML 10 ML VIAL SQ SCH ×2 (09:25→12:06)
--- NOTE | 2017-07-05 10:04 | P.DS ---
Providers Date of admission: 06/23/17 15:39 Attending physician: Tereza Zambrano Consults: 06/23/17 16:07 Consult Physician Stat Consulting Provider: Caesar Jones Consult Reason/Comments: Medical clearance Do you want consulting provider notified?: Yes 06/26/17 10:48 Consult Physician Stat Consulting Provider: Lawson Roberts Consult Reason/Comments: icu management Do you want consulting provider notified?: Yes 06/26/17 10:49 Consult Physician Stat Consulting Provider: Malick Holley Consult Reason/Comments: a fib rvr Do you want consulting provider notified?: Yes 06/27/17 08:58 Consult Physician Routine Consulting Provider: Rojelio Tucker Consult Reason/Comments: PICC line placement Do you want consulting provider notified?: Yes 07/02/17 08:56 Consult Physician Urgent Consulting Provider: Rojelio Espinal Consult Reason/Comments: Right ankle cellulitis with apparent puncture wound Do you want consulting provider notified?: Yes Primary care physician: Rodriguez Deutsch Hospital Course: Postoperative day #10 The patient presented on the day of admission as per her consultation note. The patient had sustained a fall and suffered a left intertrochanteric femur fracture. She underwent operative management with intramedullary hip screw placement on Sunday, June 25. Patient has a number of medical issues including history of atrial fibrillation on Coumadin as well as dementia. Currently the patient is making progress. She had an issue with a drill for ablation with rapid ventricular response and hypotension and was managed acutely for this here in Hospital and is currently at a sinus rhythm with amiodarone orally. She feels her right foot cellulitis is improving as well. She feels her pain at her left leg is improving. She has been able to make very slow progress with her mobility given her pain at her right foot from the cellulitis and her nonweightbearing status on left lower extremity with her hip fracture. She denies any chest pain shortness of breath currently Physical Exam The incision site is clean dry and intact. There is no erythema no drainage. There is no purulence no evidence of infection. Her hip is soft and nontender. The incision sites appear to be healing well Abdomen soft and nontender. Chest has good excursion with deep inspiration and expiration. The patient has active and passive range of motion intact at the upper and lower extremities. There is no acute change in neurologic status. She has sustained dorsal flexion plantar flexion and extensor hallucis longus bilaterally. Her right lower extremity cellulitis at her ankle and foot are improving substantially. She has good motion in her right foot. She has local dressing with Silvadene and gauze. Hospital Course Postoperative day #10 Patient was initially admitted in regards to her left hip fracture. She underwent medical clearance and holding of her Coumadin and was able to undergo her surgery on 06/25/2017 which was 10 days, The patient has been making slow progress postoperatively. In her early postoperative course she had some hypotension and was having atrial fibrillation with rapid ventricular response. She was transferred up to [facility] and had to have evaluation and treatment with amiodarone drip and evaluation with cardiology as well as medicine. She was able to be stabilized in terms of her rhythm and her blood pressure. She is now been able to be converted over to oral amiodarone and is maintaining a steady sinus rhythm without any symptomatology. She is continuing her Coumadin as well. They have completed the prophylactic antibiotics without any signs or symptoms of infection at her hip. The patient did have some treatment for some changes on her chest x-ray for possible pneumonia but this seems to be cleared. The patient had developed some cellulitis on her right lower extremity at her foot and ankle which is the contralateral side to her hip injury. This is causing her pain and significant difficulty with increasing her mobility. She is making good progress with this with infectious disease management with Silvadene cream and antibiotics. She is Bennell able to be converted over to oral antibiotics and will continue her oral antibiotics as per infectious disease service. She is going take cefepime orally. The patient has been able to advance their diet, and is tolerating diet adequately. The pain was initially controlled with IV medications and is now controlled appropriately with oral medications. The patient has been able to increase their mobilization now that her right foot is improving while maintaining her left lower extremity nonweightbearing status. The patient has been making some progress and is now stable with her cardiac status as well as her infection at her right foot and ankle and her left hip fracture fixation. She is continuing her oral antibiotics as well as her Coumadin and amiodarone. She will continue her other medications as well. I think she is okay for discharge to [facility] facility when she is cleared with medicine service. She should maintain her left lower extremity nonweightbearing status. I answered their questions to the best of my ability in a language that they can understand and they are agreeable with the plan. They will follow up as directed with our service in approximately 2 weeks as well as with her medical doctor. Patient Condition at Discharge: Fair Plan - Discharge Summary Discharge Rx Participant: No New Discharge Prescriptions: No Action Warfarin Sodium 6 mg PO SUMOWEFR Triamterene-Hctz 37.5-25Mg [Maxzide 37.5-25] 1 tab PO DAILY Carbidopa-Levodopa 25-100 mg [Sinemet 25-100 mg] 1 tab PO BID Simvastatin [Zocor] 40 mg PO HS Oxybutynin Chloride [Ditropan] 5 mg PO BID Donepezil HCl [Aricept] 10 mg PO HS Warfarin Sodium 3 mg PO TUTHSA Multivitamins, Thera [Multivitamin (formulary)] 1 tab PO DAILY Calcium Carbonate [Calcium] 600 mg PO DAILY Discharge Medication List Carbidopa-Levodopa 25-100 mg [Sinemet 25-100 mg] 1 tab PO BID 10/05/14 [History] Donepezil HCl [Aricept] 10 mg PO HS 10/05/14 [History] Oxybutynin Chloride [Ditropan] 5 mg PO BID 10/05/14 [History] Simvastatin [Zocor] 40 mg PO HS 10/05/14 [History] Triamterene-Hctz 37.5-25Mg [Maxzide 37.5-25] 1 tab PO DAILY 10/05/14 [History] Warfarin Sodium 6 mg PO SUMOWEFR 10/05/14 [History] Calcium Carbonate [Calcium] 600 mg PO DAILY 07/08/15 [History] Multivitamins, Thera [Multivitamin (formulary)] 1 tab PO DAILY 07/08/15 [History ] Warfarin Sodium 3 mg PO TUTHSA 07/08/15 [History] Follow up Appointment(s)/Referral(s): See Uribe PAC [PHYSICIAN TRANSPORT CONDUCTOR] - 07/20/17 2:00 pm (Patient may follow-up with See Uribe PA-C or Dr. Andrew Zambrano at [facility] in 2-3 weeks following discharge. ) Rodriguez Deutsch MD [Primary Care Provider] - 1-2 days Activity/Diet/Wound Care/Special Instructions: 1. Nonweightbearing on the left lower extremity 2. Keep dressing over the left hip clean, dry, and intact 3. Patient may shower without a dressing intact over the incisions of the left hip after incisions have been dry over 72 hours 4. Take medications as prescribed As per infectious disease service: Continue Silvadene ramp on right foot and ankle with daily changes Continue oral antibiotics Discharge Disposition: TRANSFER TO SNF/ECF
[2017-07-05] MEDS: METOPROLOL TARTRATE 12.5 MG TAB PO SCH (10:18)
[2017-07-05] MEDS: AMIODARONE 200 MG TAB PO SCH (10:18)
[2017-07-05] MEDS: guaiFENesin 600 MG TABLET.ER PO SCH (10:18)
[2017-07-05] MEDS: Acetaminophen-Codeine 300-30mg TAB PO PRN (10:18)
[2017-07-05] MEDS: CARBIDOPA-LEVODOPA 25-100 MG 1 EACH TAB PO SCH (10:19)
[2017-07-05] MEDS: PANTOPRAZOLE 40 MG TABLET PO SCH (10:19)
[2017-07-05] MEDS: OXYBUTYNIN CHLORIDE 5 MG TAB PO SCH (10:19)
[2017-07-05 12:00] LABS: Glucose,Whole Blood 120 mg/dL (75-99)
[2017-07-05] MEDS: MULTIVITAMINS, THERA 1 EACH TAB PO SCH (12:07)
[2017-07-05] MEDS: CALCIUM CARBONATE 500 MG CHEWABLE PO SCH (12:07)
[2017-07-05 15:14] VITALS: BP 100/62; PULSE 79; TEMP 97.9
--- NOTE | 2017-07-05 22:37 | P.PN ---
Subjective Progress Note Date: 07/05/17 Principal diagnosis: pain right ankle 86-year-old female presents to hospital 9 days ago which point in time she suffered a fall resulting in a left intertrochanteric fracture. She subsequently was taken to the operating room with intramedullary nailing occurring for the fracture. With her age and debility including from dementia is having somewhat of a difficult recovery. She's had atrial fibrillation with rapid ventricular response that has now improved. She is a known history of a pulmonary embolus and is on chronic anticoagulation with Coumadin. With addition of amiodarone she's had an elevation of her INR and this is being monitored, patient without evidence of bleeding at this time. The patient has been seen by therapy and she is not weightbearing to the left leg but has been doing some therapy. She's being ready for transfer to extended care where she will receive care and therapy after the left hip fracture. The patient certainly is developed pain and swelling erythema to the right lower extremity especially distal around the ankle. There is notation that there was a small injury that almost appeared to be a puncture, however no known trauma had occurred. The erythema and tenderness have persisted and constantly the infectious diseases consultation was requested. The patient although poor historian is denying fever, chills or rigors. The site is uncomfortable. It has made some of her transfer activity much more difficult because of the pain at the foot and ankle area. She's not had this significant problem in the past. 07/05/2017 patient has further improvement and likely will be going to extended care today for the completion of her treatment Objective - Vital Signs Vital signs: Vital Signs Temp 97.9 F 07/05/17 15:12 Pulse 79 07/05/17 15:12 Resp 16 07/05/17 15:12 BP 100/62 07/05/17 15:12 Pulse Ox 97 07/05/17 15:12 Intake & Output 07/05/17 07/05/17 07/06/17 06:59 18:59 06:59 Intake Total 200 Balance 200 Intake: Oral 200 Other: Voiding Method Incontinent Diaper Incontinent # Voids 1 2 # Bowel Movements 1 - Exam 86-year-old female who is comfortable but complains of pain in her right ankle HEENT: Anicteric conjunctiva are pink and moist nasal mucosa grossly intact without significant lesions, there is no thrush. Fully edentulous Neck: The neck is supple without significant lymphadenopathy or thyromegaly. Lungs: Good bilateral air entry without significant crackles or wheezing. There is no significant bronchial sounds. There is no egophony or dullness. Heart: Irregular with an audible S1 and S2 soft S4 no murmur click or rub PMI was nondisplaced Abdomen: Positive bowel sounds soft and nontender without palpable masses or organomegaly. There was no guarding or rebound. Extremities: The upper extremities have excellent pulses they are symmetric, no significant petechiae or telangiectasia. No splinter hemorrhages were noted. Left hip reveals evidence of the recent intramedullary nailing surgical wounds are healing well without erythema crepitance or fluctuance. There is no significant amount of edema or tenderness at that site. The right lower extremity shows evidence of the significant erythema tenderness to the ankle area and dorsum of the foot. She has discomfort when this is manipulated. The erythema has now markedly improved. Tenderness is mostly resolved Neuro: Awake alert oriented to person but does not appear to have acute gross focal sensory motor deficits superimposed on her dementia - Labs CBC & Chem 7: 07/04/17 06:00 07/04/17 18:55 Labs: Abnormal Lab Results - Last 24 Hours (Table) 07/05/17 07/05/17 Range/Units 07:05 11:53 POC Glucose (mg/dL) 113 H 120 H (75-99) mg/dL Laboratory Results WBC 8.5 k/uL (3.8-10.6) 07/04/17 06:00 RBC 2.60 m/uL (3.80-5.40) L 07/04/17 06:00 Hgb 8.1 gm/dL (11.4-16.0) L 07/04/17 06:00 Hct 25.8 % (34.0-46.0) L 07/04/17 06:00 MCV 99.2 fL (80.0-100.0) 07/04/17 06:00 MCH 31.1 pg (25.0-35.0) 07/04/17 06:00 MCHC 31.3 g/dL (31.0-37.0) 07/04/17 06:00 RDW 17.0 % (11.5-15.5) H 07/04/17 06:00 Plt Count 313 k/uL (150-450) 07/04/17 06:00 Neutrophils % 71 % 07/04/17 06:00 Lymphocytes % 19 % 07/04/17 06:00 Monocytes % 6 % 07/04/17 06:00 Eosinophils % 2 % 07/04/17 06:00 Basophils % 1 % 07/04/17 06:00 Neutrophils # 6.0 k/uL (1.3-7.7) 07/04/17 06:00 Lymphocytes # 1.6 k/uL (1.0-4.8) 07/04/17 06:00 Monocytes # 0.5 k/uL (0-1.0) 07/04/17 06:00 Eosinophils # 0.1 k/uL (0-0.7) 07/04/17 06:00 Basophils # 0.0 k/uL (0-0.2) 07/04/17 06:00 Hypochromasia Slight 07/04/17 06:00 Poikilocytosis Slight 07/04/17 06:00 Anisocytosis Slight 07/04/17 06:00 Macrocytosis Slight 07/04/17 06:00 PT 13.8 sec (9.0-12.0) H 07/04/17 06:14 INR 1.5 (<1.2) H 07/04/17 06:14 APTT 31.6 sec (22.0-30.0) H 07/03/17 06:34 Sodium 137 mmol/L (137-145) 07/01/17 06:11 Potassium 4.2 mmol/L (3.5-5.1) 07/04/17 18:55 Chloride 108 mmol/L (98-107) H 07/01/17 06:11 Carbon Dioxide 26 mmol/L (22-30) 07/01/17 06:11 Anion Gap 3 mmol/L 07/01/17 06:11 BUN 14 mg/dL (7-17) 07/01/17 06:11 Creatinine 0.87 mg/dL (0.52-1.04) 07/01/17 06:11 Est GFR (CKD-EPI)AfAm 69 (>60 ml/min/1.73 sqM) 07/01/17 06:11 Est GFR (CKD-EPI)NonAf 60 (>60 ml/min/1.73 sqM) 07/01/17 06:11 Glucose 91 mg/dL (74-99) 07/01/17 06:11 POC Glucose (mg/dL) 120 mg/dL (75-99) H 07/05/17 11:53 POC Glu Parimutuel [employer] Cash[employer] ID Ana Maria Kline 07/05/17 11:53 Lactic Ac Sepsis Rflx Y 06/25/17 22:31 Plasma Lactic Acid Prieto 1.2 mmol/L (0.7-2.0) 06/26/17 01:53 Calcium 6.8 mg/dL (8.4-10.2) L 07/01/17 06:11 Magnesium 1.6 mg/dL (1.6-2.3) 07/04/17 18:55 Total Bilirubin 1.6 mg/dL (0.2-1.3) H 06/24/17 07:56 AST 412 U/L (14-36) H 06/24/17 07:56 ALT 50 U/L (9-52) 06/24/17 07:56 Alkaline Phosphatase 105 U/L (38-126) 06/24/17 07:56 Troponin I 0.085 ng/mL (0.000-0.034) H* 06/26/17 17:32 NT-Pro-B Natriuret Pep 1960 pg/mL 06/26/17 13:22 Total Protein 5.5 g/dL (6.3-8.2) L 06/24/17 07:56 Albumin 3.0 g/dL (3.5-5.0) L 06/24/17 07:56 Urine Color Yellow 06/23/17 12:17 Urine Appearance Cloudy (Clear) H 06/23/17 12:17 Urine pH 6.5 (5.0-8.0) 06/23/17 12:17 Ur Specific [place] 1.011 (1.001-1.035) 06/23/17 12:17 Urine Protein Trace (Negative) H 06/23/17 12:17 Urine Glucose (UA) Negative (Negative) 06/23/17 12:17 Urine Ketones Negative (Negative) 06/23/17 12:17 Urine Blood Negative (Negative) 06/23/17 12:17 Urine Nitrite Negative (Negative) 06/23/17 12:17 Urine Bilirubin Negative (Negative) 06/23/17 12:17 Urine Urobilinogen <2.0 mg/dL (<2.0) 06/23/17 12:17 Ur Leukocyte Esterase Negative (Negative) 06/23/17 12:17 Urine RBC 1 /hpf (0-5) 06/23/17 12:17 Urine WBC 1 /hpf (0-5) 06/23/17 12:17 Ur Squamous Epith Cells 1 /hpf (0-4) 06/23/17 12:17 Amorphous Sediment Rare /hpf (None) H 06/23/17 12:17 Urine Mucus Rare /hpf (None) H 06/23/17 12:17 C. difficile (EIA) Intrp Negative (Negative) 07/02/17 10:09 Blood Type B Positive 06/28/17 01:40 Blood Type Confirm B Positive 06/28/17 02:49 Blood Type Recheck CABO Indicated 06/28/17 01:40 Antibody Screen NEGATIVE 06/28/17 01:40 Crossmatch See Detail 06/28/17 01:40 Spec Expiration Date 07/01/2017 - 233906/28/17 01:40 Microbiology 06/25/17 21:30 Blood Blood Culture - Final No Growth after 144 hours 06/25/17 20:50 Blood Blood Culture - Final No Growth after 144 hours Assessment and Plan (1) Atrial fibrillation with RVR Status: Acute Code(s): I48.91 - UNSPECIFIED ATRIAL FIBRILLATION SNOMED Code( s): 319976731092491 (2) History of pulmonary embolism Status: Acute Code(s): Z86.711 - PERSONAL HISTORY OF PULMONARY EMBOLISM SNOMED Code(s): 461081105 (3) Fracture, intertrochanteric, left femur Status: Acute Code(s): S72.142A - DISPLACED INTERTROCHANTERIC FRACTURE OF LEFT FEMUR, INIT SNOMED Code(s): 337781760 (4) Elevated INR Status: Acute Code(s): R79.1 - ABNORMAL COAGULATION PROFILE SNOMED Code(s): 260086374 (5) Cellulitis of right leg Narrative/Plan: 86-year-old female presents to Hospital 06/23/2017 after a fall and resultant left intertrochanteric hip fracture. She was cared for by orthopedics and had the intramedullary nailing performed to the left hip fracture. She doing relatively well but had difficulties with atrial fibrillation with RVR is now better controlled. The patient however has developed swelling erythema and pain to the right foot and ankle area. There is notation that there may have been a puncture injury that but is not evident at this time. There is however distinct tenderness to range of motion and touch. There is erythema without purulence or lesions or drainage. Patient has evidence of the distinct cellulitis of the right foot and ankle area. Antibiotic therapy will be utilized with cefazolin, local wound care with Silvadene wrap will be applied. Doppler will be requested to ensure there is not a deep venous thrombosis, with her anticoagulation would seem unlikely but would like to ensure is not the case. Elevation of liver she tolerates will be helpful. Pain control appears to be adequate. It appears that she is further improved she will be transferred to the extended care facility for her further rehab. Medicine is following closely for her elevated INR. 07/03/2017 patient is feeling better today. Denies any fevers chills rigors or sweats. Pain of the ankle is improved. Left hip pain without acute difficulties. 07/04/2017 patient has further improvement. The pain swelling and erythema to the right foot is much improved. Left hip pain is also improved. There is notation of her transfer to extended care soon. Given the marked improvement of the foot will transition to oral cefuroxime 500 mg every 12 hours for 7 days at the time of her transfer. Local wound care as well as some Silvadene wrap this can be continued for the next several days until it is completely resolved. Ambulation and physical therapy is per his orthopedic surgeon regarding the recent left hip fracture and repair. 07/05/2017 reveals a patient with further improvement. The right foot is now considerably improved. She will be transitioned to oral cefuroxime 500 mg every 12 hours for 7 days at the extended care facility. They may continue to elevate and wrap the foot until it is completely resolved we're using Silvadene here. Ability to ambulate is as per the orthopedic surgeon regarding her left hip fracture repair. Orders placed for her to be able to go to extended care today. Status: Acute Code(s): L03.115 - CELLULITIS OF RIGHT LOWER LIMB SNOMED Code( s): 352451389
--- NOTE | 2017-07-06 14:49 | CDI ---
Last Revision, February 2017 Documentation Clarification Form Date: 07/06/17 From: Isabell Castañeda Phone: If you have a question regarding this query, please contact Yael Millan at [phone] between 8am and 5pm. Admit Date: 07/04/2017 4:30:00 PM Patient Name: Jesse Oneal Visit Number: [id number] Discharge Date: 07/05/17 ATTENTION: The Clinical Documentation Specialists (CDI) and [facility] Coding Staff appreciate your assistance in clarifying documentation. Please respond to the clarification below the line at the bottom and electronically sign. The CDI & [facility] Coding staff will review the response and follow-up if needed. Please note: Queries are made part of the Legal Health Record. If you have any questions, please contact the author of this message via ITS. Dr. Malick Holley, The patient had angioplasty and stent insertion of the left SFA, common iliac artery and popliteal artery on an outpatient basis. On 07/04/17, the patient was admitted as an inpatient. Patient history/risk factors: PVD due to atherosclerosis of the bilateraly lower extremities with intermittent claudication. Clinical Indicators: Per nursing documentation, the patient had a nose bleed and required intubation during the procedure. Vital Signs: On admission to inpatient: T. 98.1, P 64, R. 18, BP 119/61. Resp went up after admission to 27 - 30. In your professional opinion, can you please clarify the reason the patient was admitted as inpation after surgery? Other, please specify Unable to determine MTDD
--- NOTE | 2017-07-06 18:59 | PN ---
PROGRESS NOTE DATE OF SERVICE: 07/05/2017 PRESENTING COMPLAINT: Femur fracture. INTERVAL HISTORY: This patient was seen by me yesterday. Patient is status post femur fracture, doing much better. Also cellulitis of the right ankle area is doing much better. Tolerating a diet. Does feel a bit weak. Family at the bedside. REVIEW OF SYSTEMS: Done for constitutional, cardiovascular, GI, pulmonary; relevant findings as above. CURRENT MEDICATIONS: Reviewed. PHYSICAL EXAMINATION: Temperature 97.9, pulse 79, respiration 16, blood pressure 100/62, pulse ox 97% on room air. GENERAL APPEARANCE: Lying in bed, awake. EYES: Pupils equal. Conjunctivae pale. HEENT: External appearance of nose and ears normal. Oral cavity normal. Decreased hearing. NECK: JVD not raised. Mass not palpable. RESPIRATORY: Effort normal. LUNGS: Decreased breath sounds. CARDIOVASCULAR: First and second sounds normal. No edema. ABDOMEN: Soft, non-tender. Liver and spleen not palpable. PSYCHIATRY: Alert and oriented x3. Mood and affect normal. INVESTIGATIONS: Accu-Cheks are noted. ASSESSMENT: 1. Left femur intertrochanteric fracture, displaced, secondary to a fall, followed by intertrochanteric hip screw placement. 2. Paroxysmal atrial flutter/fibrillation with rapid ventricular rate, now in sinus rhythm, on Coumadin. 3. Status post Coumadin toxicity. 4. Acute right lower extremity cellulitis in the right ankle area, improved. 5. Parkinson disease. 6. Dementia associated with Parkinson disease. 7. Chronic urinary incontinence. 8. Chronic pulmonary embolism, for which patient is on Coumadin. 9. Moderate aortic stenosis, non-rheumatic. 10.Chronic osteoporosis. 11.Chronic gait dysfunction. At baseline patient uses a walker. PLAN: Patient is medically stable to be discharged. Coumadin needs to be followed closely. Antibiotics per Dr. Espinal. MMODL / IJN: [id number] /
--- NOTE | 2017-07-11 12:20 | CDI ---
Last Revision, February 2017 Documentation Clarification Form Date: 07/11/17 From: Isabell Castañeda Phone: If you have a question regarding this query, please contact Yael Millan at [phone] between 8am and 5pm. Admit Date: 06/23/2017 3:39:00 PM Patient Name: Ivon Easton Visit Number: [id number] Discharge Date: 07/05/17 ATTENTION: The Clinical Documentation Specialists (CDI) and [facility] Coding Staff appreciate your assistance in clarifying documentation. Please respond to the clarification below the line at the bottom and electronically sign. The CDI & [facility] Coding staff will review the response and follow-up if needed. Please note: Queries are made part of the Legal Health Record. If you have any questions, please contact the author of this message via ITS. Dr. Tereza Zambrano Thank you for signing the previous query. Please document a response before signing this query. Documentation in the nutritional assessment states that the patient is overweight. Patient has a BMI of 36.3 Patient history/risk factors: Patient was admitted for left hip fracture and repair. There is a history of hypertension, Parkinson's and hyperlipidemia. In your professional opinion, can you please document a diagnosis that correlates with the above findings? Overweight Obesity Other, please specify Unable to determine . The patient has obesity with a BMI of 36.3 as well as Parkinson's and hyperlipidemia and hypertension. She is osteopenic and sustained a hip fracture for which she underwent internal fixation surgically. Postoperatively she had hypotension which required further intervention with cardiology and medical management. The hypotension was an unexpected event status post left hip fracture repair. It was not specifically related to the hip fracture. She was managed appropriately with cardiology and medical management. LOUANN
--- NOTE | 2017-07-13 10:29 | CDI ---
Last Revision, February 2017 Documentation Clarification Form Date: 07/13/17 From: Christa Jackson RN Admit Date: 06/23/2017 3:39:00 PM Patient Name: Ivon Easton Visit Number: [id number] Discharge Date: 07/05/17 ATTENTION: The Clinical Documentation Specialists (CDI) and [facility] Coding Staff appreciate your assistance in clarifying documentation. Please respond to the clarification below the line at the bottom and electronically sign. The CDI & [facility] Coding staff will review the response and follow-up if needed. Please note: Queries are made part of the Legal Health Record. If you have any questions, please contact the author of this message via ITS. Dr. Malick Holley, Further clarification is sought regarding the documentation of Post op Atrial Fibrillation 06/26 - 07/03. Patients Admitting Diagnosis: left femur intertrochanteric hip fracture, status post fall Post-Operative Diagnosis: same Procedure performed 06/25/2017 intertrochanteric hip screw placement, closed reduction 06/26 PN states New onset A-fib 07/01 PN states pt. developed a fib with rvr. PN states patient transferred to chair went into A-Fib, History/Risk Factors: PMH of Parkinsons, dementia, PE, osteoporosis, breast ca, mini stroke. A-fib on Coumadin \ Echo performed 06/26 with sinus rhythm, mild pulm htn and moderate aortic valve sclerosis. Presenting INR of 4.9 treated preoperatively with Vitamin K, Clinical Indicators: Afib with RVR and hypotension Treatment: Move to ICU Consults: Cardiology Amiodarone drip started, dc with oral amnio and Coumadin continued In order to accurately reflect this patients severity of illness, please clarify if the post-operative A-Fib is: A-fib is an unexpected post-procedural or post-surgical condition related to surgical care A- fib 2nd to underlying medical condition Other, please specify Unable to determine Please continue to document in your progress notes and discharge summary in order to capture severity of illness and risk of mortality. Include clinical findings that support your diagnosis. MTDD
== END 2017-07-05 17:17 | DRG 480 ==
LOC: EC 12:56 → 3SUR 15:39 → 6ICU 06-26 11:04 → 6SEL 06-28 02:12 → 3SUR 07-04 17:25
PROVIDERS: ADMIT Orthopaedic Surgery Orthopaedic Surgery of the Spine; ATTEND Orthopaedic Surgery Orthopaedic Surgery of the Spine
PROC: 0QS706Z Reposition Left Upper Femur with Intramedullary Internal Fixation Device, Open Approach (ICD-10-PCS; principal; 2017-06-25 11:10)
PROC: 02HV33Z Insertion of Infusion Device into Superior Vena Cava, Percutaneous Approach (ICD-10-PCS; 2017-06-27)
PROC: 30233N1 Transfusion of Nonautologous Red Blood Cells into Peripheral Vein, Percutaneous Approach (ICD-10-PCS; 2017-06-28)
DX: S72.142A Displaced intertrochanteric fracture of left femur, initial encounter for closed fracture (principal); J15.6 Pneumonia due to other Gram-negative bacteria; I27.82 Chronic pulmonary embolism; L03.115 Cellulitis of right lower limb; D62 Acute posthemorrhagic anemia; J98.11 Atelectasis; I95.9 Hypotension, unspecified; G20 Parkinson's disease; I48.0 Paroxysmal atrial fibrillation; S91.031A Puncture wound without foreign body, right ankle, initial encounter; E66.9 Obesity, unspecified; F02.80 Dementia in other diseases classified elsewhere, unspecified severity, without behavioral disturbance, psychotic disturbance, mood disturbance, and anxiety; H91.90 Unspecified hearing loss, unspecified ear; E78.5 Hyperlipidemia, unspecified; I35.0 Nonrheumatic aortic (valve) stenosis; M81.0 Age-related osteoporosis without current pathological fracture; N39.3 Stress incontinence (female) (male); R79.1 Abnormal coagulation profile; T45.515A Adverse effect of anticoagulants, initial encounter; R26.9 Unspecified abnormalities of gait and mobility; I10 Essential (primary) hypertension; Z68.36 Body mass index [BMI] 36.0-36.9, adult; Z79.01 Long term (current) use of anticoagulants; Z79.899 Other long term (current) drug therapy; Z85.3 Personal history of malignant neoplasm of breast; Z86.718 Personal history of other venous thrombosis and embolism; Z90.12 Acquired absence of left breast and nipple; Z96.641 Presence of right artificial hip joint; Z90.49 Acquired absence of other specified parts of digestive tract; Z66 Do not resuscitate; Z86.73 Personal history of transient ischemic attack (TIA), and cerebral infarction without residual deficits; W01.0XXA Fall on same level from slipping, tripping and stumbling without subsequent striking against object, initial encounter; X58.XXXA Exposure to other specified factors, initial encounter; Y92.002 Bathroom of unspecified non-institutional (private) residence as the place of occurrence of the external cause; Y92.009 Unspecified place in unspecified non-institutional (private) residence as the place of occurrence of the external cause; Y92.239 Unspecified place in hospital as the place of occurrence of the external cause
CPT/HCPCS: 00000; 36415; 36569; 70450; 71045; 72125; 73502; 76937; 80048; 80053; 81001; 83605; 83735; 83880; 84132; 84484; 85025; 85610; 85730; 86850; 86900; 86901; 86920; 87040; 87324; 88305; 88311; 93005; 93306; 93970; 94640; 94760; 96374; 96376; 99285

== ENCOUNTER → 2017-12-07 | Outpatient (CLI) | payer MEDICARE, BC ==
--- NOTE | 2017-12-10 07:32 | MM ---
Reason for exam: screening (asymptomatic). Last mammogram was performed 1 year and 4 months ago. History: Patient is postmenopausal and has history of breast cancer at age 63. Family history of breast cancer in sister, premenopausal breast cancer in sister at age 40, and breast cancer in paternal aunt at age 30. Mastectomy of the left breast, 1994. Excisional biopsy of the left breast. Physical Findings: A clinical breast exam by your physician is recommended on an annual basis and results should be correlated with mammographic findings. MG Screen David Unilateral W/Cad Bilateral CC and MLO view(s) were taken. Prior study comparison: August 18, 2016, right breast MG diagnostic mammo RT w CAD. August 13, 2015, right breast MG 3d diag mammo w/cad RT. There are scattered fibroglandular densities. Extensive vascular calcifications. No significant changes when compared with prior studies. ASSESSMENT: Benign, BI-RAD 2 RECOMMENDATION: Follow-up diagnostic mammogram of the right breast in 1 year.
== END | disposition home or self-care (01) ==
LOC: RADMAMWWP 13:09
PROVIDERS: ATTEND Family Medicine
DX: Z12.31 Encounter for screening mammogram for malignant neoplasm of breast (principal)
CPT/HCPCS: 77067